=== PATIENT | female | born 1940 | race Caucasian/White ===

== ENCOUNTER 2019-03-04 15:03 | Emergency (ER) | payer MEDICARE, OTHER ==
[~2019-03-04] VITALS: Ht 167.6 cm; Wt 81.6 kg
--- OUTSIDE RECORDS SUMMARY | 2019-03-04 15:09 | XMS REPORT | Continuity of Care Document ---
Author Organization Unknown Address Unknown Allergies Active Description Code Type Severity Reaction Onset Reported/Identified Relationship to Patient Clinical Status Yes CIPROFLOXACIN 89025 DRUG INGREDI Low Rash 08/21/2018 Medications There is no data. Problems Date Dx Coded Attending Type Code Diagnosis Diagnosed By 09/02/2018 HAMILTON, JACKY I48.91 Unspecified atrial fibrillation 09/02/2018 HAMILTON, JACKY I48.91 Unspecified atrial fibrillation 09/02/2018 KORESUSANIJ, JACKY I48.91 Unspecified atrial fibrillation 09/02/2018 KORESUSANIJ, JACKY I48.91 Unspecified atrial fibrillation 09/02/2018 KORESUSANIJ, JACKY I48.91 Unspecified atrial fibrillation 09/02/2018 KARY FORTE I48.91 Unspecified atrial fibrillation 09/03/2018 KORESUSANIJ, JACKY I48.91 Unspecified atrial fibrillation 09/03/2018 KORESUSANIJ, JACKY I48.91 Unspecified atrial fibrillation 09/03/2018 KORECKIJ, JACKY I48.91 Unspecified atrial fibrillation 09/03/2018 KORECKIJ, JACKY I48.91 Unspecified atrial fibrillation 09/03/2018 KORECKIJ, JACKY I48.91 Unspecified atrial fibrillation 09/03/2018 KORECKIJ, JACKY I48.91 Unspecified atrial fibrillation 09/03/2018 KORECKIJ, JACKY I48.91 Unspecified atrial fibrillation 09/03/2018 KORECKIJ, JACKY I48.91 Unspecified atrial fibrillation 09/03/2018 KORECKIJ, JACKY I48.91 Unspecified atrial fibrillation 09/03/2018 KORECKIJ, JACKY I48.91 Unspecified atrial fibrillation 09/03/2018 KORECKIJ, JACKY I48.91 Unspecified atrial fibrillation 09/03/2018 KORECKIJ, JACKY I48.91 Unspecified atrial fibrillation 09/04/2018 KORECKIJ, JACKY I48.91 Unspecified atrial fibrillation 09/04/2018 HAMILTON, JACKY I48.91 Unspecified atrial fibrillation 09/04/2018 HAMILTON, JACKY I48.91 Unspecified atrial fibrillation 09/04/2018 HAMILTON, JACKY I48.91 Unspecified atrial fibrillation 09/04/2018 I10 Essential (primary) hypertension 09/04/2018 KARY FORTE I10 Essential (primary) hypertension 09/04/2018 HAMILTON JACKY M48.062 Spinal stenosis, lumbar region with neurogenic claudication 09/04/2018 HAMILTON, JACKY M48.062 Spinal stenosis, lumbar region with neurogenic claudication 09/04/2018 HAMILTON, JACKY M48.062 Spinal stenosis, lumbar region with neurogenic claudication 09/11/2018 Z79.01 intermediate (current) use of anticoagulants 09/11/2018 KARY FORTE Z79.01 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 crystal cutter (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) use of anticoagulants 09/11/2018 E03.9 Hypothyroidism, unspecified 09/15/2018 78 Atrial fibrillation 09/15/2018 I48.0 Paroxysmal atrial fibrillation 09/15/2018 I48.0 Paroxysmal atrial fibrillation 09/15/2018 I07.1 Rheumatic tricuspid insufficiency 09/15/2018 KARY FORTE I07.1 Rheumatic tricuspid insufficiency 10/27/2018 KARY FORTE E78.5 Hyperlipidemia, unspecified 10/27/2018 KARY FORTE E78.5 Hyperlipidemia, unspecified 10/27/2018 KARY FORTE E78.5 Hyperlipidemia, unspecified 10/27/2018 KARY FORTE I48.91 Unspecified atrial fibrillation 10/27/2018 KARY FORTE E78.5 Hyperlipidemia, unspecified 10/27/2018 KARY FORTE I48.91 Unspecified atrial fibrillation Procedures Code Description Performed By Performed On IVT3 INSERT PERIPHERAL IV 09/02/2018 [id number] HEMOGLOBIN 09/02/2018 GOY9058 TYPE AND SCREEN 09/02/2018 RVD319 NOTIFY PHYSICIAN 09/02/2018 RFY396 HEIGHT AND WEIGHT 09/02/2018 OFI665 VITAL SIGNS 09/02/[address] SEQUENTIAL COMPRESSION DEVICE 09/02/2018 MWQ421 MAINTAIN SEQUENTIAL COMPRESSION DEVICE 09/02/2018 ZMF292 APPLY WARMING BLANKET 09/02/2018 TRR877 GLUCOSE POC 09/02/2018 TYZ0630 ABORH TYPE 09/02/2018 LGN3341 ANTIBODY SCREEN 09/02/2018 LVN6776 HEMOGLOBIN 09/02/2018 PWP7368 ABORH TYPE 09/02/2018 UFQ7889 ANTIBODY SCREEN 09/02/2018 ECG1 ECG 09/02/2018 ECG1 ECG 09/02/[address] PATIENT IN OBSERVATION 09/02/2018 DZB2476 RETYPE PATIENT ABORH 09/02/2018 COD2 FULL CODE 09/02/2018 KLP021 IP CONSULT TO HOSPITALIST 09/02/2018 MIR708 TELEMETRY MONITORING - CLASS I 09/02/2018 ATK511 IP CONSULT TO CARDIOLOGY 09/02/2018 [id number] BASIC METABOLIC PANEL 09/02/2018 BCI3665 CBC AND DIFF (MANUAL DIFF IF NECESSARY) 09/02/2018 KQX6230 HEMOGLOBIN A1C 09/02/2018 XAA7121 THYROID STIMULATING HORMONE 09/02/2018 ALF7761 RETYPE PATIENT ABORH 09/02/2018 JNF8168 NURSING COMMUNICATION 09/02/2018 ECH25 ECHO COMPLETE WITH DOPPLER AND COLOR FLOW 09/02/2018 DIET24 DIET 09/02/2018 RLO8192 NURSING COMMUNICATION 09/02/2018 VUH0389 NURSING COMMUNICATION 09/02/2018 CQA4723 POTASSIUM 09/03/2018 VHZ4785 POTASSIUM 09/03/2018 SUR1 CASE REQUEST OPERATING ROOM 09/03/2018 DIET41 DIET NPO 09/03/2018 IJR295 INCENTIVE SPIROMETRY NURSING 09/03/2018 VFD3142 XR LUMBAR SPINE 2 OR 3 VIEWS 09/03/2018 NAP4037 XR SPINE SINGLE VIEW 09/03/2018 HGU980 CONSULT TO CARE PROGRESSION 09/03/2018 PCN810 REASON FOR NO VTE PROPHYLAXIS - PHARMACOLOGICAL 09/03/2018 IVT11 SALINE LOCK IV 09/03/2018 SQA067 UP WITH ASSISTANCE 09/03/2018 HUA699 WEIGHT BEARING STATUS 09/03/2018 QBC008 NOTIFY PHYSICIAN 09/03/2018 TIV198 NURSING COMMUNICATION 09/03/2018 OZT537 INCENTIVE SPIROMETRY NURSING 09/03/2018 OYQ121 INTAKE AND OUTPUT 09/03/2018 ZUO165 VITAL SIGNS 09/03/2018 WVE766 FREQUENT ASSESSMENT 09/03/2018 NYA047 POST-OP ILEUS PREVENTION 09/03/2018 PRE5 FALL PRECAUTIONS 09/03/2018 PT4 PT EVAL AND TREAT 09/03/2018 LJZ341 REASON FOR NO VTE PROPHYLAXIS - PHARMACOLOGICAL 09/03/2018 EVQ672 WEIGHT BEARING STATUS 09/03/2018 QNK320 STRAIGHT CATH 09/03/2018 LPV248 INTAKE AND OUTPUT 09/03/[address] SEQUENTIAL COMPRESSION DEVICE 09/03/2018 GKR125 MAINTAIN SEQUENTIAL COMPRESSION DEVICE 09/03/2018 OT1 OT EVAL AND TREAT 09/03/2018 DIET24 DIET 09/03/2018 YRG3995 BASIC METABOLIC PANEL 09/04/2018 FYW1857 CBC AND DIFF (MANUAL DIFF IF NECESSARY) 09/04/2018 FHC3055 MAGNESIUM 09/04/2018 JHW4937 BASIC METABOLIC PANEL 09/04/2018 PLY1913 CBC AND DIFF (MANUAL DIFF IF NECESSARY) 09/04/2018 LRZ8466 MAGNESIUM 09/04/2018 DIET24 DIET 09/04/2018 SNT940 WEIGHT BEARING STATUS 09/04/2018 CVH285 FOLLOW UP PRIMARY PHYSICIAN 09/04/2018 QPX117 CHANGE DRESSING 09/04/2018 ALQ127 DISCHARGE INSTRUCTIONS 09/04/2018 TPK908 PATIENT MAY SHOWER 09/04/2018 NUR6 ACTIVITY ORDER 09/04/2018 ADT8 DISCHARGE PATIENT 09/04/2018 IVT10 DISCONTINUE IV 09/04/2018 ADT8 DISCHARGE PATIENT 09/04/2018 POC44 POCT LIPID PANEL 10/27/2018 POC44 POCT LIPID PANEL 10/27/2018 CAR54 ECG 10/27/2018 Results Test Result Range HEMOGLOBIN - 09/02/18 10:35 Hemoglobin 13.1 12.0-15.0 ABORH TYPE - 09/02/18 10:35 ABORH Type A Positive NRG ANTIBODY SCREEN - 09/02/18 10:35 Antibody Screen Negative Negative CBC AND DIFF (MANUAL DIFF IF NECESSARY) - 09/02/18 15:42 WBC 4.41 4.00-11.00 Hematocrit 34 36-45 Hemoglobin 11.9 12.0-15.0 MCH 32 27-34 MCHC 35 32-36 MCV 90 80-99 MPV 8.7 9.4-12.3 Platelet Count 245 140-400 RBC 3.74 4.00-5.00 RDW 12.3 9.0-14.5 NUCLEATED RBCS 0 0-0 % NEUTROPHILS 44 45-78 %LYMPHOCYTES 42 15-47 %MONOCYTES 10 0-12 %EOSINOPHILS 2 0-7 %BASOPHILS 1 0-2 % IMM GRANS 1 0-1 # GRANULOCYTES 1.97 1.70-6.80 # LYMPHOCYTES 1.85 1.00-3.30 # MONOCYTES 0.46 0.20-0.90 # EOSINOPHILS 0.10 0.00-0.40 # BASOPHILS 0.03 0.00-0.10 BASIC METABOLIC PANEL - 09/02/18 15:42 Blood Urea Nitrogen 13 7-26 Chloride 96 96-112 Carbon Dioxide 26 20-32 Creatinine 0.6 0.4-1.1 Glucose 106 70-100 Potassium 3.6 3.5-5.3 Sodium 130 133-147 Calcium 9.9 8.4-10.5 Anion Gap 8 TX 5-17 GFR FEMALE AA 116 TX 60-200 GFR FEMALE NON-AA 96 TX 60-200 HEMOGLOBIN A1C - 09/02/18 15:42 Hemoglobin A1C 6.1 4.0-5.6 THYROID STIMULATING HORMONE - 09/02/18 15:42 Thyroid Stimulating Hormone 0.49 0.47-4.68 RETYPE PATIENT ABORH - 09/02/18 15:42 ABORH Type A Positive NRG Confirm Blood Type Yes NRG POTASSIUM - 09/03/18 07:19 Potassium 4.1 3.5-5.3 CBC AND DIFF (MANUAL DIFF IF NECESSARY) - 09/04/18 09:13 WBC 9.74 4.00-11.00 Hematocrit 35 36-45 Hemoglobin 12.3 12.0-15.0 MCH 32 27-34 MCHC 35 32-36 MCV 90 80-99 MPV 9.1 9.4-12.3 Platelet Count 258 140-400 RBC 3.90 4.00-5.00 RDW 12.4 9.0-14.5 NUCLEATED RBCS 0 0-0 % NEUTROPHILS 84 45-78 %LYMPHOCYTES 10 15-47 %MONOCYTES 5 0-12 %EOSINOPHILS 0 0-7 %BASOPHILS 0 0-2 % IMM GRANS 1 0-1 # GRANULOCYTES 8.25 1.70-6.80 # LYMPHOCYTES 0.96 1.00-3.30 # MONOCYTES 0.52 0.20-0.90 # EOSINOPHILS 0.00 0.00-0.40 # BASOPHILS 0.01 0.00-0.10 BASIC METABOLIC PANEL - 09/04/18 09:13 Blood Urea Nitrogen 18 7-26 Chloride 93 96-112 Carbon Dioxide 29 20-32 Creatinine 0.8 0.4-1.1 Glucose 113 70-100 Potassium 3.5 3.5-5.3 Sodium 134 133-147 Calcium 9.7 8.4-10.5 Anion Gap 12 TX 5-17 GFR FEMALE AA 83 TX 60-200 GFR FEMALE NON-AA 69 TX 60-200 MAGNESIUM - 09/04/18 09:13 Magnesium 1.1 1.4-2.7 BASIC METABOLIC PANEL - 09/15/18 14:31 Blood Urea Nitrogen 14 7-26 Chloride 91 96-112 Carbon Dioxide 29 20-32 Creatinine 0.6 0.4-1.1 Glucose 113 70-100 Potassium 3.7 3.5-5.3 Sodium 131 133-147 Calcium 9.4 8.4-10.5 Anion Gap 11 TX 5-17 GFR FEMALE AA 116 TX 60-200 GFR FEMALE NON-AA 96 TX 60-200 MAGNESIUM - 09/15/18 14:31 Magnesium 1.2 1.4-2.7 Encounters ACCT No. Visit Date/Time Discharge Status Pt. Type Provider Facility Loc./Unit Complaint [id number] 10/27/2018 15:13:14 10/27/2018 23:59:59 CLS Outpatient KARY FORTE [facility] Paroxysmal Atrial Fibrillation [id number] 09/15/2018 14:25:38 09/15/2018 23:59:59 CLS Outpatient [facility] Paroxysmal atrial fibrillation [id number] 09/15/2018 13:00:36 09/15/2018 23:59:59 CLS Outpatient [facility] Atrial fibrillation [id number] 09/02/2018 09:26:00 09/04/2018 15:58:00 DIS Outpatient JACKY VILLASENOR [facility] Unspecified atrial fibrillation [id number] 09/03/2018 12:00:35 Document Registration
--- NOTE | 2019-03-04 16:03 | ED Integumentary General ---
General Chief Complaint: Skin/Wound Problems Stated Complaint: LT HEEL PAIN Nursing Triage Note: PATIENT C/O BLISTER ON THE INSIDE OF HER LEFT FOOT/HEEL AREA. STATES THAT IT BEGAN A SMALL BLISTER AND HAS GOTTEN LARGER SINCE THIS MORNING. SHE REPORTS THAT SHE HAD THIS SAME PROBLEM BACK IN JUNE OF 2018 AND THE VP PUBLIC RELATIONS LANCED THE BLISTER AND IT BLED A LOT. SHE CAME TO THE ER BECAUSE THE BLISTER MAKES IT PAINFUL TO WALK AND SHE IS AFRAID THAT SHE WON'T BE ABLE TO CONTROL THE BLEEDING IF IT BREAKS AT HOME ESPECIALLY SINCE SHE HAD TO BEGIN TAKING A BLOOD THINNER BACK IN SEPTEMBER. Source: patient, family Exam Limitations: no limitations History of Present Illness Date Seen by Provider: Mar 04, 2019 Time Seen by Provider: 15:58 Initial Comments This 78-year-old female presents with a recurrent blister the medial aspect of her left ankle. She had an initial blister in June which ultimately spontaneously resolved the etiology of which was never clear. Patient has had a recurrent blister to the same area. It has progressed she believes because of having them placed on AHLQUIST for atrial fibrillation in September. Patient has had multiple orthopedic Procedures. 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 She has been compliant on her AHLQUIST. She has no other evidence of bleeding or bruising. Allergies and Home Medications Patient Home Medication List Home Medication List Reviewed: Yes Review of Systems Review of Systems Constitutional: no symptoms reported EENTM: no symptoms reported Respiratory: no symptoms reported Cardiovascular: other Gastrointestinal: No abdominal pain Genitourinary: no symptoms reported Musculoskeletal: no symptoms reported Skin: see HPI, other Psychiatric/Neurological: No Symptoms Reported (blister medial left ankle) Endocrine: No Symptoms Reported Past Cmhaeqn-Xdqgep-Hqvnhs Hx Past Med/Social Hx: Reviewed Nursing Past Med/Soc Hx Patient Social History Alcohol Use: Denies Use Recreational Drug Use: No Smoking Status: Never a Smoker 2nd Hand Smoke Exposure: No Recent Foreign Travel: No Contact w/Someone Who Travel: No Recent Infectious Disease Expo: No Recent Hopitalizations: No Physical Abuse: No Sexual Abuse: No Mistreated: No Fear: No Immunizations Up To Date Tetanus Booster (TDap): Less than 5yrs Seasonal Allergies Seasonal Allergies: No Past Medical History Surgeries: Yes (BILATERAL KNEE, MULTIPLE BACK SURGERIES, ) Orthopedic Respiratory: Yes COPD Cardiac: Yes Atrial Fibrillation, Hypertension Neurological: No Genitourinary: No Gastrointestinal: Yes Gastroesophageal Reflux Musculoskeletal: Yes Chronic Back Pain Endocrine: No HEENT: No Cancer: No Psychosocial: No Integumentary: No Blood Disorders: No Physical Exam Vital Signs Vital Signs - First Documented 03/04/19 15:08 Temp 97.8 Pulse 107 Resp 18 B/P (MAP) 152/75 (100) Pulse Ox 95 O2 Delivery Room Air Capillary Refill : Less Than 3 Seconds General Appearance: WD/WN, no apparent distress HEENT: normal ENT inspection Neck: normal inspection Cardiovascular: irregularly irregular Respiratory: lungs clear Gastrointestinal: non tender, soft Back: normal inspection Extremities: normal range of motion, non-tender, normal inspection Neurologic/Psychiatric: no motor/sensory deficits, alert, normal mood/affect Skin: normal color, warm/dry, other (blister medial aspect left ankle) Skin Problem Character: bullous Progress/Results/Core Measures Results/Orders Vital Signs/I&O 03/04/19 15:08 Temp 97.8 Pulse 107 Resp 18 B/P (MAP) 152/75 (100) Pulse Ox 95 O2 Delivery Room Air Blood Pressure Mean: 100 Progress Progress Note : Time: 16:02 Progress Note After a discussion with the patient and her daughter concerning treatment options I aspirated the blister with an 18-gauge needle and sent the fluid which was serosanguineous for culture and sensitivity. I applied pressure dressing and applying gauze and Coban and. Patient tolerated the procedure well. I recommended the patient elevate the left foot above the level of the heart and leave the pressure dressing in place for at least 36 hours. I asked that she follow-up with her primary care physician and her historical site guide on Friday. I invited her return to the emergency department should any further problems or questions. Departure Impression Primary Impression: Blister Disposition: HOME, SELF-CARE Condition: Improved Departure-Patient Inst. Decision time for Depature: 16:03 Referrals: AVNI MONTOYA MD (PCP/Family) Primary Care Physician Patient Instructions: Blisters Add. Discharge Instructions: Karina a pressure dressing in place until Friday. Follow-up with your doctor in your historical site guide on Friday. Return if any problems or questions. Elevate the left foot as much as possible. All discharge instructions reviewed with patient and/or family. Voiced understanding. DINORAH HERNANDEZ MD Mar 04, 2019 16:03
[2019-03-04 16:10] VITALS: BP 146/77
== END 2019-03-04 16:09 | disposition home or self-care (01) ==
LOC: EDUNIT# 15:03 → ER FS 15:05
DX: S90.522A Blister (nonthermal), left ankle, initial encounter (principal); I48.91 Unspecified atrial fibrillation; J44.9 Chronic obstructive pulmonary disease, unspecified; I10 Essential (primary) hypertension; K21.9 Gastro-esophageal reflux disease without esophagitis; X58.XXXA Exposure to other specified factors, initial encounter
CPT/HCPCS: 10060; 87070; 87205

== ENCOUNTER 2019-09-15 07:32 | Emergency (ER) | payer MEDICARE, OTHER ==
[~2019-09-15] VITALS: Ht 167.7 cm; Wt 84.1 kg
--- NOTE | 2019-09-15 08:37 | ED EENT ---
History of Present Illness General Chief Complaint: Nasal Problems Stated Complaint: EPISTAXIS Nursing Triage Note: Patient reports she has had an intermittent nosebleed since early yesterday morning, states it has not resolved with holding pressure since starting again this morning. Source: patient, family Exam Limitations: no limitations History of Present Illness Date Seen by Provider: Sep 15, 2019 Time Seen by Provider: 08:31 Initial Comments This 78-year-old white female presents with a left-sided epistaxis of 24 hours duration. The patient is on Ellick was for A. fib. The patient has had no other site of bleeding or bruising. The patient has had a number of large clots that have passed down her throat. Next The patient has had no associated upper respiratory symptoms, fever, chills, headache photophobia or stiff neck. She is under the care of [facility] cardiology. She has seen Dr. Cox in the past. Allergies and Home Medications Allergies Coded Allergies: ciprofloxacin (Verified Allergy, Unknown, 09/15/19) Patient Home Medication List Home Medication List Reviewed: Yes Review of Systems Review of Systems Constitutional: No chills, No fever Eyes: No Symptoms Reported Ears: No Symptoms Reported Nose: see HPI, clots, epistaxis (left sided); denies purulent discharge Mouth: other (clots down the back of the throat from the epistaxis.) Throat: other (clots down the back of the throat from the left-sided epistaxis.) Respiratory: no symptoms reported Cardiovascular: no symptoms reported Gastrointestinal: no symptoms reported : No Musculoskeletal: no symptoms reported Skin: no symptoms reported, change in hair/nails Hematologic/Lymphatic: No Symptoms Reported Immunological/Allergic: no symptoms reported Past Zfzyybc-Fsgjvc-Rigpaa Hx Past Med/Social Hx: Reviewed Nursing Past Med/Soc Hx Patient Social History Alcohol Use: Denies Use Recreational Drug Use: No Smoking Status: Never a Smoker 2nd Hand Smoke Exposure: No Recent Foreign Travel: No Contact w/Someone Who Travel: No Recent Infectious Disease Expo: No Recent Hopitalizations: No Physical Abuse: No Sexual Abuse: No Mistreated: No Fear: No Immunizations Up To Date Tetanus Booster (TDap): Less than 5yrs Seasonal Allergies Seasonal Allergies: No Past Medical History Surgeries: Yes (BILATERAL KNEE, MULTIPLE BACK SURGERIES, ) Orthopedic Respiratory: Yes COPD Cardiac: Yes Atrial Fibrillation, Hypertension Neurological: No Genitourinary: No Gastrointestinal: Yes Gastroesophageal Reflux Musculoskeletal: Yes Chronic Back Pain Endocrine: No HEENT: No Cancer: No Psychosocial: No Integumentary: No Blood Disorders: No Physical Exam Vital Signs Vital Signs - First Documented 09/15/19 07:39 Temp 36.9 Pulse 102 Resp 18 B/P (MAP) 161/82 (108) Pulse Ox 98 O2 Delivery Room Air Height, Weight, BMI Height: 5'6.00" Weight: 180lbs. oz. 81.983498rq; 29.00 BMI Method:Stated General Appearance: WD/WN, mild distress Eyes: bilateral eye normal inspection Ears: bilateral ear auricle normal Nose: active bleeding Mouth/Throat: normal mouth inspection Neck: non-tender, supple Cardiovascular: irregularly irregular Respiratory: lungs clear, normal breath sounds, no respiratory distress Gastrointestinal: normal bowel sounds, non tender, soft Neurologic/Psychiatric: no motor/sensory deficits, alert, normal mood/affect, oriented x 3 Skin: normal color, warm/dry Progress/Results/Core Measures Results/Orders Vital Signs/I&O 09/15/19 07:39 Temp 36.9 Pulse 102 Resp 18 B/P (MAP) 161/82 (108) Pulse Ox 98 O2 Delivery Room Air Blood Pressure Mean: 108 Progress Progress Note : Time: 08:37 Progress Note I placed a posterior Merocel pack in the left nostril without difficulty. The patient had no further bleeding during her observation period in the emergency department. The oral pharynx demonstrated no evidence of further bleeding. Consultation with Dr. Cox's office was undertaken. They requested that we initiate Keflex 500 mg 3 times a day for the next 5 days. They will see the patient in 4 days on Friday. They also recommended Afrin spray to the Merisel packing twice a day to help prevent further bleeding. I discussed this with the patient and family and asked that they return if they had any further episodes of epistaxis. Departure Impression Primary Impression: Epistaxis Additional Impression: Atrial fibrillation Qualified Codes: I48.11 - Longstanding persistent atrial fibrillation Disposition: 01 HOME, SELF-CARE Condition: Improved Departure-Patient Inst. Decision time for Depature: 08:39 Referrals: AVNI MONTOYA MD (PCP/Family) Primary Care Physician Patient Instructions: Nosebleeds (DC) Add. Discharge Instructions: Apply Afrin spray to your nasal packing twice daily. Keflex 500 mg 3 times a day for the next 5 days. Follow-up with Dr. Cox on Friday at 8 a.m. Come back if you have any further problems or questions. All discharge instructions reviewed with patient and/or family. Voiced understanding. Scripts Oxymetazoline HCl (Afrin) 15 Ml Mist 15 ML NS BID PRN for 7 Days, EA Prov: DINORAH HERNANDEZ MD 09/15/19 Cephalexin (Keflex) 500 Mg Capsule 500 MG PO TID, #14 CAP Prov: DINORAH HERNANDEZ MD 09/15/19 DINORAH HERNANDEZ MD Sep 15, 2019 08:37
[2019-09-15] MEDS ORDERED: OXYM15MI4 NS (08:44)
[2019-09-15] MEDS ORDERED: CEPH-507 PO (08:44)
[2019-09-15 08:58] VITALS: BP 158/79
== END 2019-09-15 08:58 | disposition home or self-care (01) ==
LOC: EDUNIT# 07:32 → ER FS 07:33
DX: R04.0 Epistaxis (principal); I48.91 Unspecified atrial fibrillation; J44.9 Chronic obstructive pulmonary disease, unspecified; I10 Essential (primary) hypertension; K21.9 Gastro-esophageal reflux disease without esophagitis; Z88.1 Allergy status to other antibiotic agents
CPT/HCPCS: 30901

== ENCOUNTER → 2020-04-18 | Outpatient (CLI) | payer MEDICARE, OTHER ==
[~2020-04-18] MED LIST: CEPH-507 PO; OXYM15MI4 NS
== END ==
LOC: WOUNDCARE 13:04
PROVIDERS: ATTEND Surgery
DX: S91.302A Unspecified open wound, left foot, initial encounter (principal); D21.22 Benign neoplasm of connective and other soft tissue of left lower limb, including hip; L97.422 Non-pressure chronic ulcer of left heel and midfoot with fat layer exposed
CPT/HCPCS: 11042; A6196; G0463

== ENCOUNTER → 2020-04-25 | Outpatient (CLI) | payer MEDICARE, OTHER | LOC: WOUNDCARE 14:49 | PROVIDERS: ATTEND Surgery | DX: I96 Gangrene, not elsewhere classified (principal); S91.302A Unspecified open wound, left foot, initial encounter; D21.22 Benign neoplasm of connective and other soft tissue of left lower limb, including hip; L97.422 Non-pressure chronic ulcer of left heel and midfoot with fat layer exposed | CPT/HCPCS: 99212 ==

== ENCOUNTER → 2020-05-02 | Outpatient (CLI) | payer MEDICARE, OTHER | LOC: WOUNDCARE 15:02 | PROVIDERS: ATTEND Surgery | DX: S91.302A Unspecified open wound, left foot, initial encounter (principal); D21.22 Benign neoplasm of connective and other soft tissue of left lower limb, including hip; L97.422 Non-pressure chronic ulcer of left heel and midfoot with fat layer exposed | CPT/HCPCS: 99212 ==

== ENCOUNTER → 2020-05-16 | Outpatient (CLI) | payer MEDICARE, OTHER | LOC: WOUNDCARE 14:56 | PROVIDERS: ATTEND Surgery | DX: S91.302A Unspecified open wound, left foot, initial encounter (principal); D21.22 Benign neoplasm of connective and other soft tissue of left lower limb, including hip; L97.422 Non-pressure chronic ulcer of left heel and midfoot with fat layer exposed; I96 Gangrene, not elsewhere classified | CPT/HCPCS: 99212 ==

== ENCOUNTER → 2020-08-30 | Outpatient (CLI) | payer MEDICARE, OTHER | LOC: CARD 12:00 | PROVIDERS: ATTEND Family Medicine | DX: I08.3 Combined rheumatic disorders of mitral, aortic and tricuspid valves (principal) | CPT/HCPCS: 93306 ==

== ENCOUNTER 2022-05-28 12:09 | Emergency (ER) | payer MEDICARE, OTHER ==
--- NOTE | 2022-05-28 12:35 | ED General ---
General Chief Complaint: Abdominal/GI Problems Stated Complaint: VOMITING; GEN WEAKNESS Source of Information: Patient Exam Limitations: No Limitations History of Present Illness Date Seen by Provider: May 28, 2022 Time Seen by Provider: 12:23 Initial Comments 81-year-old female presents to the emergency department today for generalized weakness and nausea, vomiting. Symptoms present for about 3 weeks, maybe a little bit more. She states her specialist in [place] thought this may be related to some acid reflux, especially the nausea and vomiting type symptoms. They are in the process of setting up an upper endoscopy but this is yet to be scheduled. She denies any fevers chills cough chest pain abdominal pain, changes in bowel or bladder habits. She has nausea with nonbloody nonbilious emesis. The vomiting has gotten worse in the last week to week and a half. She does have history of atrial fibrillation, taking Eliquis Allergies and Home Medications Allergies Coded Allergies: ciprofloxacin (Verified Allergy, Unknown, 09/15/19) Patient Home Medication List Home Medication List Reviewed: Yes Cephalexin (Keflex) 500 Mg Capsule, 500 MG PO TID Prescribed by: DINORAH HERNANDEZ MD on 09/15/19 0844 Oxymetazoline HCl (Afrin) 15 Ml Mist, 15 ML NS BID PRN Prescribed by: DINORAH HERNANDEZ MD on 09/15/19 0844 Review of Systems Review of Systems Constitutional: malaise, weakness EENTM: no symptoms reported Respiratory: no symptoms reported Cardiovascular: no symptoms reported Gastrointestinal: nausea, vomiting Genitourinary: no symptoms reported Musculoskeletal: no symptoms reported Skin: no symptoms reported Psychiatric/Neurological: No Symptoms Reported Hematologic/Lymphatic: No Symptoms Reported Past Ubzxrwi-Fkqohm-Qycpol Hx Patient Social History Tobacco Use?: No Use of E-Cig and/or Vaping dev: No Substance use?: No Alcohol Use?: No Pt feels they are or have been: No Immunizations Up To Date Tetanus Booster (TDap): Less than 5yrs First/Initial COVID19 Vaccinat: Yes Second COVID19 Vaccination Raymond: Yes Seasonal Allergies Seasonal Allergies: No Past Medical History Surgery/Hospitalization HX: CHF; A-fib; Back surgery x4; L knee replacement; Carpal tunnel release; Tubal ligation; Cholecysectomy; GERD Surgeries: Yes (BILATERAL KNEE, MULTIPLE BACK SURGERIES, ) Orthopedic Respiratory: Yes COPD Cardiac: Yes Atrial Fibrillation, Hypertension Neurological: No Genitourinary: No Gastrointestinal: Yes Gastroesophageal Reflux Musculoskeletal: Yes Chronic Back Pain Endocrine: No HEENT: No Cancer: No Psychosocial: No Integumentary: No Blood Disorders: No Family Medical History Reviewed Nursing Family Hx No Pertinent Family Hx Physical Exam Vital Signs Vital Signs - First Documented 05/28/22 12:10 Temp 36.4 Pulse 96 Resp 19 B/P (MAP) 141/82 (101) Pulse Ox 95 O2 Delivery Room Air Capillary Refill : Height, Weight, BMI Height: 5'6.00" Weight: 180lbs. oz. [id number]; 29.00 BMI Method:Stated General Appearance: No Apparent Distress, WD/WN HEENT: PERRL/EOMI, TMs Normal, Normal ENT Inspection, Pharynx Normal Neck: Full Range of Motion, Normal Inspection, Non Tender, Supple Respiratory: Chest Non Tender, Lungs Clear, Normal Breath Sounds, No Accessory Muscle Use, No Respiratory Distress Cardiovascular: Regular Rate, Rhythm, No Edema, No Gallop, No JVD, No Murmur, Normal Peripheral Pulses Gastrointestinal: Normal Bowel Sounds, No Organomegaly, No Pulsatile Mass, Non Tender, Soft Extremity: Normal Capillary Refill, Normal Inspection, Normal Range of Motion, Non Tender, No Calf Tenderness Neurologic/Psychiatric: Alert, Oriented x3, No Motor/Sensory Deficits, Normal Mood/Affect, plant 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 II-XII Norm as Tested Skin: Normal Color, Warm/Dry Lymphatic: No Adenopathy Progress/Results/Core Measures Suspected Sepsis SIRS Temperature: Pulse: Respiratory Rate: Laboratory Tests 05/28/22 12:30: White Blood Count 8.1 Blood Pressure / Mean: Laboratory Tests 05/28/22 12:30: Creatinine 0.98, Platelet Count 334, Total Bilirubin 1.0 Results/Orders Lab Results Laboratory Tests Test 05/28/22 12:14 05/28/22 12:30 Range/Units Urine Color YELLOW Urine Clarity TURBID Urine pH 6.0 5-9 Urine Specific [place] 1.010 L 1.016-1.022 Urine Protein NEGATIVE NEGATIVE Urine Glucose (UA) NEGATIVE NEGATIVE Urine Ketones TRACE H NEGATIVE Urine Nitrite NEGATIVE NEGATIVE Urine Bilirubin 2+ H NEGATIVE Urine Urobilinogen 0.2 < = 1.0 MG/DL Urine Leukocyte Esterase 1+ H NEGATIVE Urine RBC (Auto) 1+ H NEGATIVE Urine RBC 0-2 /HPF Urine WBC 25-50 H /HPF Urine Squamous Epithelial Cells 2-5 /HPF Urine Crystals NONE /LPF Urine Bacteria LARGE H /HPF Urine Casts PRESENT /LPF Urine Hyaline Casts >50 H /LPF Urine Mucus MODERATE H /LPF Urine Culture Indicated YES White Blood Count 8.1 4.3-11.0 10^3/uL Red Blood Count 3.73 L 3.80-5.11 10^6/uL Hemoglobin 11.4 L 11.5-16.0 g/dL Hematocrit 34 L 35-52 % Mean Corpuscular Volume 92 80-99 fL Mean Corpuscular Hemoglobin 31 25-34 pg Mean Corpuscular Hemoglobin Concent 33 32-36 g/dL Red Cell Distribution Width 14.7 H 10.0-14.5 % Platelet Count 334 130-400 10^3/uL Mean Platelet Volume 10.1 9.0-12.2 fL Immature Granulocyte % (Auto) 1 % Neutrophils (%) (Auto) 68 42-75 % Lymphocytes (%) (Auto) 19 12-44 % Monocytes (%) (Auto) 11 0-12 % Eosinophils (%) (Auto) 2 0-10 % Basophils (%) (Auto) 1 0-10 % Neutrophils # (Auto) 5.5 1.8-7.8 10^3/uL Lymphocytes # (Auto) 1.5 1.0-4.0 10^3/uL Monocytes # (Auto) 0.9 0.0-1.0 10^3/uL Eosinophils # (Auto) 0.1 0.0-0.3 10^3/uL Basophils # (Auto) 0.1 0.0-0.1 10^3/uL Immature Granulocyte # (Auto) 0.1 0.0-0.1 10^3/uL Sodium Level 136 135-145 MMOL/L Potassium Level 3.1 L 3.6-5.0 MMOL/L Chloride Level 87 L 98-107 MMOL/L Carbon Dioxide Level 30 21-32 MMOL/L Anion Gap 19 H 5-14 MMOL/L Blood Urea Nitrogen 24 H 7-18 MG/DL Creatinine 0.98 0.60-1.30 MG/DL Estimat Glomerular Filtration Rate 57 BUN/Creatinine Ratio 24 Glucose Level 112 H 70-105 MG/DL Calcium Level 9.5 8.5-10.1 MG/DL Corrected Calcium 9.3 8.5-10.1 MG/DL Total Bilirubin 1.0 0.1-1.0 MG/DL Aspartate Amino Transf (AST/SGOT) 19 5-34 U/L Alanine Aminotransferase (ALT/SGPT) 6 0-55 U/L Alkaline Phosphatase 76 40-136 U/L Troponin I < 0.30 <0.30 NG/ML Total Protein 7.1 6.4-8.2 GM/DL Albumin 4.3 3.2-4.5 GM/DL Lipase 29 8-78 U/L My Orders Orders - GREGORYJUANITO DO Cbc With Automated Diff (05/28/22 12:31) Comprehensive Metabolic Panel (05/28/22 12:31) Lipase (05/28/22 12:31) Urinalysis (05/28/22 12:31) Ekg Tracing (05/28/22 12:31) Troponin I Fs (05/28/22 12:31) Ns Iv 500 Ml (Sodium Chloride 0.9%) (05/28/22 12:45) Ondansetron Injection (Zofran Injectio (05/28/22 12:45) Urine Culture (05/28/22 12:14) Ceftriaxone 1 Gm Pre-Mix (Rocephin 1 Gm (05/28/22 13:15) Medications Given in ED Current Medications Medications Dose Ordered Sig/Vinnie Route Start Time Stop Time Status Last Admin Dose Admin Ondansetron HCl 8 mg ONCE ONCE IVP 05/28/22 12:45 05/28/22 12:46 DC 05/28/22 12:42 8 MG Vital Signs/I&O 05/28/22 12:10 Temp 36.4 Pulse 96 Resp 19 B/P (MAP) 141/82 (101) Pulse Ox 95 O2 Delivery Room Air Capillary Refill : Departure Communication (Admissions) Patient is hemodynamically stable with a reassuring exam. Initially A. fib with rate around 115. Once resting in the bed her overall rate is between 80 and 90. She is normotensive. She does have a significant urinary tract infection. She does tell a concerning story for weight loss over the last 3 years that has been unintentional. She states is due to being unable to eat eat anything due to decreased appetite and nausea. She tells me that this year she is lost about 50 pounds, going from 185-135. This is currently being evaluated and she is in the process of scheduling an upper and lower endoscopy for what sounds like a malignancy rule out. She has no current abdominal pain. For now we will go ahead and treat her UTI as this is likely the cause of her overall weakness for the last few weeks. She will continue to pursue upper and lower endoscopy on an outpatient basis. I advised her to follow-up with her primary care physician for further evaluation of her weight loss. Impression Primary Impression: Urinary tract infection Qualified Codes: N30.00 - Acute cystitis without hematuria Additional Impressions: Generalized weakness Weight loss Disposition: HOME, SELF-CARE Condition: Stable Departure-Patient Inst. Referrals: AVNI MONTOYA MD (PCP) Primary Care Physician Patient Instructions: Urinary Tract Infections in Adults, Fatigue ED Add. Discharge Instructions: Take the antibiotics as prescribed until they are gone. Increase your fluids at home. Eat as you are able. I do recommend you scheduling upper and lower endoscopy as soon as you can. I recommend you follow-up with your primary doctor for further discussion of the weight loss use the nausea medicine as prescribed as needed. Return to the emergency department for any severe concerns. All discharge instructions reviewed with patient and/or family. Voiced underst anding. Scripts Ondansetron (Ondansetron Odt) 8 Mg Tab.rapdis 8 MG PO Q6H for Nausea for 7 Days, #28 TAB Prov: JUANITO JENKINS DO 05/28/22 Cephalexin (Cephalexin) 500 Mg Tablet 500 MG PO TID for 7 Days, #21 TAB Prov: JUANITO JENKINS DO 05/28/22 JUANITO JENKINS DO May 28, 2022 12:35
[2022-05-28 12:37] LABS: BASOPHILS # (AUTO) 0.1 10^3/uL (0.0-0.1); BASOPHILS % (AUTO) 1 % (0-10); EOSINOPHILS # (AUTO) 0.1 10^3/uL (0.0-0.3); EOSINOPHILS % (AUTO) 2 % (0-10); HEMATOCRIT 34 % (35-52); HEMOGLOBIN 11.4 g/dL (11.5-16.0); LYMPHOCYTES # (AUTO) 1.5 10^3/uL (1.0-4.0); LYMPHOCYTES % (AUTO) 19 % (12-44); MEAN CORPUSCULAR HEMOGLOBIN 31 pg (25-34); MEAN CORPUSCULAR HGB CONC 33 g/dL (32-36); MEAN CORPUSCULAR VOLUME 92 fL (80-99); MEAN PLATELET VOLUME 10.1 fL (9.0-12.2); MONOCYTES # (AUTO) 0.9 10^3/uL (0.0-1.0); MONOCYTES % (AUTO) 11 % (0-12); NEUTROPHILS # (AUTO) 5.5 10^3/uL (1.8-7.8); NEUTROPHILS % (AUTO) 68 % (42-75); PLATELET COUNT 334 10^3/uL (130-400); WHITE BLOOD COUNT 8.1 10^3/uL (4.3-11.0)
[2022-05-28 12:38] LABS: CLARITY,URINE TURBID; COLOR,URINE YELLOW; GLUCOSE, URINE (UA) NEGATIVE (NEGATIVE); KETONES,URINE TRACE (NEGATIVE); LEUKOCYTE ESTERASE ,URINE 1+ (NEGATIVE); NITRITE,URINE NEGATIVE (NEGATIVE); PROTEIN,URINE NEGATIVE (NEGATIVE)
[2022-05-28] MEDS ORDERED: ONDANSETRON 4 MG/2 ML (SDV) Z0FRAN IVP ONE (12:45)
[2022-05-28] MEDS ORDERED: NS IV 500 ML 500 ML IV SCH (12:45)
[2022-05-28 12:56] LABS: BACTERIA,URINE LARGE /HPF; BILIRUBIN,URINE 2+ (NEGATIVE); RBC,URINE 0-2 /HPF; WBC,URINE 25-50 /HPF
[2022-05-28 12:57] LABS: HYALINE CASTS, URINE >50 /LPF
[2022-05-28 12:59] LABS: BUN/CREATININE RATIO 24; CALCIUM 9.5 MG/DL (8.5-10.1); CARBON DIOXIDE 30 MMOL/L (21-32); CHLORIDE 87 MMOL/L (98-107); CREATININE SERUM 0.98 MG/DL (0.60-1.30); GFR ESTIMATED 57; GLUCOSE 112 MG/DL (70-105); POTASSIUM 3.1 MMOL/L (3.6-5.0); SODIUM 136 MMOL/L (135-145)
[2022-05-28 13:00] LABS: ALANINE AMINOTRANSFERASE 6 U/L (0-55); ALBUMIN 4.3 GM/DL (3.2-4.5); ALKALINE PHOSPHATASE 76 U/L (40-136); LIPASE 29 U/L (8-78); TOTAL PROTEIN 7.1 GM/DL (6.4-8.2)
[2022-05-28] MEDS ORDERED: ONDA8TAB13 PO (13:09)
[2022-05-28] MEDS ORDERED: CEPH500T PO (13:09)
[2022-05-28] MEDS ORDERED: cefTRIAXone 1 GM PRE-MIX 50 ML IV ONE (13:15)
[2022-05-28 13:35] VITALS: BP 100/55
== END 2022-05-28 13:37 | disposition home or self-care (01) ==
LOC: EDUNIT# 12:09 → ER FS 12:11
DX: N39.0 Urinary tract infection, site not specified (principal); R53.1 Weakness; R63.4 Abnormal weight loss; I48.91 Unspecified atrial fibrillation; Z79.01 Long term (current) use of anticoagulants
CPT/HCPCS: 36415; 80053; 81000; 83690; 84484; 85025; 87077; 87088; 87186; 93005; 93041

== ENCOUNTER 2022-05-31 12:29 | Inpatient (IN) | payer MEDICARE, OTHER ==
[~2022-05-31] VITALS: Ht 160 cm; Wt 80.2 kg
[~2022-05-31 12:29] MED LIST changes: +CEPH500T PO; +ONDA8TAB13 PO
--- NOTE | 2022-05-31 12:56 | ED General ---
General Chief Complaint: General Problems/Pain Stated Complaint: VOMITING/NOT EATING Nursing Triage Note: PT TO ROOM BY WHEELCHAIR WITH PT SON. PT STATES SHE HAS HAD WORSENING WEAKNESS, N/V FOR TWO WEEKS. STATES SHE WAS SEEN IN [facility] ER ON FRIDAY AND STARTED ON ABX FOR UTI. PT STATES SHE IS STILL TAKING ABX AND IS "JUST FEELING WORSE." PT ALSO REPORTS HAVING AN APPT SOON WITH DR RIBERA TO PERFORM A SCOPE. PT STATES HE BOWEL MOVEMENTS HAVE BEEN NORMAL FOR HER. PT IS A&OX4, SPEECH NORMAL ON ARRIVAL Source of Information: Patient, Family Exam Limitations: No Limitations History of Present Illness Date Seen by Provider: May 31, 2022 Time Seen by Provider: 12:40 Initial Comments Patient is an 81-year-old female who presents to the emergency department with worsening generalized weakness. She was in the emergency department at [facility] a couple of days ago with nausea vomiting and weakness. She was diagnosed with a urinary tract infection. She was prescribed some Keflex. She states she has been taking this medication but she has continued to feel worse. She does endorse a moderate amount of abdominal discomfort. She states every time she eats she vomits. She had told the provider on 28 May that she had had an approximate 50 pound weight loss over the last year, unintentionally. She has talked to her primary care provider about this and is scheduled to see Dr. Ribera for EGD. The patient states that she is so weak now that she has trouble navigating the 4 or 5 steps into her kitchen at home. She was driving very well up until about 2 weeks ago. She denies black or bloody stools. She denies blood in her emesis. No fevers or chills. No shortness of breath or cough. She is normally seen at [facility] in [place] for her atrial fibrillation and anticoagulation management. She has had many back surgeries, x3. She does have what sounds like a spine stimulator. She has had previous thoracentesis for fluid accumulating in the right lung. She states this was evaluated for cancer and was negative. She believes this was maybe a year ago. Son is present at the bedside for additional history. She has a daughter who is out of state currently and will be home on Friday. All other review of systems reviewed and negative except as stated. Timing/Duration: Other (weeks) Severity: Severe Associated Systoms: Loss of Appetite, Malaise, Nausea/Vomiting, Weakness Allergies and Home Medications Allergies Coded Allergies: ciprofloxacin (Verified Allergy, Unknown, 09/15/19) Patient Home Medication List Home Medication List Reviewed: Yes Apixaban (Eliquis) 5 Mg Tablet, 5 MG PO BID, (Reported) Entered as Reported by: MANUEL MCKEON on 05/31/221649 Last Action: Held Carvedilol (Carvedilol) 6.25 Mg Tablet, 6.25 MG PO BID, (Reported) Entered as Reported by: MANUEL MCKEON on 05/31/221649 Last Action: Held Cephalexin (Keflex) 500 Mg Capsule, 500 MG PO TID Prescribed by: DINORAH HERNANDEZ MD on 09/15/19 0844 Cephalexin (Cephalexin) 500 Mg Tablet, 500 MG PO TID Prescribed by: JUANITO JENKINS MD on 05/28/22 1309 Furosemide (Furosemide) 40 Mg Tablet, 40 MG PO DAILY, (Reported) Entered as Reported by: MANUEL MCKEON on 05/31/221649 Last Action: Held Levothyroxine Sodium (Levothyroxine Sodium) 112 Mcg Tablet, 112 MCG PO DAILY, (Reported) Entered as Reported by: MANUEL MCKEON on 05/31/221649 Last Action: Continued Lisinopril (Lisinopril) 20 Mg Tablet, 20 MG PO DAILY, (Reported) Entered as Reported by: MANUEL MCKEON on 05/31/221649 Last Action: Held Ondansetron (Ondansetron Odt) 8 Mg Tab.rapdis, 8 MG PO Q6H Prescribed by: JUANITO JENKINS MD on 05/28/22 1309 Oxymetazoline HCl (Afrin) 15 Ml Mist, 15 ML NS BID PRN Prescribed by: DINORAH HERNANDEZ MD on 09/15/19 0844 Spironolactone (Spironolactone) 25 Mg Tablet, 12.5 MG PO DAILY, (Reported) Entered as Reported by: MANUEL MCKEON on 05/31/221649 Last Action: Held Review of Systems Review of Systems Constitutional: see HPI EENTM: no symptoms reported Respiratory: no symptoms reported Cardiovascular: no symptoms reported Gastrointestinal: loss of appetite, nausea, vomiting Genitourinary: no symptoms reported Musculoskeletal: no symptoms reported Skin: no symptoms reported All Other Systems Reviewed Negative Unless Noted: Yes Past Baginlp-Lspujc-Ljjkmx Hx Patient Social History Tobacco Use?: No Smoking Status: Former Smoker Use of E-Cig and/or Vaping dev: No Substance use?: No Alcohol Use?: No Immunizations Up To Date Tetanus Booster (TDap): Less than 5yrs Influenza Vaccine Up-to-Date: No; Not Current First/Initial COVID19 Vaccinat: Yes Second COVID19 Vaccination Raymond: Yes Seasonal Allergies Seasonal Allergies: No Past Medical History Surgery/Hospitalization HX: CHF; A-fib; Back surgery x4; L knee replacement; Carpal tunnel release; Tubal ligation; Cholecysectomy; GERD Surgeries: Yes (BILATERAL KNEE, MULTIPLE BACK SURGERIES, ) Orthopedic Respiratory: Yes COPD Cardiac: Yes Atrial Fibrillation, Hypertension Neurological: No Genitourinary: No Gastrointestinal: Yes Gastroesophageal Reflux Musculoskeletal: Yes Chronic Back Pain Endocrine: No HEENT: No Cancer: No Psychosocial: No Integumentary: No Blood Disorders: No Family Medical History No Pertinent Family Hx Physical Exam Vital Signs Vital Signs - First Documented 05/31/22 05/31/22 12:35 13:30 Temp 36.4 Pulse 117 Resp 20 B/P (MAP) 91/75 (80) Pulse Ox 94 O2 Delivery Nasal Cannula O2 Flow Rate 2.00 Capillary Refill : Height, Weight, BMI Height: 5'6.00" Weight: 180lbs. oz. 81.697380lx; 23.00 BMI Method:Stated General Appearance: No Apparent Distress, Chronically ill, Thin Eyes: Bilateral Eye Normal Inspection, Bilateral Eye PERRL, Bilateral Eye EOMI, Bilateral Eye Scleral Icterus (mild) HEENT: PERRL/EOMI Neck: Normal Inspection Respiratory: Lungs Clear, Normal Breath Sounds, No Accessory Muscle Use, No Respiratory Distress Cardiovascular: Irregularly Irregular, Tachycardia Gastrointestinal: Soft, Abnormal Bowel Sounds (Hypoactive), Mass (Right mid abdomen; slightly tender to palpation; hypoactive bowel sounds), Tenderness (Mid abdomen) Extremity: Normal Capillary Refill, Normal Inspection, Normal Range of Motion, Non Tender, No Calf Tenderness, No Pedal Edema Neurologic/Psychiatric: Alert, Oriented x3, No Motor/Sensory Deficits, Depressed Affect Skin: Warm/Dry, Pallor Focused Exam Lactate Level 05/31/22 12:42: Lactic Acid Level 2.48*H Lactic Acid Level Laboratory Tests Test 05/31/22 12:42 Lactic Acid Level 2.48 MMOL/L (0.50-2.00) *H Progress/Results/Core Measures Suspected Sepsis SIRS Temperature: Pulse: 117 Respiratory Rate: 20 Laboratory Tests 05/31/22 12:42: White Blood Count 8.6 Blood Pressure 91 /75 Mean: 80 05/31/22 12:42: Lactic Acid Level 2.48*H Laboratory Tests 05/31/22 12:42: Creatinine 1.26, INR Comment 1.3, Platelet Count 292, Total Bilirubin 1.1H Results/Orders Lab Results Laboratory Tests Test 05/31/22 12:42 05/31/22 14:37 Range/Units White Blood Count 8.6 4.3-11.0 10^3/uL Red Blood Count 3.69 L 3.80-5.11 10^6/uL Hemoglobin 11.4 L 11.5-16.0 g/dL Hematocrit 36 35-52 % Mean Corpuscular Volume 97 80-99 fL Mean Corpuscular Hemoglobin 31 25-34 pg Mean Corpuscular Hemoglobin Concent 32 32-36 g/dL Red Cell Distribution Width 14.7 H 10.0-14.5 % Platelet Count 292 130-400 10^3/uL Mean Platelet Volume 10.1 9.0-12.2 fL Immature Granulocyte % (Auto) 1 % Neutrophils (%) (Auto) 71 42-75 % Lymphocytes (%) (Auto) 13 12-44 % Monocytes (%) (Auto) 12 0-12 % Eosinophils (%) (Auto) 2 0-10 % Basophils (%) (Auto) 1 0-10 % Neutrophils # (Auto) 6.2 1.8-7.8 10^3/uL Lymphocytes # (Auto) 1.2 1.0-4.0 10^3/uL Monocytes # (Auto) 1.1 H 0.0-1.0 10^3/uL Eosinophils # (Auto) 0.1 0.0-0.3 10^3/uL Basophils # (Auto) 0.1 0.0-0.1 10^3/uL Immature Granulocyte # (Auto) 0.1 0.0-0.1 10^3/uL Prothrombin Time 16.7 H 12.2-14.7 SEC INR Comment 1.3 0.8-1.4 Activated Partial Thromboplast Time 36 H 24-35 SEC Sodium Level 136 135-145 MMOL/L Potassium Level 3.1 L 3.6-5.0 MMOL/L Chloride Level 88 L 98-107 MMOL/L Carbon Dioxide Level 32 21-32 MMOL/L Anion Gap 16 H 5-14 MMOL/L Blood Urea Nitrogen 22 H 7-18 MG/DL Creatinine 1.26 0.60-1.30 MG/DL Estimat Glomerular Filtration Rate 42 BUN/Creatinine Ratio 17 Glucose Level 108 H 70-105 MG/DL Lactic Acid Level 2.48 *H 0.50-2.00 MMOL/L Calcium Level 8.9 8.5-10.1 MG/DL Corrected Calcium 9.0 8.5-10.1 MG/DL Magnesium Level 1.2 L 1.6-2.4 MG/DL Total Bilirubin 1.1 H 0.1-1.0 MG/DL Aspartate Amino Transf (AST/SGOT) 19 5-34 U/L Alanine Aminotransferase (ALT/SGPT) 8 0-55 U/L Alkaline Phosphatase 61 40-136 U/L Total Protein 6.6 6.4-8.2 GM/DL Albumin 3.9 3.2-4.5 GM/DL Urine Color YELLOW Urine Clarity CLOUDY Urine pH 6.0 5-9 Urine Specific [place] 1.020 1.016-1.022 Urine Protein 1+ H NEGATIVE Urine Glucose (UA) NEGATIVE NEGATIVE Urine Ketones TRACE H NEGATIVE Urine Nitrite NEGATIVE NEGATIVE Urine Bilirubin NEGATIVE NEGATIVE Urine Urobilinogen 0.2 < = 1.0 MG/DL Urine Leukocyte Esterase TRACE H NEGATIVE Urine RBC (Auto) NEGATIVE NEGATIVE Urine RBC RARE /HPF Urine WBC 5-10 H /HPF Urine Squamous Epithelial Cells 2-5 /HPF Urine Crystals NONE /LPF Urine Bacteria FEW H /HPF Urine Casts NONE /LPF Urine Mucus NEGATIVE /LPF Urine Culture Indicated CULTURE PENDING My Orders Orders - TAY AMBROCIO MD Cbc With Automated Diff (05/31/22 12:57) Comprehensive Metabolic Panel (05/31/22 12:57) Blood Culture (05/31/22 12:57) Sputum Culture (05/31/22 12:57) Urinalysis (05/31/22 12:57) Urine Culture (05/31/22 12:57) Protime With Inr (05/31/22 12:57) Partial Thromboplastin Time (05/31/22 12:57) Chest 1 View, Ap/Pa Only (05/31/22 12:57) Ed Iv/Invasive Line Start (05/31/22 12:57) Ed Iv/Invasive Line Start (05/31/22 12:57) Vital Signs Adult Sepsis Patie Q15M (05/31/22 12:57) O2 (05/31/22 12:57) Remove Rings In Anticipation O (05/31/22 12:57) Lactic Acid Analyzer (05/31/22 12:57) Ct Abdomen/Pelvis Wo (05/31/22 12:57) Ns Iv 1000 Ml (Sodium Chloride 0.9%) (05/31/22 13:00) Ondansetron Injection (Zofran Injectio (05/31/22 13:00) Pantoprazole Injection (Protonix Injecti (05/31/22 13:00) Ns Iv 1000 Ml (Sodium Chloride 0.9%) (05/31/22 13:30) Ed Admission (Communication) (05/31/22 14:36) Ceftriaxone 1 Gm Pre-Mix (Rocephin 1 Gm (05/31/22 14:45) Ns Iv 1000 Ml (Sodium Chloride 0.9%) (05/31/22 14:45) Catheter(Urinary) Insert & Ass 03,15 (05/31/22 14:36) Lidocaine 2% (Urojet) (Xylocaine Urojet) (05/31/22 14:45) Medications Given in ED Vital Signs/I&O 05/31/22 05/31/22 12:35 13:30 Temp 36.4 Pulse 117 Resp 20 B/P (MAP) 91/75 (80) Pulse Ox 94 96 O2 Delivery Nasal Cannula O2 Flow Rate 2.00 06/01/22 00:00 Intake Total 1000 ml Balance 1000 ml Capillary Refill : Blood Pressure Mean: 80 Progress Note : Time: 15:31 Progress Note Patient reassessed and provided results of all of her labs and imaging today. I communicated to her that there was some thickening in the stomach lining possibly indicating a cancer/malignancy. I informed her about suspicious lymph nodes in her abdomen as well. Her son was present at the bedside for this discussion. She is requesting some additional nausea medication. Her heart rate is down in the 80s, remains in an A. fib rhythm. Blood pressure is 90 systolic, she seems to be somewhat fluid responsive, 750 mL normal saline bolus infusing. She will be then started on a gram of Rocephin as well as normal saline at [address] Manning requested Baca catheter placement. She will go to the intensive care unit with consults to Dr. Ribera who states he will do EGD on Friday. He request Eliquis to be held. I also discussed the case with Dr. Parks who will also consult. Diagnostic Imaging Diagonstic Imaging: Xray Plain Films/CT/US/NM/MRI: [facility] [place] [place] NAME: SHANNON PANTOJA Marleny MED REC#: [id number] PT STATUS: REG ER : 1940 PHYSICIAN: TAY AMBROCIO MD ADMIT DATE: 05/31/22/ER Signed Date of Exam:05/31/22 CHEST 1 VIEW, AP/PA ONLY INDICATION: Weakness and tachycardia and hypotension. Frontal chest obtained at 01:31 p.m. There is no previous study for comparison. FINDINGS: Heart is borderline enlarged. There is mild bibasilar atelectasis. There is no pneumothorax or pleural fluid. There is some pleural fluid in the right costophrenic angle. IMPRESSION: Cardiomegaly. There is right basilar atelectasis with some pleural fluid in the right costophrenic angle. There is no pneumothorax. Dictated by: Dictated on workstation # [id number] Dict: 05/31/22 1331 Trans: 05/31/22 1349 [id number] Interpreted by: AMEENA YU MD Electronically signed by: AMEENA YU MD 05/31/22 1349 Diagonstic Imaging: CT [facility] [place] NAME: SCARLETTSHANNON Farmer MED REC#: [id number] PT STATUS: REG ER : 1940 PHYSICIAN: TAY AMBROCIO MD ADMIT DATE: 05/31/22/ER Draft Date of Exam:05/31/22 CT ABDOMEN/PELVIS WO PROCEDURE: CT abdomen and pelvis without contrast. TECHNIQUE: Multiple contiguous axial images were obtained through the abdomen and pelvis without the use of intravenous contrast. Auto Exposure Controls were utilized during the CT exam to meet ALARA standards for radiation dose reduction. INDICATION: Vomiting. Weakness. Nausea. COMPARISON: None FINDINGS: Included portions of the lung bases show large likely loculated subpulmonic pleural effusion in the right base. There is associated partial consolidation of the right lower lobe. Note is also made of mild cardiomegaly. Prominent pericardial lymph node is identified and measures 1 cm in diameter. There is also moderate calcified coronary atherosclerosis. CT ABDOMEN: Small amount of abdominopelvic ascites is present. There is no loculated fluid collection or free air. Small bowel loops are nondistended. There is scattered colonic diverticulosis, but no CT evidence of acute diverticulitis. Normal appendix cannot be adequately identified, but there is no pericecal inflammation. There is moderate distention of the stomach. There is abnormal thickened appearance to the antrum and distal body of the stomach. This does result in moderate narrowing of the lumen of the stomach in this area. This is suspicious for gastric malignancy. Several mildly prominent perigastric lymph nodes are also present. The kidneys, adrenal glands, spleen, pancreas, and liver have an unremarkable noncontrast CT appearance. There is moderate diffuse calcified aortic and arterial atherosclerosis. Osseous structures show no acute abnormalities. CT PELVIS: Small amount of free fluid is also present within the pelvis. There is no loculated fluid collection or free air. Urinary bladder is unopacified. No calculi are seen within the urinary bladder. No abnormal lymph nodes are seen. Osseous structures show no acute abnormalities. IMPRESSION: 1. Findings suspicious for malignant thickening of the distal body and antrum of the stomach. This may result in at least partial gastric outlet obstruction. Correlation with upper endoscopy is advised. 2. Moderate-sized likely loculated subpulmonic effusion in the right base. 3. Multiple mildly prominent perigastric and pericardial lymph nodes suspicious for metastatic disease. Correlation with CT PET is advised. 4. Mild abdominal pelvic ascites. 5. Colonic diverticulosis, but no CT evidence of acute diverticulitis. Dictated on workstation # [id number] Dict: 05/31/22 1355 Trans: 05/31/22 1408 [facility] [id number] Interpreted by: NITO QUIROGA MD Electronically signed by: Critical Care Note Critical Care Start Time: 12:40 Stop Time: 14:30 Total Time (minutes) 45min critical care time in the eval and management of this patient with Hypotension, vomiting, weight loss. Time includes initial eval, IV placement x2 with Fluid resuscitation; review of med record; review and interpretation of labs and imaging studies; discussion with gen surgery, separating machine operator; cardiology and family Departure Communication (Admissions) Time/Spoke to Admitting Phy: 14:[address] Manning - ruben Parks consult; siena; ICU admit Time/Spoke to Consulting Phy: 14:[address] Ribera; dannielle KHAN Friday Impression Primary Impression: Hypotension Qualified Codes: I95.9 - Hypotension, unspecified Additional Impressions: Gastric outlet obstruction Hypovolemic shock Atrial fibrillation with rapid ventricular response Disposition: ADMITTED INPATIENT Condition: Critical Admissions Decision to Admit Reason: Admit from ER (General) Decision to Admit/Date: May 31, 2022 Time/Decision to Admit Time: 14:30 Departure-Patient Inst. Referrals: AVNI MONTOYA MD (PCP/Family) Primary Care Physician Copy Copies To 1: AVNI MONTOYA MD, KATHRYN M MD May 31, 2022 12:56
[2022-05-31] MEDS ORDERED: NS IV 1000 ML 1,000 ML IV SCH ×2 (13:00→13:30)
[2022-05-31] MEDS ORDERED: PANTOPRAZOLE 40 MG (PROTONIX) VIAL IV ONE (13:00)
[2022-05-31] MEDS ORDERED: ONDANSETRON 4 MG/2 ML (SDV) Z0FRAN IVP ONE ×2 (13:00→15:00)
[2022-05-31 13:10] LABS: BASOPHILS # (AUTO) 0.1 10^3/uL (0.0-0.1); BASOPHILS % (AUTO) 1 % (0-10); EOSINOPHILS # (AUTO) 0.1 10^3/uL (0.0-0.3); EOSINOPHILS % (AUTO) 2 % (0-10); HEMATOCRIT 36 % (35-52); HEMOGLOBIN 11.4 g/dL (11.5-16.0); LYMPHOCYTES # (AUTO) 1.2 10^3/uL (1.0-4.0); LYMPHOCYTES % (AUTO) 13 % (12-44); MEAN CORPUSCULAR HEMOGLOBIN 31 pg (25-34); MEAN CORPUSCULAR HGB CONC 32 g/dL (32-36); MEAN CORPUSCULAR VOLUME 97 fL (80-99); MEAN PLATELET VOLUME 10.1 fL (9.0-12.2); MONOCYTES # (AUTO) 1.1 10^3/uL (0.0-1.0); MONOCYTES % (AUTO) 12 % (0-12); NEUTROPHILS # (AUTO) 6.2 10^3/uL (1.8-7.8); NEUTROPHILS % (AUTO) 71 % (42-75); PLATELET COUNT 292 10^3/uL (130-400); WHITE BLOOD COUNT 8.6 10^3/uL (4.3-11.0)
[2022-05-31 13:14] LABS: ALBUMIN 3.9 GM/DL (3.2-4.5); POTASSIUM 3.1 MMOL/L (3.6-5.0)
[2022-05-31 13:15] LABS: CALCIUM 8.9 MG/DL (8.5-10.1)
[2022-05-31 13:16] LABS: TOTAL PROTEIN 6.6 GM/DL (6.4-8.2)
[2022-05-31 13:17] LABS: INR 1.3 (0.8-1.4); PROTHROMBIN TIME PATIENT 16.7 SEC (12.2-14.7)
[2022-05-31 13:18] LABS: BILIRUBIN,TOTAL 1.1 MG/DL (0.1-1.0)
[2022-05-31 13:20] LABS: CREATININE SERUM 1.26 MG/DL (0.60-1.30)
--- NOTE | 2022-05-31 13:34 | Diagnostic Imaging Report ---
INDICATION: Weakness and tachycardia and hypotension. Frontal chest obtained at 01:31 p.m. There is no previous study for comparison. FINDINGS: Heart is borderline enlarged. There is mild bibasilar atelectasis. There is no pneumothorax or pleural fluid. There is some pleural fluid in the right costophrenic angle. IMPRESSION: Cardiomegaly. There is right basilar atelectasis with some pleural fluid in the right costophrenic angle. There is no pneumothorax. Dictated by: Dictated on workstation # [id number]
--- NOTE | 2022-05-31 14:08 | Diagnostic Imaging Report ---
PROCEDURE: CT abdomen and pelvis without contrast. TECHNIQUE: Multiple contiguous axial images were obtained through the abdomen and pelvis without the use of intravenous contrast. Auto Exposure Controls were utilized during the CT exam to meet ALARA standards for radiation dose reduction. INDICATION: Vomiting. Weakness. Nausea. COMPARISON: None FINDINGS: Included portions of the lung bases show large likely loculated subpulmonic pleural effusion in the right base. There is associated partial consolidation of the right lower lobe. Note is also made of mild cardiomegaly. Prominent pericardial lymph node is identified and measures 1 cm in diameter. There is also moderate calcified coronary atherosclerosis. CT ABDOMEN: Small amount of abdominopelvic ascites is present. There is no loculated fluid collection or free air. Small bowel loops are nondistended. There is scattered colonic diverticulosis, but no CT evidence of acute diverticulitis. Normal appendix cannot be adequately identified, but there is no pericecal inflammation. There is moderate distention of the stomach. There is abnormal thickened appearance to the antrum and distal body of the stomach. This does result in moderate narrowing of the lumen of the stomach in this area. This is suspicious for gastric malignancy. Several mildly prominent perigastric lymph nodes are also present. The kidneys, adrenal glands, spleen, pancreas, and liver have an unremarkable noncontrast CT appearance. There is moderate diffuse calcified aortic and arterial atherosclerosis. Osseous structures show no acute abnormalities. CT PELVIS: Small amount of free fluid is also present within the pelvis. There is no loculated fluid collection or free air. Urinary bladder is unopacified. No calculi are seen within the urinary bladder. No abnormal lymph nodes are seen. Osseous structures show no acute abnormalities. IMPRESSION: 1. Findings suspicious for malignant thickening of the distal body and antrum of the stomach. This may result in at least partial gastric outlet obstruction. Correlation with upper endoscopy is advised. 2. Moderate-sized likely loculated subpulmonic effusion in the right base. 3. Multiple mildly prominent perigastric and pericardial lymph nodes suspicious for metastatic disease. Correlation with CT PET is advised. 4. Mild abdominal pelvic ascites. 5. Colonic diverticulosis, but no CT evidence of acute diverticulitis. Dictated by: Dictated on workstation # [id number]
[2022-05-31] MEDS ORDERED: cefTRIAXone 1 GM PRE-MIX 50 ML IV ONE (14:45)
[2022-05-31] MEDS ORDERED: LIDOCAINE UROJET 2% GEL 10 ML PKG TOP ONE ×2 (14:45→16:00)
[2022-05-31 14:49] LABS: CLARITY,URINE CLOUDY; COLOR,URINE YELLOW; GLUCOSE, URINE (UA) NEGATIVE (NEGATIVE); KETONES,URINE TRACE (NEGATIVE); LEUKOCYTE ESTERASE ,URINE TRACE (NEGATIVE); NITRITE,URINE NEGATIVE (NEGATIVE); PROTEIN,URINE 1+ (NEGATIVE)
[2022-05-31 15:03] LABS: BACTERIA,URINE FEW /HPF; BILIRUBIN,URINE NEGATIVE (NEGATIVE); RBC,URINE RARE /HPF
[2022-05-31] MEDS: NS IV 1000 ML 1,000 ML IV SCH ×3 (15:13→23:25)
[2022-05-31] MEDS ORDERED: ACETAMINOPHEN 325 MG TABLET PO PRN (16:00)
[2022-05-31] MEDS ORDERED: diphenhydrAMINE 50 MG/ML INJ (BENADRYL) IVP PRN (16:00)
[2022-05-31] MEDS ORDERED: diphenhydrAMINE 25 MG TAB (BENADRYL) PO PRN (16:00)
[2022-05-31] MEDS ORDERED: morphine INJ 4 MG/ML 1 ML (VIAL/SYRINGE) IV PRN (16:00)
[2022-05-31] MEDS ORDERED: MILK OF MAGNESIA 400 MG/5 ML 30 ML UDC PO PRN (16:00)
[2022-05-31] MEDS ORDERED: CALCIUM CARBONATE 500 MG (TUMS) TAB.CHEW PO PRN (16:00)
[2022-05-31] MEDS ORDERED: ANTACID SUSP 30 ML UDC (MYLANTA) PO PRN (16:00)
[2022-05-31] MEDS ORDERED: ONDANSETRON 4 MG (ZOFRAN) ORAL DISSOLVE TAB PO PRN (16:00)
[2022-05-31] MEDS ORDERED: MELATONIN 3 MG TABLET PO PRN (16:00)
[2022-05-31] MEDS ORDERED: NS IV 500 ML 500 ML IV PRN (16:00)
[2022-05-31] MEDS ORDERED: BISACODYL 10 MG SUPP (DULCOLAX) PR PRN (16:00)
[2022-05-31] MEDS ORDERED: polyethylene glycoL POWDER 17 GM (MIRALAX) PACK PO PRN (16:00)
[2022-05-31] MEDS ORDERED: LACTULOSE SYRUP 10GM/15ML (ENULOSE) 30ML UDC PO PRN (16:00)
--- NOTE | 2022-05-31 16:12 | Consultation - Surgery ---
MUNIRA CULLEN 05/31/22 1612: History of Present Illness History of Present Illness Patient Consulted On(teresa/time) 05/31/22 16:02 Date Seen by Provider: May 31, 2022 Time Seen by Provider: 15:45 History of Present Illness 81yo female presented to the [facility] ED with CC of not eating very much and worsening N/V. She said she started eating less "several months" ago and her son was present bedside and he thought it had been over a year since she was unable to eat. Since October patient claims she has had a 35lb weight loss. She said one year ago she weighed 200lbs, and she now weighs 130lbs. She said she just does not have an appetite and she feels very weak, the weakness has been getting worse as she has eaten less. Additionally she has been endorsing worsening N/V over the past two weeks. Whenever she eats or drinks anything after "a couple hours" she starts to feel nausea and will sometimes have emesis. She describes it as dark green and maybe black. Prior to the past two weeks she would sometimes have emesis after eating but it has been getting worse. She denies epigastric and retrosternal chest pain unless it is right after she has vomited. Allergies and Home Medications Allergies Coded Allergies: ciprofloxacin (Verified Allergy, Unknown, 09/15/19) Patient Home Medication List Apixaban (Eliquis) 5 Mg Tablet, 5 MG PO BID, (Reported) Entered as Reported by: MANUEL MCKEON on 05/31/221649 Last Action: Held Carvedilol (Carvedilol) 6.25 Mg Tablet, 6.25 MG PO BID, (Reported) Entered as Reported by: MANUEL MCKEON on 05/31/221649 Last Action: Held Cephalexin (Keflex) 500 Mg Capsule, 500 MG PO TID Prescribed by: DINORAH HERNANDEZ MD on 09/15/19 0844 Cephalexin (Cephalexin) 500 Mg Tablet, 500 MG PO TID Prescribed by: JUANITO JENKINS MD on 05/28/22 1309 Furosemide (Furosemide) 40 Mg Tablet, 40 MG PO DAILY, (Reported) Entered as Reported by: MANUEL MCKEON on 05/31/221649 Last Action: Held Levothyroxine Sodium (Levothyroxine Sodium) 112 Mcg Tablet, 112 MCG PO DAILY, (Reported) Entered as Reported by: MANUEL MCKEON on 05/31/221649 Last Action: Continued Lisinopril (Lisinopril) 20 Mg Tablet, 20 MG PO DAILY, (Reported) Entered as Reported by: MANUEL MCKEON on 05/31/221649 Last Action: Held Ondansetron (Ondansetron Odt) 8 Mg Tab.rapdis, 8 MG PO Q6H Prescribed by: JUANITO JENKINS MD on 05/28/22 1309 Oxymetazoline HCl (Afrin) 15 Ml Mist, 15 ML NS BID PRN Prescribed by: DINORAH HERNANDEZ MD on 09/15/19 0844 Spironolactone (Spironolactone) 25 Mg Tablet, 12.5 MG PO DAILY, (Reported) Entered as Reported by: MANUEL MCKEON on 05/31/221649 Last Action: Held Past Tnpcejq-Teofuz-Kbyahx Hx Patient Social History Smoking Status: Former Smoker 2nd Hand Smoke Exposure: No Recent Hopitalizations: No Alcohol Use?: No Immunizations Up To Date Tetanus Booster (TDap): Less than 5yrs Seasonal Allergies Seasonal Allergies: No Surgeries History of Surgeries: Yes (carpal tunnel, removal of non-cancerous mass off left foot, multiple back) Surgeries: Eye Surgery (cataracts b/l), Gallbladder, Orthopedic Respiratory History of Respiratory Disorde: Yes Respiratory Disorders: COPD Cardiovascular History of Cardiac Disorders: Yes Cardiac Disorders: Atrial Fibrillation, Hypertension, Valvular Heart Disease Neurological History of Neurological Disord: No Genitourinary History of Genitourinary Disor: No (said she has had a couple UTI in her life, never passes a kidney stone) Gastrointestinal History of Gastrointestinal Di: Yes Gastrointestinal Disorders: Gastroesophageal Reflux, Diverticulosis Musculoskeletal History of Musculoskeletal Dis: Yes Musculoskeletal Disorders: Degenerate Disk Disease, Arthritis, Chronic Back Pain Endocrine History of Endocrine Disorders: No Endocrine Disorders: Hypothyroidsim HEENT History of HEENT Disorders: No HEENT Disorders: Cataract Cancer History of Cancer: No Psychosocial History of Psychiatric Problem: No Integumentary History of Skin or Integumenta: Yes (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) Blood Transfusions History of Blood Disorders: No Family Medical History Significant Family History: Heart Disease (mom and dad, unsure of specific ron gnosis), Hypertension (mom), Lung Disease (dad had emphysema), Other Conditions/Hx (denied FH of diabetes and cancer) Review of Systems-General Constitutional: No chills, No fever; weakness, weight loss (35lb weight loss since october, unintentional) EENTM: other (said her right ear was ringing very badly in the ER when she felt lightheaded); No blurred vision, No double vision, No throat pain Respiratory: No cough, No short of breath; wheezing Cardiovascular: No chest pain, No palpitations; vascular heart diseas Gastrointestinal: No abdominal pain, No constipation, No diarrhea, No dysphagia, No hematemesis; heartburn, loss of appetite (said she is hungry now but has had loss of appetite over past months); No melena; nausea (not currently but was given medication for it in ER), vomiting (last occurred this morning after eating breakfast) Genitourinary: No dysuria, No frequency, No hematuria; other (wren in place) Musculoskeletal: back pain (chronic), joint pain (knees b/l-chronic) Skin: No dryness, No hx of skin cancer, No rash; other (bruises easily) Psychiatric/Neurological: Denies Anxiety, Denies Depressed; Weakness Physical Exam-General Problems Physical Exam Vital Signs Vital Signs - First Documented 05/31/22 05/31/22 12:35 13:30 Temp 36.4 Pulse 117 Resp 20 B/P (MAP) 91/75 (80) Pulse Ox 94 O2 Delivery Nasal Cannula O2 Flow Rate 2.00 Capillary Refill : General Appearance: no apparent distress, other (appears very weak and tired) HEENT: PERRL/EOMI, other (left eye nystagmus) Neck: non-tender, supple Respiratory: no respiratory distress, decreased breath sounds (right lung at base), wheezing (expiration and inspiration) Cardiovascular: no murmur, irregularly irregular Peripheral Pulses: 2+ Dorsalis Pedis (R), 2+ Left Dors-Pedis (L), 2+ Radial Pulses (R), 2+ Radial Pulses (L) Gastrointestinal: normal bowel sounds, soft, tenderness (epigastric) Back: no CVA tenderness, no vertebral tenderness Extremities: non-tender, no pedal edema, no calf tenderness Neurologic/Psychiatric: alert, oriented x 3 Skin: cool, other (several bruises on arms, patient on blood thinner) Lymphatic: no adenopathy (cervical) Data Review Labs Laboratory Tests 05/31/22 12:42: White Blood Count 8.6, Red Blood Count 3.69L, Hemoglobin 11.4L, Hematocrit 36, Mean Corpuscular Volume 97, Mean Corpuscular Hemoglobin 31, Mean Corpuscular Hemoglobin Concent 32, Red Cell Distribution Width 14.7H, Platelet Count 292, Mean Platelet Volume 10.1, Immature Granulocyte % (Auto) 1, Neutrophils (%) (Auto) 71, Lymphocytes (%) (Auto) 13, Monocytes (%) (Auto) 12, Eosinophils (%) (Auto) 2, Basophils (%) (Auto) 1, Neutrophils # (Auto) 6.2, Lymphocytes # (Auto) 1.2, Monocytes # (Auto) 1.1H, Eosinophils # (Auto) 0.1, Basophils # (Auto) 0.1, Immature Granulocyte # (Auto) 0.1, Prothrombin Time 16.7H, INR Comment 1.3, Activated Partial Thromboplast Time 36H, Sodium Level 136, Potassium Level 3.1L, Chloride Level 88L, Carbon Dioxide Level 32, Anion Gap 16H, Blood Urea Nitrogen 22H, Creatinine 1.26, Estimat Glomerular Filtration Rate 42, BUN/Creatinine Ratio 17, Glucose Level 108H, Lactic Acid Level 2.48*H, Calcium Level 8.9, Corrected Calcium 9.0, Total Bilirubin 1.1H, Aspartate Amino Transf (AST/SGOT) 19, Alanine Aminotransferase (ALT/SGPT) 8, Alkaline Phosphatase 61, Total Protein 6.6, Albumin 3.9 05/31/22 14:37: Urine Color YELLOW, Urine Clarity CLOUDY, Urine pH 6.0, Urine Specific [place] 1.020, Urine Protein 1+H, Urine Glucose (UA) NEGATIVE, Urine Ketones TRACEH, Urine Nitrite NEGATIVE, Urine Bilirubin NEGATIVE, Urine Urobilinogen 0.2, Urine Leukocyte Esterase TRACEH, Urine RBC (Auto) NEGATIVE, Urine RBC RARE, Urine WBC 5-10H, Urine Squamous Epithelial Cells 2-5, Urine Crystals NONE, Urine Bacteria FEWH, Urine Casts NONE, Urine Mucus NEGATIVE, Urine Culture Indicated CULTURE PENDING 05/31/22 15:16: Lactic Acid Level 1.52 Assessment/Plan Assessment/Plan Assessment/Plan Possible gastric cancer Weight loss N/V Anemia Hypokalemia UTI Plan to offer patient to do an EGD. Would wait until Friday, last took eliquis yesterday. She claimed she has not experienced nausea since being given zofran in ED, will continue zofran PRN. Monitor hgb with AM labs. Urine culture ordered. Contine on oral KCl for potassium replacement. Clinical Quality Measures DVT/VTE Risk/Contraindication: Contraindications-Pharm: Other *list below* Other: gastric cancer needs EGD JESICA RIBERA DO 05/31/22 1751: History of Present Illness History of Present Illness Time Seen by Provider: 17:37 History of Present Illness Surgery asked to consult regarding weight loss, anemia, gastric/antral thickening. HPI per ED: Patient is an 81-year-old female who presents to the emergency department with worsening generalized weakness. She was in the emergency department at [facility] a couple of days ago with nausea vomiting and weakness. She was diagnosed with a urinary tract infection. She was prescribed some Kef caroline. She states she has been taking this medication but she has continued to feel worse. She does endorse a moderate amount of abdominal discomfort. She states every time she eats she vomits. She had told the provider on 28 May that she had had an approximate 50 pound weight loss over the last year, unintentionally. She has talked to her primary care provider about this and is scheduled to see Dr. Ribera for EGD. The patient states that she is so weak now that she has trouble navigating the 4 or 5 steps into her kitchen at home. She was driving very well up until about 2 weeks ago. She denies black or bloody stools. She denies blood in her emesis. No fevers or chills. No shortness of breath or cough. She is normally seen at [facility] in [place] for her atrial fibrillation and anticoagulation management. She has had previous thoracentesis for fluid accumulating in the right lung. She states this was evaluated for cancer and was negative. She believes this was maybe a year ago. When I spoke to pt she stated that she has not been able to eat as much as normal and "it's getting less and less". She also reports losing at least 70 pounds. She knows about her pleural effusion, first started when Covid started; was drained once, "no cancer". She states her Thoracic surgeon released her and told her it's not getting worse and she is too old for surgery. Allergies and Home Medications Allergies Coded Allergies: ciprofloxacin (Verified Allergy, Unknown, 09/15/19) Patient Home Medication List Home Medication List Reviewed: Yes Apixaban (Eliquis) 5 Mg Tablet, 5 MG PO BID, (Reported) Entered as Reported by: MANUEL MCKEON on 05/31/221649 Last Action: Held Carvedilol (Carvedilol) 6.25 Mg Tablet, 6.25 MG PO BID, (Reported) Entered as Reported by: MANUEL MCKEON on 05/31/221649 Last Action: Held Cephalexin (Keflex) 500 Mg Capsule, 500 MG PO TID Prescribed by: DINORAH HERNANDEZ MD on 09/15/19 0844 Cephalexin (Cephalexin) 500 Mg Tablet, 500 MG PO TID Prescribed by: JUANITO JENKINS MD on 05/28/22 1309 Furosemide (Furosemide) 40 Mg Tablet, 40 MG PO DAILY, (Reported) Entered as Reported by: MANUEL MCKEON on 05/31/221649 Last Action: Held Levothyroxine Sodium (Levothyroxine Sodium) 112 Mcg Tablet, 112 MCG PO DAILY, (Reported) Entered as Reported by: MANUEL MCKEON on 05/31/221649 Last Action: Continued Lisinopril (Lisinopril) 20 Mg Tablet, 20 MG PO DAILY, (Reported) Entered as Reported by: MANUEL MCKEON on 05/31/221649 Last Action: Held Ondansetron (Ondansetron Odt) 8 Mg Tab.rapdis, 8 MG PO Q6H Prescribed by: JUANITO JENKINS MD on 05/28/22 1309 Oxymetazoline HCl (Afrin) 15 Ml Mist, 15 ML NS BID PRN Prescribed by: DINORAH HERNANDEZ MD on 09/15/19 0844 Spironolactone (Spironolactone) 25 Mg Tablet, 12.5 MG PO DAILY, (Reported) Entered as Reported by: MANUEL MCKEON on 05/31/221649 Last Action: Held Past Rsleqyb-Eulklv-Ijdrrk Hx Patient Social History Smoking Status: Former Smoker (smoked a few cigarettes when she was younger) Alcohol Use?: No Surgeries History of Surgeries: Yes (carpal tunnel, removal of non-cancerous mass off left foot, multiple back) Surgeries: Eye Surgery (cataracts b/l), Gallbladder, Orthopedic Respiratory History of Respiratory Disorde: Yes (pleural effusion) Respiratory Disorders: COPD Cardiovascular History of Cardiac Disorders: Yes Cardiac Disorders: Atrial Fibrillation, Hypertension, Valvular Heart Disease Neurological History of Neurological Disord: No (but has spinal cord stimulator) Genitourinary History of Genitourinary Disor: No (said she has had a couple UTI in her life, never passes a kidney stone) Gastrointestinal History of Gastrointestinal Di: Yes Gastrointestinal Disorders: Gastroesophageal Reflux, Diverticulosis, Gall Bladder Disease Musculoskeletal History of Musculoskeletal Dis: Yes Musculoskeletal Disorders: Degenerate Disk Disease, Arthritis, Chronic Back Pain Endocrine History of Endocrine Disorders: Yes Endocrine Disorders: Hypothyroidsim HEENT History of HEENT Disorders: Yes HEENT Disorders: Cataract Hearing Impairment: Denies Cancer History of Cancer: No Psychosocial History of Psychiatric Problem: No Integumentary History of Skin or Integumenta: Yes (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) Family Medical History Significant Family History: Heart Disease (mom and dad, unsure of specific diagnosis), Hypertension (mom), Lung Disease (dad had emphysema), Other Conditions/Hx (denied FH of diabetes and cancer) Review of Systems-General Constitutional: No chills, No fever; weakness, weight loss (35lb weight loss since october, unintentional) EENTM: other (said her right ear was ringing very badly in the ER when she felt lightheaded); No blurred vision, No double vision, No throat pain Respiratory: No cough, No short of breath; wheezing Cardiovascular: No chest pain; palpitations (pt has afib, doesn't really feel it), vascular heart diseas Gastrointestinal: No abdominal pain, No constipation, No diarrhea, No dysphagia, No hematemesis; heartburn, loss of appetite (said she is hungry now but has had loss of appetite over past months); No melena; nausea (not currently but was given medication for it in ER), vomiting (last occurred this morning after eating breakfast) Genitourinary: No dysuria, No frequency, No hematuria; other (wren in place) Musculoskeletal: back pain (chronic), joint pain (knees b/l-chronic) Skin: No dryness, No hx of skin cancer, No rash; other (bruises easily) Psychiatric/Neurological: Denies Anxiety, Denies Depressed; Weakness Physical Exam-General Problems Physical Exam General Appearance: no apparent distress, other (appears very weak and tired) Eyes: Bilateral Eye PERRL, Bilateral Eye EOMI HEENT: pharynx normal; No scleral icterus (R), No scleral icterus (L); other (left eye nystagmus) Neck: non-tender, supple Respiratory: no respiratory distress, no accessory muscle use, decreased breath sounds (right lung at base), wheezing (expiration and inspiration), other (dullness to percussion right lung) Cardiovascular: no murmur, irregularly irregular Gastrointestinal: soft, tenderness (epigastric); No hernia Back: no CVA tenderness, no vertebral tenderness Extremities: non-tender, no pedal edema, no calf tenderness Neurologic/Psychiatric: alert, oriented x 3 Skin: cool, other (several bruises on arms, patient on blood thinner) Lymphatic: no adenopathy (neck, axillary or groin) Data Review Radiology Date of Exam:05/31/22 CT ABDOMEN/PELVIS WO PROCEDURE: CT abdomen and pelvis without contrast. TECHNIQUE: Multiple contiguous axial images were obtained through the abdomen and pelvis without the use of intravenous contrast. Auto Exposure Controls were utilized during the CT exam to meet ALARA standards for radiation dose reduction. INDICATION: Vomiting. Weakness. Nausea. COMPARISON: None FINDINGS: Included portions of the lung bases show large likely loculated subpulmonic pleural effusion in the right base. There is associated partial consolidation of the right lower lobe. Note is also made of mild cardiomegaly. Prominent pericardial lymph node is identified and measures 1 cm in diameter. There is also moderate calcified coronary atherosclerosis. CT ABDOMEN: Small amount of abdominopelvic ascites is present. There is no loculated fluid collection or free air. Small bowel loops are nondistended. There is scattered colonic diverticulosis, but no CT evidence of acute diverticulitis. Normal appendix cannot be adequately identified, but there is no pericecal inflammation. There is moderate distention of the stomach. There is abnormal thickened appearance to the antrum and distal body of the stomach. This does result in moderate narrowing of the lumen of the stomach in this area. This is suspicious for gastric malignancy. Several mildly prominent perigastric lymph nodes are also present. The kidneys, adrenal glands, spleen, pancreas, and liver have an unremarkable noncontrast CT appearance. There is moderate diffuse calcified aortic and arterial atherosclerosis. Osseous structures show no acute abnormalities. CT PELVIS: Small amount of free fluid is also present within the pelvis. There is no loculated fluid collection or free air. Urinary bladder is unopacified. No calculi are seen within the urinary bladder. No abnormal lymph nodes are seen. Osseous structures show no acute abnormalities. IMPRESSION: 1. Findings suspicious for malignant thickening of the distal body and antrum of the stomach. This may result in at least partial gastric outlet obstruction. Correlation with upper endoscopy is advised. 2. Moderate-sized likely loculated subpulmonic effusion in the right base. 3. Multiple mildly prominent perigastric and pericardial lymph nodes suspicious for metastatic disease. Correlation with CT PET is advised. 4. Mild abdominal pelvic ascites. 5. Colonic diverticulosis, but no CT evidence of acute diverticulitis. Dictated by: Dictated on workstation # [id number] Dict: 05/31/22 1355 Trans: 05/31/22 1650 [facility] [id number] Interpreted by: NITO QUIROGA MD Electronically signed by: NITO QUIROGA MD 05/31/22 6263 Assessment/Plan Assessment/Plan Assessment/Plan Gastric/Antral thickening Pleural Effusion Ascites Weight loss, N/V, Anemia Hypokalemia UTI Afib, HTN Plan to offer patient to do an EGD; will wait until Friday to try and let eliquis dissipate. She claimed she has not experienced nausea since being given zofran in ED, will continue zofran PRN. Monitor hgb with AM labs. Urine culture ordered. Contine on oral KCl for potassium replacement. Nothing to do for pleural effusion and not sure significance of ascites. Pt is getting K+ supplementation and ABX for UTI. HTN will be started on IV meds. Will order CEA, [id number] and AFP Supervisory-Addendum Brief Verification & Attestation Participated in pt care: history, MDM, physical Personally performed: exam, history, MDM, supervision of care Care discussed with: Medical Student Procedures: n/a Verification and Attestation of Medical Student E/M Service A medical student performed and documented this service. I then reviewed and verified all information documented by the medical student and made modifications to such information, when appropriate. I personally performed a physical exam, medical decision making and then discussed any differences be tween the notes and made revisions as necessary to create one note. Jesica Ribera , 05/31/22 , 18:01 MUNIRA CULLEN May 31, 2022 16:12 JESICA RIBERA DO May 31, 2022 17:51
[2022-05-31 16:18] VITALS: BP 91/74
[2022-05-31] MEDS ORDERED: RT-ALBUTEROL SULF 2.5 MG/3 ML PRE-MIX VIAL INH PRN (16:30)
[2022-05-31] MEDS: dilTIAZem DRIP PRE-MIX 125 ML IV SCH (16:42)
[2022-05-31] MEDS: NOREPINEPHRINE 8 MG/250 ML 250 ML IV SCH (16:43)
[2022-05-31] MEDS ORDERED: LISI20TA26 PO (16:50)
[2022-05-31] MEDS ORDERED: SPIR25TA5 PO (16:50)
[2022-05-31] MEDS ORDERED: CARV6.252 PO (16:50)
[2022-05-31] MEDS ORDERED: LEVO112T55 PO (16:50)
[2022-05-31] MEDS ORDERED: APIX5TAB PO (16:50)
[2022-05-31] MEDS ORDERED: FURO40TA4 PO (16:50)
[2022-05-31] MEDS ORDERED: cefTRIAXone 1 GM PRE-MIX 50 ML IV SCH (17:00)
--- NOTE | 2022-05-31 17:07 | Tele-ICU Consult ---
History of Present Illness History of Present Illness Date Seen by Provider: May 31, 2022 Time Seen by Provider: 17:06 Date of Admission (Tele-ICU Physician , consultation) Available chart/ vitals / labs / Images reviewed H&P is from ER notes Patient's information available about PMH, Shx, Fhx allergy reviewed inEMR. ROS as per chart and RN report Now in ICU, hemodynamically stable Video assessment done using teleICU camera, rest of exam as per RN Discussed with RN. Consultants: Hospital course: A/P Hypotension -most likely volume depletion , no evidence of GIB , possivle additional sepsis component - volume resuscitation - received 1800, cont volume IVF , lactate normalised , HR and BP WNL A fib RVR in ER - rate control now ( metoptolol SEAM HAMMERER - on AC with eliquis SEAM HAMMERER - cards consulted N/V , weight loss - CT with thickening of the distal body and antrum of the stomach with suspected least partial gastric outlet obstruction and enlarged LNs - Sx consulted for scope - suspected CA UTI , + Citrobacter on 05/23 - cont ABX - stated on rocephin - sensitive - will cont RIGHT loculated subpulmonic effusion - consider thora for Dx purpose 9 no path report on [employer] - as per note - [patient had thora on Right in past ) Lines : , (Central Line Necessity Reviewed) Baca: OG: Nutrition: Analgesia: Anxiety/ delirium VTE Prophylaxis: scd , resume full AC if no bleed - when OK with SX planning Stress Ulcer Prophylaxis: PPi Glycemic Control: Plans in collaboration with bedside consultants and IM MDs. Discussed with RN to reach out if any questions or concerns A total of31 minutes of critical care time was devoted to this patient today, required to treat and/or prevent further deterioration of critical care condition ( as above ) . Allergies and Home Medications Allergies Coded Allergies: ciprofloxacin (Verified Allergy, Unknown, 09/15/19) Home Medications Apixaban 5 Mg Tablet, 5 MG PO BID, (Reported) Carvedilol 6.25 Mg Tablet, 6.25 MG PO BID, (Reported) Cephalexin 500 Mg Capsule, 500 MG PO TID Prescribed by: DINORAH HERNANDEZ MD on 09/15/19 0844 Cephalexin 500 Mg Tablet, 500 MG PO TID Prescribed by: JUANITO JENKINS MD on 05/28/22 1309 Furosemide 40 Mg Tablet, 40 MG PO DAILY, (Reported) Levothyroxine Sodium 112 Mcg Tablet, 112 MCG PO DAILY, (Reported) Lisinopril 20 Mg Tablet, 20 MG PO DAILY, (Reported) Ondansetron 8 Mg Tab.rapdis, 8 MG PO Q6H Prescribed by: JUANITO JENKINS MD on 05/28/22 1309 Oxymetazoline HCl 15 Ml Mist, 15 ML NS BID PRN Prescribed by: DINORAH HERNANDEZ MD on 09/15/19 0844 Spironolactone 25 Mg Tablet, 12.5 MG PO DAILY, (Reported) Past Medical/Social/Family Hx Patient Social History Tobacco Use?: No Tobacco type used: Cigarettes Smoking Status: Former Smoker Use of E-Cig and/or Vaping dev: No Substance use?: No Alcohol Use?: No Pt stated abuse/neglect: No Immunizations Up To Date Influenza Vaccine Up-to-Date: No; Not Current First/Initial COVID19 Vaccinat: Yes Second COVID19 Vaccination Raymond: Yes Current Status status: No Advance Directives: Yes Advance Directive Location: Family to bring in copy Communicates: Verbally Primary Language: Jamaican Preferred Spoken Language: Jamaican Is interpretation needed?: No Sensory deficits: Vision impairment Implanted or Applied Medical D: None Review of Systems Constitutional: see HPI Focused Exam Sepsis Stage: Sepsis Lactate Level 05/31/22 12:42: Lactic Acid Level 2.48*H 05/31/22 15:16: Lactic Acid Level 1.52 Height, Weight, BMI Height: 5'6.00" Weight: 180lbs. oz. 81.683007nz; 25.39 BMI Method:Stated Lactic Acid Level Laboratory Tests Test 05/31/22 15:16 Lactic Acid Level 1.52 MMOL/L (0.50-2.00) Exam Exam Patient acknowledged, consented, and participated in this virtual visit which was conducted using real time audio/video Vital Signs Date Time Temp Pulse Resp B/P (MAP) Pulse Ox O2 Delivery O2 Flow Rate FiO2 05/31/22 17:00 79 13 95/61 (72) 99 Nasal Cannula 2.00 05/31/22 16:43 78 109/65 05/31/22 16:42 78 109/65 05/31/22 16:19 78 14 109/65 (80) 98 Nasal Cannula 2.00 05/31/22 16:18 36.4 117 94 28 05/31/22 15:37 82 16 80/45 94 Nasal Cannula 2.00 05/31/22 13:30 96 Nasal Cannula 2.00 05/31/22 12:35 36.4 117 20 91/75 (80) 94 Height & Weight Height: 5'6.00" Weight: 180lbs. oz. 81.822572pw; 25.39 BMI Method:Stated General Appearance: No Apparent Distress, Chronically ill, Thin HEENT: PERRL/EOMI Neck: Normal Inspection Respiratory: Lungs Clear, Normal Breath Sounds, No Accessory Muscle Use, No Respiratory Distress Cardiovascular: Irregularly Irregular, Tachycardia Extremity: Normal Capillary Refill, Normal Inspection, Normal Range of Motion, Non Tender, No Calf Tenderness, No Pedal Edema Neurologic/Psychiatric: Alert, Oriented x3, No Motor/Sensory Deficits, Depressed Affect Skin: Warm/Dry, Pallor Results Lab Laboratory Tests 05/31/22 12:42 Assessment/Plan Assessment/Plan 1 ORALIA SHIRLEY MD May 31, 2022 17:07
[2022-05-31] MEDS: ONDANSETRON 4 MG/2 ML (SDV) Z0FRAN IV PRN (17:36)
--- NOTE | 2022-05-31 17:39 | History & Physical-Hospitalist ---
History of Present Illness HPI/Chief Complaint CC: Hypotension from hypovolemic shock HPI: This is an 81yoWF who presented to the ER with weakness and found to have h ypotension from dehydration. She recently was placed on abx for UTI but she had no signs of sepsis. Abdominal pain prompted CT scan in ER and was found to have findings consistent with gastric outlet mass with mets so Dr Mitchell will have OAC held and perform scope with biopsies to confirm suspicion of cancer. Source: patient, RN/MD Exam Limitations: clinical condition Date Seen 05/31/22 Time Seen by a Provider: 18:15 Attending Physician Mykel Brasher MD PCP Admitting Physician: Stella Manning DO Attending Physician: Stella Manning DO Referring Physician Date of Admission May 31, 2022 at 14:37 Home Medications & Allergies Home Medications Reviewed patient Home Medication Reconciliation performed by pharmacy medication reconciliations marine electronics technician and/or nursing. Patients Allergies have been reviewed. Allergies Allergies Coded Allergies ciprofloxacin (Verified Allergy, Unknown, 09/15/19) Past Yrfmoam-Uorigb-Tbtbnn Hx Patient Social History Marrital Status: single Employed/Student: retired Tobacco Use?: No Tobacco type used: Cigarettes Smoking Status: Former Smoker Use of E-Cig and/or Vaping dev: No Substance use?: No Alcohol Use?: No Pt feels they are or have been: No Immunizations Up To Date First/Initial COVID19 Vaccinat: Yes Second COVID19 Vaccination Raymond: Yes Seasonal Allergies Seasonal Allergies: No Current Status status: No Advance Directives: Yes Advance Directive Location: Family to bring in copy Communicates: Verbally Primary Language: Luxembourgish Preferred Spoken Language: Luxembourgish Is interpretation needed?: No Sensory deficits: Vision impairment Implanted or Applied Medical D: None Past Medical History Surgeries: Eye Surgery (cataracts b/l), Gallbladder, Orthopedic COPD Atrial Fibrillation, Hypertension, Valvular Heart Disease Gastroesophageal Reflux, Diverticulosis Degenerate Disk Disease, Arthritis, Chronic Back Pain Hypothyroidsim Cataract Blood Disorders: No Family Medical History Heart Disease (mom and dad, unsure of specific diagnosis), Hypertension (mom), Lung Disease (dad had emphysema), Other Conditions/Hx (denied FH of diabetes and cancer) Review of Systems Constitutional: see HPI, dizziness, weakness EENTM: no symptoms reported Respiratory: dyspnea on exertion Cardiovascular: no symptoms reported Gastrointestinal: abdominal pain, loss of appetite, nausea Genitourinary: no symptoms reported Musculoskeletal: no symptoms reported Skin: no symptoms reported Psychiatric/Neurological: No Symptoms Reported All Other Systems Reviewed Negative Unless Noted: Yes Physical Exam Physical Exam Vital Signs Vital Signs - First Documented 05/31/22 05/31/22 05/31/22 12:35 13:30 16:18 Temp 36.4 Pulse 117 Resp 20 B/P (MAP) 91/75 (80) Pulse Ox 94 O2 Delivery Nasal Cannula O2 Flow Rate 2.00 FiO2 28 Capillary Refill : Height, Weight, BMI Height: 5'6.00" Weight: 180lbs. oz. 81.670267vw; 25.39 BMI Method:Stated General Appearance: No Apparent Distress, Chronically ill, Thin Eyes: Right Eye Normal Inspection, Right Eye PERRL HEENT: PERRL/EOMI, Normal ENT Inspection, Pharynx Normal, Moist Mucous Membranes Neck: Full Range of Motion, Normal Inspection, Non Tender Respiratory: Chest Non Tender, Lungs Clear, Normal Breath Sounds, No Accessory Muscle Use, No Respiratory Distress Cardiovascular: Regular Rate, Rhythm, No Edema, No Gallop, No JVD, No Murmur, Normal Peripheral Pulses Gastrointestinal: Normal Bowel Sounds, No Organomegaly, No Pulsatile Mass, Non Tender, Soft Back: Normal Inspection, No CVA Tenderness, No Vertebral Tenderness Extremity: Normal Capillary Refill, Normal Inspection, Normal Range of Motion, Non Tender, No Calf Tenderness, No Pedal Edema Neurologic/Psychiatric: Alert, Oriented x3, No Motor/Sensory Deficits, Normal Mood/Affect Skin: Normal Color, Warm/Dry Lymphatic: No Adenopathy Results Results/Procedures Labs Laboratory Tests 05/31/22 12:42 06/01/22 03:42 Patient resulted labs reviewed. Assessment/Plan Admission Diagnosis Assessment: Shock Hypotension without evidence of sepsis Dehydration Gastric outlet mass with mets 100# weight loss in past 6 months Anemia AF OAC HLP UTI Plan: ICU IVF Cardiology Dr Mitchell Admission Status: Inpatient Order (span 2 midnights) Reason for Inpatient Admission: shock Clinical Quality Measures DVT/VTE Risk/Contraindication: Contraindications-Pharm: Other *list below* Other: gastric cancer needs EGD STELLA MANNING DO May 31, 2022 17:39
[2022-05-31] MEDS: RT-ALBUTEROL SULF 2.5 MG/3 ML PRE-MIX VIAL INH SCH ×2 (18:54→22:49)
[2022-05-31] MEDS ORDERED: MAGNESIUM 1 GM/100 ML IVPB 400 ML IV ONE (21:23)
[2022-05-31] MEDS ORDERED: POTASSIUM CL 10MEQ/50ML IVPB 200 ML IV ONE (21:23)
[2022-05-31] MEDS: DOCUSATE SODIUM 100 MG (COLACE) CAP PO SCH (21:37)
[2022-05-31] MEDS: SENNOSIDES 8.6 MG (SENOKOT) TAB PO SCH (21:37)
[2022-05-31] MEDS: MAGNESIUM 1 GM/100 ML IVPB 100 ML IV SCH ×4 (21:37→23:27)
[2022-05-31] MEDS: POTASSIUM CL 10MEQ/50ML IVPB 50 ML IV SCH ×2 (21:38→23:10)
[2022-06-01] MEDS: NS IV 1000 ML 1,000 ML IV SCH ×4 (01:09→17:17)
[2022-06-01] MEDS ORDERED: NS IV 500 ML 500 ML IV ONE (01:15)
[2022-06-01] MEDS: ONDANSETRON 4 MG/2 ML (SDV) Z0FRAN IV PRN ×2 (02:12→14:33)
[2022-06-01] MEDS: RT-ALBUTEROL SULF 2.5 MG/3 ML PRE-MIX VIAL INH SCH ×6 (02:40→22:58)
[2022-06-01 04:12] LABS: BASOPHILS % (AUTO) 1 % (0-10); EOSINOPHILS # (AUTO) 0.2 10^3/uL (0.0-0.3); EOSINOPHILS % (AUTO) 3 % (0-10); HEMATOCRIT 32 % (35-52); HEMOGLOBIN 9.9 g/dL (11.5-16.0); LYMPHOCYTES # (AUTO) 0.7 10^3/uL (1.0-4.0); LYMPHOCYTES % (AUTO) 12 % (12-44); MEAN CORPUSCULAR HEMOGLOBIN 31 pg (25-34); MEAN CORPUSCULAR HGB CONC 31 g/dL (32-36); MEAN CORPUSCULAR VOLUME 99 fL (80-99); MONOCYTES # (AUTO) 0.7 10^3/uL (0.0-1.0); MONOCYTES % (AUTO) 12 % (0-12); NEUTROPHILS # (AUTO) 4.1 10^3/uL (1.8-7.8); NEUTROPHILS % (AUTO) 71 % (42-75); PLATELET COUNT 195 10^3/uL (130-400); WHITE BLOOD COUNT 5.8 10^3/uL (4.3-11.0)
[2022-06-01 04:36] LABS: ALBUMIN 3.1 GM/DL (3.2-4.5); BILIRUBIN,TOTAL 0.6 MG/DL (0.1-1.0); CALCIUM 7.7 MG/DL (8.5-10.1); CREATININE SERUM 0.91 MG/DL (0.60-1.30); MAGNESIUM 2.3 MG/DL (1.6-2.4); PHOSPHORUS 2.2 MG/DL (2.3-4.7); POTASSIUM 3.1 MMOL/L (3.6-5.0); TOTAL PROTEIN 5.3 GM/DL (6.4-8.2)
[2022-06-01] MEDS: MAGNESIUM 1 GM/100 ML IVPB 100 ML IV SCH (05:20)
[2022-06-01] MEDS: KCL 20 MEQ TAB (K-DUR) PO SCH (05:20)
[2022-06-01] MEDS: POTASSIUM CL 10MEQ/50ML IVPB 50 ML IV SCH ×4 (05:29→07:44)
[2022-06-01] MEDS: LEVOTHYROXINE 112 MCG (LEVOTHROID) TAB PO SCH (05:35)
--- NOTE | 2022-06-01 06:27 | Progress Note - Hospitalist ---
Subjective HPI/CC On Admission Date Seen by Provider: Jun 01, 2022 Time Seen by Provider: 10:00 CC: Hypotension from hypovolemic shock HPI: This is an 81yoWF who presented to the ER with weakness and found to have hypotension from dehydration. She recently was placed on abx for UTI but she had no signs of sepsis. Abdominal pain prompted CT scan in ER and was found to have findings consistent with gastric outlet mass with mets so Dr Mitchell will have OAC held and perform scope with biopsies to confirm suspicion of cancer. Subjective/Events-last exam No major events BP still low Dr Mitchell will perform EGD tomorrow Presumed cancer per CT scan Son at bedside Review of Systems General: Fatigue, Malaise Focused Exam Lactate Level 05/31/22 12:42: Lactic Acid Level 2.48*H 05/31/22 15:16: Lactic Acid Level 1.52 Objective Exam Vital Signs Vital Signs Date Time Temp Pulse Resp B/P (MAP) Pulse Ox O2 Delivery O2 Flow Rate FiO2 06/01/22 14:00 91 21 108/57 (74) 95 Nasal Cannula 1.00 06/01/22 04:04 36.8 05/31/22 16:18 28 Capillary Refill : Less Than 3 Seconds General Appearance: No Apparent Distress, WD/WN, Chronically ill, Thin Respiratory: Lungs Clear, Normal Breath Sounds, Decreased Breath Sounds Cardiovascular: Regular Rate, Rhythm Neurologic/Psychiatric: Alert, Oriented x3, Depressed Affect Results/Procedures Lab Laboratory Tests 06/01/22 03:42 Patient resulted labs reviewed. Assessment/Plan Assessment and Plan Assess & Plan/Chief Complaint Assessment: Shock Hypotension without evidence of sepsis Dehydration Gastric outlet mass with mets 100# weight loss in past 6 months Anemia AF OAC HLP UTI Plan: ICU IVF Cardiology Dr Mitchell Clinical Quality Measures DVT/VTE Risk/Contraindication: Contraindications-Pharm: Other *list below* Other: gastric cancer needs EGD CASANDRA GUNN DO Jun 01, 2022 06:27
[2022-06-01] MEDS: PANTOPRAZOLE 40 MG (PROTONIX) VIAL IV SCH (07:45)
--- NOTE | 2022-06-01 07:56 | Diagnostic Imaging Report ---
Hypovolemic shock EXAMINATION: Chest 06/01/2022 COMPARISON: 05/31/2022. FINDINGS: There is mild cardiomegaly with pulmonary vascular congestion. There is a moderate right pleural effusion similar to previous imaging. There is likely underlying atelectasis or infiltrate. There are findings of mild edema throughout both lungs. No pneumothorax. There is a nodular density in the left upper lung. Follow-up recommended. IMPRESSION: 1. Fairly stable appearance of the chest with a density in the left upper lung noted. Follow-up recommended. Dictated by: Dictated on workstation # [id number]
[2022-06-01] MEDS: DOCUSATE SODIUM 100 MG (COLACE) CAP PO SCH ×2 (08:10→20:40)
[2022-06-01] MEDS: SENNOSIDES 8.6 MG (SENOKOT) TAB PO SCH ×2 (08:11→20:40)
[2022-06-01] MEDS ORDERED: NS IV 1000 ML 1,000 ML IV SCH (09:00)
--- NOTE | 2022-06-01 09:14 | Tele-ICU Progress Note ---
Subjective Date Seen by a Provider: Jun 01, 2022 Time Seen by a Provider: 09:09 Subjective/Events-last exam (Tele-ICU Physician , consultation) Available chart/ vitals / labs / Images reviewed H&P is from ER notes Patient's information available about PMH, allergy reviewed in EMR. ROS as per chart and RN report Video assessment done using teleICU camera, rest of exam as per RN Discussed with RN. Patient today has a moderate emesis since last night about 300 cc. Denies any abdominal pain. No fever present. She is admitted with generalized weakness, loss of weight. CT of the abdomen done showed possible gastric tumor with a gastric outlet obstruction. She was on oral anticoagulant therapy which is on hold and EGD is tentatively planned Blood pressure is on low side. Review of Systems ROS PER RN Sepsis Event Evaluation Height, Weight, BMI Height: 5'6.00" Weight: 180lbs. oz. 81.564386vd; 27.42 BMI Method:Stated Focused Exam Lactate Level 05/31/22 12:42: Lactic Acid Level 2.48*H 05/31/22 15:16: Lactic Acid Level 1.52 Exam Exam Patient acknowledged, consented, and participated in this virtual visit which was conducted using real time audio/video Vital Signs Date Time Temp Pulse Resp B/P (MAP) Pulse Ox O2 Delivery O2 Flow Rate FiO2 06/01/22 08:00 99 Nasal Cannula 1.00 06/01/22 08:00 98 12 91/56 (68) 100 Nasal Cannula 1.00 06/01/22 07:00 71 18 95/47 (63) 100 Nasal Cannula 1.00 06/01/22 07:00 86 06/01/22 06:59 100 Nasal Cannula 2.00 06/01/22 05:00 69 18 86/49 (61) 100 Nasal Cannula 2.00 06/01/22 04:20 99 Nasal Cannula 2.00 06/01/22 04:04 36.8 Nasal Cannula 2.00 06/01/22 04:00 82 16 94/61 (72) 100 Nasal Cannula 2.00 06/01/22 03:00 75 18 92/53 (66) 100 Nasal Cannula 2.00 06/01/22 02:00 79 17 101/65 (77) 100 Nasal Cannula 2.00 06/01/22 01:00 80 06/01/22 01:00 70 17 89/49 (62) 100 Nasal Cannula 2.00 06/01/22 00:33 97 Nasal Cannula 2.00 06/01/22 00:00 81 14 79/53 (62) 92 Nasal Cannula 2.00 05/31/22 23:00 36.6 Nasal Cannula 2.00 05/31/22 23:00 76 18 80/46 (57) 100 Nasal Cannula 2.00 05/31/22 22:50 96 Nasal Cannula 2.00 05/31/22 22:00 81 9 93/40 (57) 100 Nasal Cannula 2.00 05/31/22 21:06 79 18 99/54 (69) 100 Nasal Cannula 2.00 05/31/22 20:00 97 Nasal Cannula 2.00 05/31/22 20:00 82 16 112/57 (75) 100 Nasal Cannula 2.00 05/31/22 20:00 36.4 Nasal Cannula 2.00 05/31/22 19:00 79 9 91/60 (70) 100 Nasal Cannula 2.00 05/31/22 19:00 80 05/31/22 18:57 99 Nasal Cannula 2.00 05/31/22 18:00 80 13 105/74 (84) 100 Nasal Cannula 2.00 05/31/22 17:00 79 13 95/61 (72) 99 Nasal Cannula 2.00 05/31/22 16:43 78 109/65 05/31/22 16:42 78 109/65 05/31/22 16:20 99 Nasal Cannula 2.00 05/31/22 16:19 78 14 109/65 (80) 98 Nasal Cannula 2.00 05/31/22 16:18 36.4 117 94 28 05/31/22 16:10 88 05/31/22 15:37 82 16 80/45 94 Nasal Cannula 2.00 05/31/22 13:30 96 Nasal Cannula 2.00 05/31/22 12:35 36.4 117 20 91/75 (80) 94 I & O 06/01/22 07:00 Intake Total 4960 ml Output Total 925 ml Balance 4035 ml Height & Weight Height: 5'6.00" Weight: 180lbs. oz. 81.502396od; 27.42 BMI Method:Stated General Appearance: No Apparent Distress, Chronically ill, Thin HEENT: PERRL/EOMI, Normal ENT Inspection, Pharynx Normal, Moist Mucous Membranes Neck: Full Range of Motion, Normal Inspection, Non Tender Respiratory: Chest Non Tender, Lungs Clear, Normal Breath Sounds, No Accessory Muscle Use, No Respiratory Distress Cardiovascular: Regular Rate, Rhythm, No Edema, No Gallop, No JVD, No Murmur, Normal Peripheral Pulses Capillary Refill: Less Than 3 Seconds Peripheral Pulses: 2+ Dorsalis Pedis (R), 2+ Left Dors-Pedis (L), 2+ Radial Pulses (R), 2+ Radial Pulses (L) Gastrointestinal: soft, tenderness (epigastric); No hernia Extremity: Normal Capillary Refill, Normal Inspection, Normal Range of Motion, Non Tender, No Calf Tenderness, No Pedal Edema Neurologic/Psychiatric: Alert, Oriented x3, No Motor/Sensory Deficits, Normal Mood/Affect Skin: Normal Color, Warm/Dry Lymphatic: No Adenopathy Other comments PE PER RN Results Lab Laboratory Tests 05/31/22 12:42 06/01/22 03:42 Assessment/Plan Assessment/Plan 1. Moderate hypotension due to dehydration 2. Gastric outlet obstruction with gastric mass suspicious highly of malignancy and also metastasis. 3. History of weight loss probably due to underlying malignancy 4. COPD clinically stable 5. Atrial fibrillation on oral anticoagulant therapy 6. History of hypertension currently blood pressure is on the low side. 7. Chronic back pain due to degenerative disc disease. Recommendations 1. Will give another liter of normal saline bolus and continue IV fluid at 125 cc now. 2. We will give IV Zofran for nausea and vomiting 3. Keep n.p.o. 4. General surgical consultation obtained and are tentatively scheduled for EGD on 06/02/2022. 5. Further treatment plan per gastric biopsy results. Critical Care: Critically Ill Patient Time spent with patient (mins): 25 MALICK BAJWA MD Jun 01, 2022 09:14
--- NOTE | 2022-06-01 09:42 | Progress Note - Surgery ---
MUNIRA CULLEN 06/01/22 0942: Subjective Date Seen by a Provider: Jun 01, 2022 Time Seen by a Provider: 08:35 Subjective/Events-last exam Patient says she feels better today and not as weak as yesterday. She did have 2-3 episodes of emesis last night that she described as dark green. She had bro th for dinner last night, early this AM she woke up and had to vomit. She has not been ambulating, wren still in place. She denies any pain. Does endorse having heartburn, but claimed this is nothing new. She also said her shortness of breath has improved with O2. Review of Systems HEENT: No Dysphasia; Other (heartburn) Pulmonary: No Dyspnea, No Cough Cardiovascular: No: Chest Pain, Lt Headedness Gastrointestinal: Nausea (not currently, early this AM when she vomited), Vomiting; No: Abdominal Pain Focused Exam Lactate Level 05/31/22 12:42: Lactic Acid Level 2.48*H 05/31/22 15:16: Lactic Acid Level 1.52 Objective Exam Vital Signs Date Time Temp Pulse Resp B/P (MAP) Pulse Ox O2 Delivery O2 Flow Rate FiO2 06/01/22 09:00 96 16 88/44 (59) 100 Nasal Cannula 1.00 06/01/22 08:00 99 Nasal Cannula 1.00 06/01/22 08:00 98 12 91/56 (68) 100 Nasal Cannula 1.00 06/01/22 07:00 71 18 95/47 (63) 100 Nasal Cannula 1.00 06/01/22 07:00 86 06/01/22 06:59 100 Nasal Cannula 2.00 06/01/22 05:00 69 18 86/49 (61) 100 Nasal Cannula 2.00 06/01/22 04:20 99 Nasal Cannula 2.00 06/01/22 04:04 36.8 Nasal Cannula 2.00 06/01/22 04:00 82 16 94/61 (72) 100 Nasal Cannula 2.00 06/01/22 03:00 75 18 92/53 (66) 100 Nasal Cannula 2.00 06/01/22 02:00 79 17 101/65 (77) 100 Nasal Cannula 2.00 06/01/22 01:00 80 06/01/22 01:00 70 17 89/49 (62) 100 Nasal Cannula 2.00 06/01/22 00:33 97 Nasal Cannula 2.00 06/01/22 00:00 81 14 79/53 (62) 92 Nasal Cannula 2.00 05/31/22 23:00 36.6 Nasal Cannula 2.00 05/31/22 23:00 76 18 80/46 (57) 100 Nasal Cannula 2.00 05/31/22 22:50 96 Nasal Cannula 2.00 05/31/22 22:00 81 9 93/40 (57) 100 Nasal Cannula 2.00 05/31/22 21:06 79 18 99/54 (69) 100 Nasal Cannula 2.00 05/31/22 20:00 97 Nasal Cannula 2.00 05/31/22 20:00 82 16 112/57 (75) 100 Nasal Cannula 2.00 05/31/22 20:00 36.4 Nasal Cannula 2.00 05/31/22 19:00 79 9 91/60 (70) 100 Nasal Cannula 2.00 05/31/22 19:00 80 05/31/22 18:57 99 Nasal Cannula 2.00 05/31/22 18:00 80 13 105/74 (84) 100 Nasal Cannula 2.00 05/31/22 17:00 79 13 95/61 (72) 99 Nasal Cannula 2.00 05/31/22 16:43 78 109/65 05/31/22 16:42 78 109/65 05/31/22 16:20 99 Nasal Cannula 2.00 05/31/22 16:19 78 14 109/65 (80) 98 Nasal Cannula 2.00 05/31/22 16:18 36.4 117 94 28 05/31/22 16:10 88 05/31/22 15:37 82 16 80/45 94 Nasal Cannula 2.00 05/31/22 13:30 96 Nasal Cannula 2.00 05/31/22 12:35 36.4 117 20 91/75 (80) 94 I & O 06/01/22 07:00 Intake Total 4960 ml Output Total 925 ml Balance 4035 ml Capillary Refill : Less Than 3 Seconds General Appearance: No Apparent Distress, Chronically ill HEENT: PERRL/EOMI, Moist Mucous Membranes Neck: Non Tender, Supple Respiratory: No Accessory Muscle Use, No Respiratory Distress, Decreased Breath Sounds (right lung at the base), Wheezing (right side on expiration) Cardiovascular: Irregularly Irregular, Tachycardia Peripheral Pulses: 2+ Dorsalis Pedis (R), 2+ Left Dors-Pedis (L), 2+ Radial Pulses (R), 2+ Radial Pulses (L) Gastrointestinal: non tender, soft; No hernia Extremity: Non Tender, No Calf Tenderness, No Pedal Edema Neurologic/Psychiatric: Alert, Oriented x3 Skin: Cool, Other (multiple bruises on upper extremity) Lymphatic: No Adenopathy (cervical, axillary) Results Lab Laboratory Tests 05/31/22 12:42: White Blood Count 8.6, Red Blood Count 3.69L, Hemoglobin 11.4L, Hematocrit 36, Mean Corpuscular Volume 97, Mean Corpuscular Hemoglobin 31, Mean Corpuscular Hemoglobin Concent 32, Red Cell Distribution Width 14.7H, Platelet Count 292, Mean Platelet Volume 10.1, Immature Granulocyte % (Auto) 1, Neutrophils (%) (Auto) 71, Lymphocytes (%) (Auto) 13, Monocytes (%) (Auto) 12, Eosinophils (%) (Auto) 2, Basophils (%) (Auto) 1, Neutrophils # (Auto) 6.2, Lymphocytes # (Auto) 1.2, Monocytes # (Auto) 1.1H, Eosinophils # (Auto) 0.1, Basophils # (Auto) 0.1, Immature Granulocyte # (Auto) 0.1, Prothrombin Time 16.7H, INR Comment 1.3, Activated Partial Thromboplast Time 36H, Sodium Level 136, Potassium Level 3.1L, Chloride Level 88L, Carbon Dioxide Level 32, Anion Gap 16H, Blood Urea Nitrogen 22H, Creatinine 1.26, Estimat Glomerular Filtration Rate 42, BUN/Creatinine Ratio 17, Glucose Level 108H, Lactic Acid Level 2.48*H, Calcium Level 8.9, Corrected Calcium 9.0, Magnesium Level 1.2L, Total Bilirubin 1.1H, Aspartate Amino Transf (AST/SGOT) 19, Alanine Aminotransferase (ALT/SGPT) 8, Alkaline Phosphatase 61, Total Protein 6.6, Albumin 3.9 05/31/22 14:37: Urine Color YELLOW, Urine Clarity CLOUDY, Urine pH 6.0, Urine Specific [place] 1.020, Urine Protein 1+H, Urine Glucose (UA) NEGATIVE, Urine Ketones TRACEH, Urine Nitrite NEGATIVE, Urine Bilirubin NEGATIVE, Urine Urobilinogen 0.2, Urine Leukocyte Esterase TRACEH, Urine RBC (Auto) NEGATIVE, Urine RBC RARE, Urine WBC 5-10H, Urine Squamous Epithelial Cells 2-5, Urine Crystals NONE, Urine Bacteria FEWH, Urine Casts NONE, Urine Mucus NEGATIVE, Urine Culture Indicated CULTURE PENDING 05/31/22 15:16: Lactic Acid Level 1.52 05/31/22 20:04: Glucometer 73 06/01/22 03:42: White Blood Count 5.8, Red Blood Count 3.20L, Hemoglobin 9.9L, Hematocrit 32L, Mean Corpuscular Volume 99, Mean Corpuscular Hemoglobin 31, Mean Corpuscular Hemoglobin Concent 31L, Red Cell Distribution Width 14.8H, Platelet Count 195, Mean Platelet Volume 10.0, Immature Granulocyte % (Auto) 1, Neutrophils (%) (Auto) 71, Lymphocytes (%) (Auto) 12, Monocytes (%) (Auto) 12, Eosinophils (%) (Auto) 3, Basophils (%) (Auto) 1, Neutrophils # (Auto) 4.1, Lymphocytes # (Auto) 0.7L, Monocytes # (Auto) 0.7, Eosinophils # (Auto) 0.2, Basophils # (Auto) 0.0, Immature Granulocyte # (Auto) 0.0, Sodium Level 137, Potassium Level 3.1L, Chloride Level 98, Carbon Dioxide Level 27, Anion Gap 12, Blood Urea Nitrogen 17, Creatinine 0.91, Estimat Glomerular Filtration Rate 63, BUN/Creatinine Ratio 19, Glucose Level 91, Calcium Level 7.7L, Corrected Calcium 8.4L, Phosphorus Level 2.2L, Magnesium Level 2.3, Total Bilirubin 0.6, Aspartate Amino Transf (AST/SGOT) 17, Alanine Aminotransferase (ALT/SGPT) 9, Alkaline Phosphatase 58, Total Protein 5.3L, Albumin 3.1L Assessment/Plan Assessment/Plan Assessment/Plan Gastric/Antral thickening Pleural Effusion Ascites Weight loss, N/V, Anemia Hypokalemia UTI Afib, HTN Plan to offer patient to do an EGD; will wait until Friday to try and let eliquis dissipate. She claimed she is not currently nauseas, but did wake up early in AM with nausea and vomited, will continue zofran PRN. Monitor hgb with AM labs. Urine culture ordered. Contine on oral KCl for potassium replacement. Nothing to do for pleural effusion and not sure significance of ascites. Pt is getting K+ supplementation and ABX for UTI. HTN will be started on IV meds. Will order CEA, CA19-9 and AFP Clinical Quality Measures DVT/VTE Risk/Contraindication: Contraindications-Pharm: Other *list below* Other: gastric cancer needs EGD DERRICKJUANCHO ROBERTO DO 06/01/22 1400: Subjective Time Seen by a Provider: 09:35 Subjective/Events-last exam PT seen and examined, no changes today. Did have more vomiting, no real abdominal pain. Review of Systems HEENT: No Dysphasia; Other (heartburn) Pulmonary: No Dyspnea, No Cough Cardiovascular: No: Chest Pain Gastrointestinal: Nausea (not currently, early this AM when she vomited), Vomiting; No: Abdominal Pain Objective Exam General Appearance: No Apparent Distress, Chronically ill HEENT: PERRL/EOMI, Moist Mucous Membranes Respiratory: No Accessory Muscle Use, No Respiratory Distress, Decreased Breath Sounds (right lung at the base), Wheezing (right side on expiration) Cardiovascular: Irregularly Irregular, Tachycardia Gastrointestinal: non tender, soft; No hernia Extremity: No Calf Tenderness, No Pedal Edema Neurologic/Psychiatric: Alert, Oriented x3 Skin: Other (multiple bruises on upper extremity) Assessment/Plan Assessment/Plan Assessment/Plan Gastric/Antral thickening Pleural Effusion Ascites Weight loss, N/V, Anemia Hypokalemia UTI Afib, HTN Plan to offer patient to do an EGD; will wait until Friday to try and let eliquis dissipate. She claimed she is not currently nauseas, but did wake up early in AM with nausea and vomited, will continue zofran PRN. Monitor hgb with AM labs. Urine culture ordered. Contine on oral KCl for potassium replacement. Nothing to do for pleural effusion and not sure significance of ascites. Pt is getting K+ supplementation and ABX for UTI. HTN will be started on IV meds. Awaiting results of CEA, CA19-9 and AFP Supervisory-Addendum Brief Verification & Attestation Participated in pt care: history, MDM, physical Personally performed: exam, history, MDM, supervision of care Care discussed with: Medical Student Procedures: n/a Verification and Attestation of Medical Student E/M Service A medical student performed and documented this service. I then reviewed and verified all information documented by the medical student and made modifications to such information, when appropriate. I personally performed a physical exam, medical decision making and then discussed any differences between the notes and made revisions as necessary to create one note. Juancho Ribera , 06/01/22 , 14:00 MUNIRA CULLEN Jun 01, 2022 09:42 JUANCHO RIBERA DO Jun 01, 2022 14:00
--- NOTE | 2022-06-01 10:06 | Consultation-Cardiology ---
HPI-Cardiology Cardiology Consultation Date of Consultation 06/01/22 Date of Admission Time Seen by Provider: 10:01 Indication: Atrial fibrillation HPI 81-year-old lady with history of atrial fibrillation, followed at [facility] Presented to the hospital with loss of appetite, generalized fatigue. She was recently placed on antibiotics for UTI. She had a CT scan of the abdomen which showed finding consistent with gastric outlet mass with mets. No previous history of malignancy. She has a strong family history of cardiovascular disease. She denied any chest pain, no syncope. She had some chills and felt cold but no fever. Has been coughing up phlegm. Patient was noted to be hypotensive in the hospital. Has been receiving IV fluid. Home Medications & Allergies Allergies: Coded Allergies: ciprofloxacin (Verified Allergy, Unknown, 09/15/19) Home Medication List Reviewed: Yes KHT-Dpuvku-Bzzsky Hx Patient Social History Marital Status: Employed/Student: retired Smoking Status: Former Smoker (smoked a few cigarettes when she was younger) 2nd Hand Smoke Exposure: No Recent Hopitalizations: No Have you traveled recently?: No Alcohol Use?: No Immunizations Up To Date Tetanus Booster (TDap): Less than 5yrs Past Medical History Discussed below Family Medical History Significant Family History: Heart Disease (mom and dad, unsure of specific diagnosis), Hypertension (mom), Lung Disease (dad had emphysema), Other Conditions/Hx (denied FH of diabetes and cancer) Family Medical Hx Strong family history of cardiovascular disease with multiple family members with atrial fibrillation, coronary artery disease and stroke Review of Systems-General Review of Systems Constitutional: see HPI, dizziness, malaise, weakness EENTM: see HPI, no symptoms reported Respiratory: see HPI; No cough; dyspnea on exertion; No hemoptysis, No orthop kylah, No phlegm, No short of breath, No stridor, No wheezing, No other Cardiovascular: see HPI; No chest pain, No edema, No Hx of Intervention, No palpitations, No syncope, No vascular heart diseas, No other Gastrointestinal: see HPI, abdominal pain, loss of appetite, nausea Genitourinary: no symptoms reported, see HPI Musculoskeletal: see HPI, joint pain, muscle weakness Skin: no symptoms reported Psychiatric/Neurological: No Symptoms Reported, See HPI All Other Systems Reviewed Negative Unless Noted: Yes Reviewed Test Results Reviewed Test Results Lab Laboratory Tests Test 05/31/22 12:42 05/31/22 14:37 05/31/22 15:16 05/31/22 20:04 Range/Units White Blood Count 8.6 4.3-11.0 10^3/uL Red Blood Count 3.69 L 3.80-5.11 10^6/uL Hemoglobin 11.4 L 11.5-16.0 g/dL Hematocrit 36 35-52 % Mean Corpuscular Volume 97 80-99 fL Mean Corpuscular Hemoglobin 31 25-34 pg Mean Corpuscular Hemoglobin Concent 32 32-36 g/dL Red Cell Distribution Width 14.7 H 10.0-14.5 % Platelet Count 292 130-400 10^3/uL Mean Platelet Volume 10.1 9.0-12.2 fL Immature Granulocyte % (Auto) 1 % Neutrophils (%) (Auto) 71 42-75 % Lymphocytes (%) (Auto) 13 12-44 % Monocytes (%) (Auto) 12 0-12 % Eosinophils (%) (Auto) 2 0-10 % Basophils (%) (Auto) 1 0-10 % Neutrophils # (Auto) 6.2 1.8-7.8 10^3/uL Lymphocytes # (Auto) 1.2 1.0-4.0 10^3/uL Monocytes # (Auto) 1.1 H 0.0-1.0 10^3/uL Eosinophils # (Auto) 0.1 0.0-0.3 10^3/uL Basophils # (Auto) 0.1 0.0-0.1 10^3/uL Immature Granulocyte # (Auto) 0.1 0.0-0.1 10^3/uL Prothrombin Time 16.7 H 12.2-14.7 SEC INR Comment 1.3 0.8-1.4 Activated Partial Thromboplast Time 36 H 24-35 SEC Sodium Level 136 135-145 MMOL/L Potassium Level 3.1 L 3.6-5.0 MMOL/L Chloride Level 88 L 98-107 MMOL/L Carbon Dioxide Level 32 21-32 MMOL/L Anion Gap 16 H 5-14 MMOL/L Blood Urea Nitrogen 22 H 7-18 MG/DL Creatinine 1.26 0.60-1.30 MG/DL Estimat Glomerular Filtration Rate 42 BUN/Creatinine Ratio 17 Glucose Level 108 H 70-105 MG/DL Lactic Acid Level 2.48 *H 1.52 0.50-2.00 MMOL/L Calcium Level 8.9 8.5-10.1 MG/DL Corrected Calcium 9.0 8.5-10.1 MG/DL Magnesium Level 1.2 L 1.6-2.4 MG/DL Total Bilirubin 1.1 H 0.1-1.0 MG/DL Aspartate Amino Transf (AST/SGOT) 19 5-34 U/L Alanine Aminotransferase (ALT/SGPT) 8 0-55 U/L Alkaline Phosphatase 61 40-136 U/L Total Protein 6.6 6.4-8.2 GM/DL Albumin 3.9 3.2-4.5 GM/DL Urine Color YELLOW Urine Clarity CLOUDY Urine pH 6.0 5-9 Urine Specific [place] 1.020 1.016-1.022 Urine Protein 1+ H NEGATIVE Urine Glucose (UA) NEGATIVE NEGATIVE Urine Ketones TRACE H NEGATIVE Urine Nitrite NEGATIVE NEGATIVE Urine Bilirubin NEGATIVE NEGATIVE Urine Urobilinogen 0.2 < = 1.0 MG/DL Urine Leukocyte Esterase TRACE H NEGATIVE Urine RBC (Auto) NEGATIVE NEGATIVE Urine RBC RARE /HPF Urine WBC 5-10 H /HPF Urine Squamous Epithelial Cells 2-5 /HPF Urine Crystals NONE /LPF Urine Bacteria FEW H /HPF Urine Casts NONE /LPF Urine Mucus NEGATIVE /LPF Urine Culture Indicated CULTURE PENDING Glucometer 73 70-110 MG/DL Test 06/01/22 03:42 Range/Units White Blood Count 5.8 4.3-11.0 10^3/uL Red Blood Count 3.20 L 3.80-5.11 10^6/uL Hemoglobin 9.9 L 11.5-16.0 g/dL Hematocrit 32 L 35-52 % Mean Corpuscular Volume 99 80-99 fL Mean Corpuscular Hemoglobin 31 25-34 pg Mean Corpuscular Hemoglobin Concent 31 L 32-36 g/dL Red Cell Distribution Width 14.8 H 10.0-14.5 % Platelet Count 195 130-400 10^3/uL Mean Platelet Volume 10.0 9.0-12.2 fL Immature Granulocyte % (Auto) 1 % Neutrophils (%) (Auto) 71 42-75 % Lymphocytes (%) (Auto) 12 12-44 % Monocytes (%) (Auto) 12 0-12 % Eosinophils (%) (Auto) 3 0-10 % Basophils (%) (Auto) 1 0-10 % Neutrophils # (Auto) 4.1 1.8-7.8 10^3/uL Lymphocytes # (Auto) 0.7 L 1.0-4.0 10^3/uL Monocytes # (Auto) 0.7 0.0-1.0 10^3/uL Eosinophils # (Auto) 0.2 0.0-0.3 10^3/uL Basophils # (Auto) 0.0 0.0-0.1 10^3/uL Immature Granulocyte # (Auto) 0.0 0.0-0.1 10^3/uL Sodium Level 137 135-145 MMOL/L Potassium Level 3.1 L 3.6-5.0 MMOL/L Chloride Level 98 98-107 MMOL/L Carbon Dioxide Level 27 21-32 MMOL/L Anion Gap 12 5-14 MMOL/L Blood Urea Nitrogen 17 7-18 MG/DL Creatinine 0.91 0.60-1.30 MG/DL Estimat Glomerular Filtration Rate 63 BUN/Creatinine Ratio 19 Glucose Level 91 70-105 MG/DL Calcium Level 7.7 L 8.5-10.1 MG/DL Corrected Calcium 8.4 L 8.5-10.1 MG/DL Phosphorus Level 2.2 L 2.3-4.7 MG/DL Magnesium Level 2.3 1.6-2.4 MG/DL Total Bilirubin 0.6 0.1-1.0 MG/DL Aspartate Amino Transf (AST/SGOT) 17 5-34 U/L Alanine Aminotransferase (ALT/SGPT) 9 0-55 U/L Alkaline Phosphatase 58 40-136 U/L Total Protein 5.3 L 6.4-8.2 GM/DL Albumin 3.1 L 3.2-4.5 GM/DL Radiology Date of Exam:05/31/22 CT ABDOMEN/PELVIS WO PROCEDURE: CT abdomen and pelvis without contrast. TECHNIQUE: Multiple contiguous axial images were obtained through the abdomen and pelvis without the use of intravenous contrast. Auto Exposure Controls were utilized during the CT exam to meet ALARA standards for radiation dose reduction. INDICATION: Vomiting. Weakness. Nausea. COMPARISON: None FINDINGS: Included portions of the lung bases show large likely loculated subpulmonic pleural effusion in the right base. There is associated partial consolidation of the right lower lobe. Note is also made of mild cardiomegaly. Prominent pericardial lymph node is identified and measures 1 cm in diameter. There is also moderate calcified coronary atherosclerosis. CT ABDOMEN: Small amount of abdominopelvic ascites is present. There is no loculated fluid collection or free air. Small bowel loops are nondistended. There is scattered colonic diverticulosis, but no CT evidence of acute diverticulitis. Normal appendix cannot be adequately identified, but there is no pericecal inflammation. There is moderate distention of the stomach. There is abnormal thickened appearance to the antrum and distal body of the stomach. This does result in moderate narrowing of the lumen of the stomach in this area. This is suspicious for gastric malignancy. Several mildly prominent perigastric lymph nodes are also present. The kidneys, adrenal glands, spleen, pancreas, and liver have an unremarkable noncontrast CT appearance. There is moderate diffuse calcified aortic and arterial atherosclerosis. Osseous structures show no acute abnormalities. CT PELVIS: Small amount of free fluid is also present within the pelvis. There is no loculated fluid collection or free air. Urinary bladder is unopacified. No calculi are seen within the urinary bladder. No abnormal lymph nodes are seen. Osseous structures show no acute abnormalities. IMPRESSION: 1. Findings suspicious for malignant thickening of the distal body and antrum of the stomach. This may result in at least partial gastric outlet obstruction. Correlation with upper endoscopy is advised. 2. Moderate-sized likely loculated subpulmonic effusion in the right base. 3. Multiple mildly prominent perigastric and pericardial lymph nodes suspicious for metastatic disease. Correlation with CT PET is advised. 4. Mild abdominal pelvic ascites. 5. Colonic diverticulosis, but no CT evidence of acute diverticulitis. Dictated by: Dictated on workstation # [id number] Dict: 05/31/22 1355 Trans: 05/31/22 1650 [facility] [id number] Interpreted by: NITO QUIROGA MD Electronically signed by: NITO QUIROGA MD 05/31/22 2075 Physical Exam Physical Exam Vital Signs Vital Signs - First Documented 05/31/22 05/31/22 05/31/22 12:35 13:30 16:18 Temp 36.4 Pulse 117 Resp 20 B/P (MAP) 91/75 (80) Pulse Ox 94 O2 Delivery Nasal Cannula O2 Flow Rate 2.00 FiO2 28 Capillary Refill : Less Than 3 Seconds Height, Weight, BMI Height: 5'6.00" Weight: 180lbs. oz. 81.848956qg; 27.42 BMI Method:Stated General Appearance: No Apparent Distress, Chronically ill Eyes: Right Eye Normal Inspection, Right Eye PERRL; Bilateral Eye EOMI, Bilateral Eye Scleral Icterus (mild) HEENT: PERRL/EOMI, Moist Mucous Membranes Neck: Non Tender, Supple Respiratory: No Accessory Muscle Use, No Respiratory Distress, Decreased Breath Sounds (right lung at the base), Wheezing (right side on expiration) Cardiovascular: Systolic Murmur, Irregularly Irregular Gastrointestinal: Normal Bowel Sounds, No Organomegaly, No Pulsatile Mass, Non Tender, Soft Back: Normal Inspection, No CVA Tenderness, No Vertebral Tenderness Extremity: Non Tender, No Calf Tenderness, No Pedal Edema Neurologic/Psychiatric: Alert, Oriented x3 Skin: Cool, Other (multiple bruises on upper extremity) Lymphatic: No Adenopathy (cervical, axillary) A/P-Cardiology Admission Diagnosis Hypotensive shock Atrial fibrillation Gastric tumor UTI Assessment/Plan Hypotensive shock, most probably hypovolemic shock due to poor oral intake. Starting on IV fluid and continue to monitor closely Atrial fibrillation, borderline tachycardia History of chronic atrial fibrillation followed by a spinner open end at [facility]. No recent cardiac work-up, I will evaluate 2D echocardiogram and monitor heart rate. No recent cardiac work-up to evaluate for any ischemic heart disease Patient had extensive family history, atrial fibrillation, was scheduled for a stress test on June 06 which was canceled. Currently asymptomatic. Nausea and loss of appetite Gastric/antral thickening with questionable mets. Dr. Mitchell consulted for possible endoscopy. Pleural effusion, ascites, continue with IV fluid for now and monitor. UTI. Received antibiotic Strong family history of heart disease. Preoperative cardiac evaluation, patient is considered at intermediate to high risk for perioperative cardiovascular complications, decision regarding surgery, risk versus benefit is deferred to the surgeon Clinical Quality Measures DVT/VTE Risk/Contraindication: Contraindications-Pharm: Other *list below* Other: gastric cancer needs EGD NARDA GARCIA MD Jun 01, 2022 10:06
--- NOTE | 2022-06-01 13:55 | Diagnostic Imaging Report ---
Indication: Central line placement. Comparison: Earlier same day. Discussion: Single portable upright view of the chest was obtained. There is a new left IJ central venous catheter with tip folded upon itself within the left innominate vein. Cardiomegaly is stable. Elevated right hemidiaphragm and/or large right effusion is stable. Atelectasis within the right lung base is stable. No pneumothorax. No osseous abnormality. Impression: 1. Left IJ central venous catheter tip is folded upon itself within the left innominate vein. Dictated by: Dictated on workstation # [id number]
--- NOTE | 2022-06-01 14:04 | Progress Note-Post Operative ---
Post-Operative Progess Note Surgeon (s)/Brick Baker (s) Surgeon JESICA RIBERA DO Brick Baker: none Pre-Operative Diagnosis Venous insufficiency Post-Operative Diagnosis same Procedure & Operative Findings Date of Procedure 06/01/22 Procedure Performed/Findings The patient was in their bed in the ICU, was prepped and draped in a sterile fashion. A surgical pause was performed. Ultrasound was used to locate the internal jugular vein. Once located anesthetic was infiltrated above it. Using an 18 gauge finder needle and watching with the US; the left internal jugular vein was accessed. Dark nonpulsatile blood was withdrawn. The wire was inserted; did have some trouble getting it to go in. US showed wire in the IJ with proper placement. The needle was removed. A [#11] blade scalpel was used to make a stab incision along the guidewire. Dilator sheath was then advanced over the wire using Seldinger technique and the dilator was removed. The Groshong catheter was inserted over the guide wire using the Seldinger technique. The Groshong wire was removed. The catheter was then accessed in all three ports without difficulty. Good flash of blood was seen and it was then flushed with saline. The catheter was sutured in place with 3-0 silk needle. The area was then washed and dried. Sterile dressing was placed over incision. The patient tolerated the procedure well without complication. Ordered a CXR and unfortunately it appears that the catheter loops back on itself, but it flushes and withdraws. I recommend leaving it in place and using it; no harm from that. Anesthesia Type local lidocaine Estimated Blood Loss Estimated blood loss (mL): scant Specimens/Packing Specimens Removed none JESICA RIBERA DO Jun 01, 2022 14:04
[2022-06-01] MEDS: NOREPINEPHRINE 8 MG/250 ML 250 ML IV SCH (14:16)
[2022-06-01] MEDS: cefTRIAXone 1 GM PRE-MIX 50 ML IV SCH (14:34)
[2022-06-01] MEDS: dilTIAZem DRIP PRE-MIX 125 ML IV SCH (16:58)
[2022-06-01] MEDS ORDERED: METOCLOPRAMIDE INJ 10 MG/2 ML (REGLAN) ONE (17:14)
[2022-06-01] MEDS ORDERED: METOCLOPRAMIDE INJ 10 MG/2 ML (REGLAN) IVP ONE (17:15)
[2022-06-02] MEDS: NS IV 1000 ML 1,000 ML IV SCH ×3 (00:34→15:51)
[2022-06-02] MEDS: RT-ALBUTEROL SULF 2.5 MG/3 ML PRE-MIX VIAL INH SCH ×5 (02:19→19:07)
[2022-06-02 04:15] LABS: BASOPHILS % (AUTO) 1 % (0-10); EOSINOPHILS # (AUTO) 0.2 10^3/uL (0.0-0.3); EOSINOPHILS % (AUTO) 2 % (0-10); HEMATOCRIT 31 % (35-52); HEMOGLOBIN 9.5 g/dL (11.5-16.0); LYMPHOCYTES # (AUTO) 0.8 10^3/uL (1.0-4.0); LYMPHOCYTES % (AUTO) 12 % (12-44); MEAN CORPUSCULAR HEMOGLOBIN 31 pg (25-34); MEAN CORPUSCULAR HGB CONC 31 g/dL (32-36); MEAN CORPUSCULAR VOLUME 99 fL (80-99); MEAN PLATELET VOLUME 9.7 fL (9.0-12.2); MONOCYTES # (AUTO) 0.8 10^3/uL (0.0-1.0); MONOCYTES % (AUTO) 13 % (0-12); NEUTROPHILS # (AUTO) 4.7 10^3/uL (1.8-7.8); NEUTROPHILS % (AUTO) 72 % (42-75); PLATELET COUNT 198 10^3/uL (130-400); WHITE BLOOD COUNT 6.6 10^3/uL (4.3-11.0)
[2022-06-02 04:25] LABS: ALBUMIN 2.7 GM/DL (3.2-4.5); CHLORIDE 107 MMOL/L (98-107); POTASSIUM 3.5 MMOL/L (3.6-5.0); SODIUM 137 MMOL/L (135-145)
[2022-06-02 04:26] LABS: CALCIUM 6.9 MG/DL (8.5-10.1)
[2022-06-02 04:28] LABS: GLUCOSE 88 MG/DL (70-105); TOTAL PROTEIN 4.7 GM/DL (6.4-8.2)
[2022-06-02 04:29] LABS: CARBON DIOXIDE 21 MMOL/L (21-32)
[2022-06-02 04:30] LABS: BILIRUBIN,TOTAL 0.5 MG/DL (0.1-1.0)
[2022-06-02] MEDS: POTASSIUM CL 10MEQ/50ML IVPB 50 ML IV SCH ×3 (04:30→05:54)
[2022-06-02 04:31] LABS: ALKALINE PHOSPHATASE 47 U/L (40-136); GFR ESTIMATED 86; PHOSPHORUS 1.6 MG/DL (2.3-4.7)
[2022-06-02 04:32] LABS: BUN/CREATININE RATIO 16
[2022-06-02 04:34] LABS: ALANINE AMINOTRANSFERASE < 6 U/L (0-55); MAGNESIUM 1.8 MG/DL (1.6-2.4)
[2022-06-02] MEDS: MAGNESIUM 1 GM/100 ML IVPB 100 ML IV SCH (04:35)
[2022-06-02] MEDS: KCL 20 MEQ TAB (K-DUR) PO SCH (04:35)
[2022-06-02] MEDS: ONDANSETRON 4 MG/2 ML (SDV) Z0FRAN IV PRN (04:44)
[2022-06-02] MEDS: LEVOTHYROXINE 112 MCG (LEVOTHROID) TAB PO SCH (06:13)
[2022-06-02] MEDS: SENNOSIDES 8.6 MG (SENOKOT) TAB PO SCH ×2 (07:23→20:02)
[2022-06-02] MEDS: DOCUSATE SODIUM 100 MG (COLACE) CAP PO SCH ×2 (07:23→20:02)
--- NOTE | 2022-06-02 07:46 | Diagnostic Imaging Report ---
Indication: Dyspnea. Comparison: 06/01/2022. Discussion: Single portable upright view of the chest was obtained. Elevated right hemidiaphragm and/or right pleural effusion are stable. Opacities within the right lung base are stable. Mild cardiomegaly is stable. No pneumothorax or osseous abnormality. The left internal jugular catheter with tip in the innominate vein remains folded upon itself. Impression: 1. The left central venous catheter remains folded upon itself within the left innominate vein. Stable chest otherwise. Dictated by: Dictated on workstation # [id number]
--- NOTE | 2022-06-02 07:58 | Progress Note - Hospitalist ---
Subjective HPI/CC On Admission Date Seen by Provider: Jun 02, 2022 Time Seen by Provider: 10:00 CC: Hypotension from hypovolemic shock HPI: This is an 81yoWF who presented to the ER with weakness and found to have hypotension from dehydration. She recently was placed on abx for UTI but she had no signs of sepsis. Abdominal pain prompted CT scan in ER and was found to have findings consistent with gastric outlet mass with mets so Dr Mitchell will have OAC held and perform scope with biopsies to confirm suspicion of cancer. Subjective/Events-last exam Doing well Waiting for EGD Family at bedside Labs stable BP still lower Review of Systems General: Fatigue, Malaise Focused Exam Lactate Level 05/31/22 12:42: Lactic Acid Level 2.48*H 05/31/22 15:16: Lactic Acid Level 1.52 Objective Exam Vital Signs Vital Signs Date Time Temp Pulse Resp B/P (MAP) Pulse Ox O2 Delivery O2 Flow Rate FiO2 06/02/22 18:00 161 131/83 (99) 94 Nasal Cannula 3.00 06/02/22 17:00 26 06/02/22 16:03 36.4 32 Capillary Refill : Less Than 3 Seconds General Appearance: No Apparent Distress, WD/WN, Chronically ill, Thin Respiratory: Lungs Clear, Normal Breath Sounds Cardiovascular: Systolic Murmur, Tachycardia Neurologic/Psychiatric: Alert, Oriented x3, No Motor/Sensory Deficits, Normal Mood/Affect Results/Procedures Lab Laboratory Tests 06/02/22 04:07 Patient resulted labs reviewed. Assessment/Plan Assessment and Plan Assess & Plan/Chief Complaint Assessment: Shock Hypotension without evidence of sepsis Dehydration Gastric outlet mass with mets 100# weight loss in past 6 months Anemia AF OAC HLP UTI Plan: ICU IVF Cardiology Dr Mitchell Critical Care Critically Ill Patient Clinical Quality Measures DVT/VTE Risk/Contraindication: Contraindications-Pharm: Other *list below* Other: gastric cancer needs EGD CASANDRA GUNN DO Jun 02, 2022 07:58
[2022-06-02] MEDS: PANTOPRAZOLE 40 MG (PROTONIX) VIAL IV SCH (08:56)
--- NOTE | 2022-06-02 09:00 | Tele-ICU Progress Note ---
Subjective Date Seen by a Provider: Jun 02, 2022 Subjective/Events-last exam This virtual visit was conducted using real time audio/video. Thank you for asking us to see this patient for respiratory insufficiency due to COPD. Admitted with hypovolemic shock, possible gastric tumor causing outlet obst. PE: Pale VSS. O2 sat 96% on 2 LPM. HEENT: No obvious masses, adenopathy or JVD. Chest: clear to auscultation. CV: Irreg. S1 S2 No murmur or added sounds. Abd: Non-tender. Bowel sounds Y. : Unremarkable. [place]aca Y. POLICY CHANGE CLERK/psychiatric: Grossly intact. No obvious focal findings. Extremities: No edema. Capillary refill < 3 seconds. Skin: unremarkable. Results: Decreased Hb 9.5, K 3.5, Alb 2.7. CXR: Hyperinflated, subpilmonic eff. Available chart/ vitals / labs / images reviewed. Video assessment done using teleICU camera, rest of exam as per RN. A/P: Respiratory insufficiency: Continue present management with O2, PRN Alb. Monitor for increasing oxygenation needs and/or need for intubation. Critical Care: critically ill patient. Cont. PPI, abx, synth. Replace K. EGD today. Discussed with RN Irena. Asked RN to reach out to eICU if any questions or concerns later. Time spent with patient/coordination of care with other health professionals (mins): 20 Sepsis Event Evaluation Height, Weight, BMI Height: 5'6.00" Weight: 180lbs. oz. [id number]; 28.59 BMI Method:Stated Focused Exam Lactate Level 05/31/22 12:42: Lactic Acid Level 2.48*H 05/31/22 15:16: Lactic Acid Level 1.52 Exam Exam Patient acknowledged, consented, and participated in this virtual visit which was conducted using real time audio/video Vital Signs Date Time Temp Pulse Resp B/P (MAP) Pulse Ox O2 Delivery O2 Flow Rate FiO2 06/02/22 08:00 99 Room Air 06/02/22 08:00 92 20 96/57 (70) 100 Room Air 06/02/22 07:51 36.5 06/02/22 07:28 99 Nasal Cannula 2.00 06/02/22 07:00 112 24 120/74 (89) 100 Room Air 06/02/22 07:00 104 10/2/22 06:00 96 22 109/66 (80) 100 Room Air 06/02/22 05:00 105 18 117/75 (89) 98 Room Air 06/02/22 04:00 93 21 110/64 (79) 100 Room Air 06/02/22 04:00 99 Room Air 06/02/22 03:00 92 20 100/61 (74) 100 Room Air 06/02/22 02:00 112 22 91/57 (68) 95 Room Air 06/02/22 01:00 102 06/02/22 01:00 103 21 92/62 (72) 94 Room Air 06/02/22 00:00 99 Room Air 06/02/22 00:00 109 22 99/61 (74) 94 Room Air 06/01/22 23:00 105 20 104/62 (76) 94 Room Air 06/01/22 22:58 95 Room Air 06/01/22 22:00 111 22 94/59 (71) 95 Room Air 06/01/22 21:00 110 21 103/57 (72) 94 Room Air 06/01/22 20:00 105 21 118/68 (85) 95 Room Air 06/01/22 20:00 99 Room Air 06/01/22 20:00 36.5 06/01/22 19:00 111 21 114/75 (88) 92 Room Air 06/01/22 19:00 117 06/01/22 18:53 97 Room Air 06/01/22 18:00 115 19 120/85 (97) 95 Room Air 06/01/22 17:00 104 22 111/70 (84) 93 Room Air 06/01/22 16:00 36.6 06/01/22 16:00 99 Nasal Cannula 1.00 06/01/22 16:00 96 20 111/68 (82) 94 Room Air 06/01/22 15:00 100 17 102/69 (80) 96 Room Air 06/01/22 14:00 94 Room Air 06/01/22 14:00 91 21 108/57 (74) 95 Nasal Cannula 1.00 06/01/22 13:00 82 22 99/52 (68) 96 Nasal Cannula 1.00 06/01/22 12:31 100 06/01/22 12:00 90 25 111/73 (86) 100 Nasal Cannula 1.00 06/01/22 12:00 99 Nasal Cannula 1.00 06/01/22 11:00 90 18 91/57 (68) 100 Nasal Cannula 1.00 06/01/22 10:40 98 Nasal Cannula 1.00 06/01/22 10:00 87 18 90/53 (65) 100 Nasal Cannula 1.00 06/01/22 09:00 96 16 88/44 (59) 100 Nasal Cannula 1.00 I & O 06/02/22 07:00 Intake Total 1450 ml Output Total 655 ml Balance 795 ml Height & Weight Height: 5'6.00" Weight: 180lbs. oz. [id number]; 28.59 BMI Method:Stated General Appearance: No Apparent Distress, WD/WN, Chronically ill, Thin HEENT: PERRL/EOMI, Moist Mucous Membranes Neck: Full Range of Motion, Normal Inspection, Non Tender Respiratory: Lungs Clear, Normal Breath Sounds, Decreased Breath Sounds Cardiovascular: Regular Rate, Rhythm Capillary Refill: Less Than 3 Seconds Peripheral Pulses: 2+ Dorsalis Pedis (R), 2+ Left Dors-Pedis (L), 2+ Radial Pulses (R), 2+ Radial Pulses (L) Gastrointestinal: non tender, soft; No hernia Extremity: No Calf Tenderness, No Pedal Edema Neurologic/Psychiatric: Alert, Oriented x3, Depressed Affect Skin: Other (multiple bruises on upper extremity) Lymphatic: No Adenopathy Results Lab Laboratory Tests 05/31/22 12:42 06/01/22 03:42 06/02/22 04:07 Assessment/Plan Assessment/Plan See free text. Critical Care: Critically Ill Patient AVNI LUBIN MD Jun 02, 2022 09:00
--- NOTE | 2022-06-02 09:40 | Cardiology Progress Note ---
Subjective Date Seen by Provider: Jun 02, 2022 Time Seen by Provider: 09:38 Subjective/Events-last exam Patient was seen at bedside, laying down comfortably, feeling better. Review of Systems General: No Chills, No Night Sweats; Fatigue, Malaise; No Appetite, No Other HEENT: No Head Aches, No Visual Changes, No Eye Pain, No Ear Pain, No Dysphasia, No Sinus Congestion, No Post Nasal Drip, No Sore Throat, No Other Pulmonary: No Dyspnea, No Cough, No Pleuritic Chest Pain, No Other Cardiovascular: No: Chest Pain, Palpitations, Orthopnea, Paroxysmal Noc. Dyspnea, Edema, Lt Headedness, Other Gastrointestinal: Nausea, Vomiting Focused Exam Lactate Level 05/31/22 12:42: Lactic Acid Level 2.48*H 05/31/22 15:16: Lactic Acid Level 1.52 Objective-Cardiology Exam Last Set of Vital Signs Vital Signs 05/31/22 06/02/22 06/02/22 06/02/22 16:18 07:28 07:51 08:00 Temp 36.5 Pulse 92 Resp 20 B/P (MAP) 96/57 (70) Pulse Ox 99 O2 Delivery Room Air O2 Flow Rate 2.00 FiO2 28 I&O Intake and Output 06/02/22 00:00 Intake Total 3550 ml Output Total 1125 ml Balance 2425 ml Intake Oral 250 ml IV Total 3300 ml Output Urine Total 825 ml Emesis 300 ml General: Alert, Oriented X3, Cooperative HEENT: Atraumatic, PERRLA Neck: Supple, No JVD, No Thyromegaly Lungs: Clear to Auscultation, Normal Air Movement Heart: Normal S1, Normal S2, No Murmurs, Other (Atrial fibrillation) Abdomen: Normal Bowel Sounds, Soft, No Hepatosplenomegaly, No Masses Extremities: No Clubbing, No Cyanosis, No Edema, Normal Pulses, No Tenderness/Swelling Skin: No Rashes, No Breakdown, No Significant Lesion Neuro: Normal Speech Psych/Mental Status: Mental Status NL, Mood NL Results Lab Laboratory Tests 06/02/22 04:07 A/P-Cardiology Admission Diagnosis Hypotensive shock Atrial fibrillation Gastric tumor UTI Assessment/Plan Hypotensive shock, most probably hypovolemic shock due to poor oral intake. 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 Heart rate is slightly better, continue to monitor and continue with IV fluid 2D echo was done on June 01, 2022 showing normal LV size with a EF 55%, pulmonary hypertension with PA pressure 40 to 45 mmHg, moderate mitral regurgitation, mild aortic valve stenosis No recent cardiac work-up to evaluate for any ischemic heart disease Patient had extensive family history, atrial fibrillation, was scheduled for a stress test on June 06 which was canceled. Currently asymptomatic. Nausea and loss of appetite Gastric/antral thickening with questionable mets. Dr. Mitchell consulted for possible endoscopy. Pleural effusion, ascites, continue with IV fluid for now and monitor. UTI. Received antibiotic Strong family history of heart disease. Preoperative cardiac evaluation, patient is considered at intermediate to high risk for perioperative cardiovascular complications, decision regarding surgery, risk versus benefit is deferred to the surgeon NARDA GARCIA MD Jun 02, 2022 09:40
--- NOTE | 2022-06-02 11:22 | Progress Note - Surgery ---
MUNIRA CULLEN 06/02/22 1122: Subjective Date Seen by a Provider: Jun 02, 2022 Time Seen by a Provider: 10:45 Subjective/Events-last exam Patient says she is feeling better and less weak today. She had one episode of emesis this morning that she described as green. She had not eaten anything isabelle or to this episode of emesis. She has not ambulated since admission. She has less heartburn than yesterday and denies abdominal pain. Review of Systems Pulmonary: No Dyspnea, No Cough Cardiovascular: No: Chest Pain, Lt Headedness Gastrointestinal: Nausea, Vomiting; No: Abdominal Pain Focused Exam Lactate Level 05/31/22 12:42: Lactic Acid Level 2.48*H 05/31/22 15:16: Lactic Acid Level 1.52 Objective Exam Vital Signs Date Time Temp Pulse Resp B/P (MAP) Pulse Ox O2 Delivery O2 Flow Rate FiO2 06/02/22 11:00 105 20 106/60 (75) 95 Room Air 06/02/22 10:00 92 27 98/58 (71) 100 Room Air 06/02/22 09:00 96 21 96/72 (80) 100 Room Air 06/02/22 08:00 99 Room Air 06/02/22 08:00 92 20 96/57 (70) 100 Room Air 06/02/22 07:51 36.5 06/02/22 07:28 99 Nasal Cannula 2.00 06/02/22 07:00 112 24 120/74 (89) 100 Room Air 06/02/22 07:00 104 06/02/22 06:00 96 22 109/66 (80) 100 Room Air 06/02/22 05:00 105 18 117/75 (89) 98 Room Air 06/02/22 04:00 93 21 110/64 (79) 100 Room Air 06/02/22 04:00 99 Room Air 06/02/22 03:00 92 20 100/61 (74) 100 Room Air 06/02/22 02:00 112 22 91/57 (68) 95 Room Air 06/02/22 01:00 102 06/02/22 01:00 103 21 92/62 (72) 94 Room Air 06/02/22 00:00 99 Room Air 06/02/22 00:00 109 22 99/61 (74) 94 Room Air 06/01/22 23:00 105 20 104/62 (76) 94 Room Air 06/01/22 22:58 95 Room Air 06/01/22 22:00 111 22 94/59 (71) 95 Room Air 06/01/22 21:00 110 21 103/57 (72) 94 Room Air 06/01/22 20:00 105 21 118/68 (85) 95 Room Air 06/01/22 20:00 99 Room Air 06/01/22 20:00 36.5 06/01/22 19:00 111 21 114/75 (88) 92 Room Air 06/01/22 19:00 117 06/01/22 18:53 97 Room Air 06/01/22 18:00 115 19 120/85 (97) 95 Room Air 06/01/22 17:00 104 22 111/70 (84) 93 Room Air 06/01/22 16:00 36.6 06/01/22 16:00 99 Nasal Cannula 1.00 06/01/22 16:00 96 20 111/68 (82) 94 Room Air 06/01/22 15:00 100 17 102/69 (80) 96 Room Air 06/01/22 14:00 94 Room Air 06/01/22 14:00 91 21 108/57 (74) 95 Nasal Cannula 1.00 06/01/22 13:00 82 22 99/52 (68) 96 Nasal Cannula 1.00 06/01/22 12:31 100 06/01/22 12:00 90 25 111/73 (86) 100 Nasal Cannula 1.00 06/01/22 12:00 99 Nasal Cannula 1.00 I & O 06/02/22 07:00 Intake Total 1450 ml Output Total 655 ml Balance 795 ml Capillary Refill : Less Than 3 Seconds General Appearance: No Apparent Distress, Chronically ill HEENT: PERRL/EOMI, Moist Mucous Membranes Neck: Non Tender, Supple Respiratory: No Accessory Muscle Use, No Respiratory Distress, Decreased Breath Sounds (right lung base), Wheezing (right side) Cardiovascular: No Murmur, Irregularly Irregular Peripheral Pulses: 2+ Dorsalis Pedis (R), 2+ Left Dors-Pedis (L), 2+ Radial Pulses (R), 2+ Radial Pulses (L) Gastrointestinal: non tender, soft; No hernia Extremity: Non Tender, No Calf Tenderness, No Pedal Edema Neurologic/Psychiatric: Alert, Oriented x3 Skin: Cool, Other (multiple bruises on upper extremity) Lymphatic: No Adenopathy (cervical, axillary) Results Lab Laboratory Tests 06/02/22 04:07: White Blood Count 6.6, Red Blood Count 3.08L, Hemoglobin 9.5L, Hematocrit 31L, Mean Corpuscular Volume 99, Mean Corpuscular Hemoglobin 31, Mean Corpuscular Hemoglobin Concent 31L, Red Cell Distribution Width 15.1H, Platelet Count 198, Mean Platelet Volume 9.7, Immature Granulocyte % (Auto) 1, Neutrophils (%) (Auto) 72, Lymphocytes (%) (Auto) 12, Monocytes (%) (Auto) 13H, Eosinophils (%) (Auto) 2, Basophils (%) (Auto) 1, Neutrophils # (Auto) 4.7, Lymphocytes # (Auto) 0.8L, Monocytes # (Auto) 0.8, Eosinophils # (Auto) 0.2, Basophils # (Auto) 0.0, Immature Granulocyte # (Auto) 0.0, Sodium Level 137, Potassium Level 3.5L, Chloride Level 107, Carbon Dioxide Level 21, Anion Gap 9, Blood Urea Nitrogen 11, Creatinine 0.70, Estimat Glomerular Filtration Rate 86, BUN/Creatinine Ratio 16, Glucose Level 88, Calcium Level 6.9L, Corrected Calcium 7.9L, Phosphorus Level 1.6L, Magnesium Level 1.8, Total Bilirubin 0.5, Aspartate Amino Transf (AST/SGOT) 15, Alanine Aminotransferase (ALT/SGPT) < 6, Alkaline Phosphatase 47, Total Protein 4.7L, Albumin 2.7L Microbiology 05/31/22 MRSA Screen - Final, Complete MRSA not isolated 05/31/22 Urine Culture - Final, Complete NO GROWTH 05/31/22 Blood Culture - Preliminary, Resulted No growth Assessment/Plan Assessment/Plan Assessment/Plan Gastric/Antral thickening Pleural Effusion Ascites Weight loss, N/V, Anemia Hypokalemia UTI- no growth on culture Afib, HTN Plan to do an EGD today. She claimed she is not currently experiencing nausea, but earlier this AM she had nausea and vomited, will continue zofran PRN. Monitor hgb with AM labs. Urine culture completed and showed no growth. Continue KCl for potassium replacement. Nothing to do for pleural effusion and not sure significance of ascites. HTN will be started on IV meds. Awaiting results of CEA, CA19-9 and AFP Clinical Quality Measures DVT/VTE Risk/Contraindication: Contraindications-Pharm: Other *list below* Other: gastric cancer needs EGD JUANCHO MITCHELL DO 06/02/22 1336: Subjective Time Seen by a Provider: 12:11 Subjective/Events-last exam Pt seen and examined, states she is ready for procedure today. No changes from yesterday, did have episode of vomiting. Review of Systems Pulmonary: No Dyspnea, No Cough Cardiovascular: No: Chest Pain Gastrointestinal: Nausea, Vomiting; No: Abdominal Pain Objective Exam General Appearance: No Apparent Distress, Chronically ill HEENT: PERRL/EOMI, Moist Mucous Membranes Respiratory: No Accessory Muscle Use, No Respiratory Distress, Decreased Breath Sounds (right lung base), Wheezing (right side) Cardiovascular: No Murmur, Irregularly Irregular Gastrointestinal: non tender, soft; No hernia Extremity: No Calf Tenderness, No Pedal Edema Neurologic/Psychiatric: Alert, Oriented x3 Skin: Cool, Other (multiple bruises on upper extremity) Assessment/Plan Assessment/Plan Assessment/Plan Gastric/Antral thickening Pleural Effusion Ascites Weight loss, N/V, Anemia Hypokalemia UTI- no growth on culture Afib, HTN Plan to do an EGD today. She claimed she is not currently experiencing nausea, but earlier this AM she had nausea and vomited, will continue zofran PRN. Monitor hgb with AM labs. Urine culture completed and showed no growth. Continue KCl for potassium replacement. Nothing to do for pleural effusion and not sure significance of ascites. HTN will be started on IV meds. Awaiting results of CEA, CA19-9 and AFP Supervisory-Addendum Brief Verification & Attestation Participated in pt care: history, MDM, physical Personally performed: exam, history, MDM, supervision of care Care discussed with: Medical Student Procedures: n/a Verification and Attestation of Medical Student E/M Service A medical student performed and documented this service. I then reviewed and verified all information documented by the medical student and made modifications to such information, when appropriate. I personally performed a physical exam, medical decision making and then discussed any differences between the notes and made revisions as necessary to create one note. Juancho Mitchell , 06/02/22 , 13:36 MUNIRA CULLEN Jun 02, 2022 11:22 JUANCHO MITCHELL DO Jun 02, 2022 13:36
--- NOTE | 2022-06-02 12:01 | Anesthesia-General Post-Op ---
MAC Patient Condition Mental Status/LOC: Same as Preop Cardiovascular: Satisfactory Nausea/Vomiting: Absent Respiratory: Satisfactory Pain: Controlled Complications: Absent Post Op Complications Complications None Follow Up Care/Instructions Patient Instructions None needed. Anesthesiology Discharge Order Discharge Order Patient is doing well, no complaints, stable vital signs, no apparent adverse anesthesia problems. No complications reported per nursing. PAVITHRA BERMEO CRNA Jun 02, 2022 12:01
[2022-06-02] MEDS ORDERED: PROPOFOL INJECTION 50 ML IV ONE (12:04)
[2022-06-02] MEDS: NOREPINEPHRINE 8 MG/250 ML 250 ML IV SCH (12:39)
[2022-06-02 13:25] VITALS: BP 130/70
[2022-06-02 13:30] VITALS: BP 128/68
[2022-06-02 13:35] VITALS: BP 122/86
--- NOTE | 2022-06-02 13:43 | Progress Note-Post Operative ---
Post-Operative Progess Note Surgeon (s)/Trimmer Meat (s) Surgeon JESICA RIBERA DO Trimmer Meat: none Pre-Operative Diagnosis Gastric/Antral and Duodenal thickening, malnourished Post-Operative Diagnosis same plus Moderated Hiatal hernia Esophagtitis Mild aspiration Procedure & Operative Findings Date of Procedure 06/02/22 Procedure Performed/Findings EGD with bx PROCEDURE NOTE: After informed consent was obtained, the patient was brought to the endoscopy suite, placed in bed in left lateral decubitus position. She was administered IV sedation by the CONTAINER WASHER MACHINE who then monitored vitals the entire time, heart rate, blood pressure and pulse ox and the scope was inserted down the mouth through the esophagus into the stomach. On the way down, noted some moderate esophagitis, took a picture, pushed into the stomach and immediately encountered a lot of liquid and retained food in the stomach. Pushed towards the antrum and saw inflamed possible thickened tissue with one area that looked purplish. It did not look like a mass. It was very thickened at the antrum and almost unable to get the scope into the duodenum. Duodenum looked inflamed with questionable mass or just inflamed tissue pushing into duodenal bulb. I could not get past here to look at the rest of the duodenum. Took two biopsies here in the duodenum. Pulled back and did a biopsy of the antrum near pylorus and then another biopsy of the start of this inflamed area (which I called body). Next, retroflexed the scope and saw a moderate sized hiatal hernia. I took a picture of this, then pulled the scope into the GE junction, took another picture of the hiatal hernia and then did a biopsy of the GE junction. Pushed the scope back into the stomach and attempted to suction out all of the fluid; got most of it, but was stopped by large food particles. I suctioned all the air out of the stomach and at this point pulled the scope up the esophagus and into the mouth. I noted some gastric contents in her trachea and pushed the scope into here and tried to suction all of it out; got almost all of it The patient tolerated the procedure, and she recovered in endoscopy suite. Anesthesia Type IV sedation by CONTAINER WASHER MACHINE Estimated Blood Loss Estimated blood loss (mL): scant Specimens/Packing Specimens Removed duodenal bx x 2 antral bx body of stomach bx JESICA RIBERA DO Jun 02, 2022 13:43
[2022-06-02] MEDS ORDERED: LACTATED RINGERS 1,000 ML IV STA (14:29)
[2022-06-02] MEDS ORDERED: HURRICAINE EXT TUBE (BENZOCAINE) XX PRN (14:30)
[2022-06-02] MEDS ORDERED: LACTATED RINGERS 1,000 ML IV ONE (14:36)
[2022-06-02] MEDS: cefTRIAXone 1 GM PRE-MIX 50 ML IV SCH (15:50)
[2022-06-02 16:03] VITALS: BP 108/80
[2022-06-02] MEDS: dilTIAZem DRIP PRE-MIX 125 ML IV SCH (16:50)
[2022-06-03] MEDS: NS IV 1000 ML 1,000 ML IV SCH ×3 (02:00→17:29)
[2022-06-03] MEDS: RT-ALBUTEROL SULF 2.5 MG/3 ML PRE-MIX VIAL INH SCH ×4 (02:27→21:16)
[2022-06-03] MEDS: NOREPINEPHRINE 8 MG/250 ML 250 ML IV SCH (03:15)
[2022-06-03 04:21] LABS: BASOPHILS # (AUTO) 0.1 10^3/uL (0.0-0.1); BASOPHILS % (AUTO) 0 % (0-10); EOSINOPHILS % (AUTO) 0 % (0-10); HEMATOCRIT 32 % (35-52); HEMOGLOBIN 9.9 g/dL (11.5-16.0); LYMPHOCYTES # (AUTO) 1.3 10^3/uL (1.0-4.0); LYMPHOCYTES % (AUTO) 9 % (12-44); MEAN CORPUSCULAR HEMOGLOBIN 31 pg (25-34); MEAN CORPUSCULAR HGB CONC 31 g/dL (32-36); MEAN CORPUSCULAR VOLUME 99 fL (80-99); MEAN PLATELET VOLUME 9.8 fL (9.0-12.2); MONOCYTES # (AUTO) 1.5 10^3/uL (0.0-1.0); MONOCYTES % (AUTO) 10 % (0-12); NEUTROPHILS # (AUTO) 12.4 10^3/uL (1.8-7.8); NEUTROPHILS % (AUTO) 81 % (42-75); PLATELET COUNT 252 10^3/uL (130-400); WHITE BLOOD COUNT 15.4 10^3/uL (4.3-11.0)
[2022-06-03 04:31] LABS: ALBUMIN 2.8 GM/DL (3.2-4.5); POTASSIUM 3.7 MMOL/L (3.6-5.0)
[2022-06-03 04:33] LABS: CALCIUM 7.2 MG/DL (8.5-10.1)
[2022-06-03] MEDS: POTASSIUM CL 10MEQ/50ML IVPB 50 ML IV SCH (04:33)
[2022-06-03] MEDS: KCL 20 MEQ TAB (K-DUR) PO SCH (04:34)
[2022-06-03 04:36] LABS: BILIRUBIN,TOTAL 0.6 MG/DL (0.1-1.0)
[2022-06-03 04:37] LABS: PHOSPHORUS 1.7 MG/DL (2.3-4.7)
[2022-06-03 04:38] LABS: CREATININE SERUM 0.72 MG/DL (0.60-1.30)
[2022-06-03 04:40] LABS: MAGNESIUM 1.6 MG/DL (1.6-2.4)
[2022-06-03 04:41] LABS: NEUTROPHILS % (MANUAL) 86 %
[2022-06-03 04:42] LABS: BURR CELLS SLIGHT; EOSINOPHILS % (MANUAL) 1 %; LYMPHOCYTES % (MANUAL) 6 %; MONOCYTES % (MANUAL) 7 %
[2022-06-03] MEDS: MAGNESIUM 1 GM/100 ML IVPB 100 ML IV SCH (04:45)
[2022-06-03] MEDS: LEVOTHYROXINE 112 MCG (LEVOTHROID) TAB PO SCH (06:46)
[2022-06-03] MEDS ORDERED: MAGNESIUM 2 GM/50 ML IVPB 50 ML IV ONE (07:00)
--- NOTE | 2022-06-03 07:24 | Progress Note - Surgery ---
JOHN HARRIS 06/03/22 0723: Subjective Date Seen by a Provider: Jun 03, 2022 Time Seen by a Provider: 07:19 Subjective/Events-last exam Patient is resting in bed this morning. She reports she has been nauseous and vomited some clear liquid this morning. She states she begins to cough so hard that she has to vomit at times with the sputum that comes up. She has some discomfort in the RUQ which she rates at a 2/10. She does not have any other pain at the moment. She denies fever or chills at this time. She also denies having any bowel movements since admission. Review of Systems Pulmonary: Dyspnea, Cough Cardiovascular: No: Chest Pain, Palpitations Gastrointestinal: Nausea, Vomiting, Abdominal Pain (mild discomfort, over the RUQ) Focused Exam Lactate Level 05/31/22 12:42: Lactic Acid Level 2.48*H 05/31/22 15:16: Lactic Acid Level 1.52 Objective Exam Vital Signs Date Time Temp Pulse Resp B/P (MAP) Pulse Ox O2 Delivery O2 Flow Rate FiO2 06/03/22 06:00 91 22 105/58 (65) 100 Nasal Cannula 3.00 06/03/22 05:00 93 22 104/55 (69) 100 Nasal Cannula 3.00 06/03/22 04:00 109 25 120/61 (82) 99 Nasal Cannula 3.00 06/03/22 04:00 99 Room Air 06/03/22 03:54 36.5 06/03/22 03:30 102 28 116/62 (87) 100 Nasal Cannula 3.00 06/03/22 03:15 98 88/46 06/03/22 02:27 96 Nasal Cannula 3.00 06/03/22 02:00 108 28 103/54 (75) 100 Nasal Cannula 3.00 06/03/22 01:00 98 28 102/48 (71) 99 Nasal Cannula 3.00 06/03/22 01:00 98 06/03/22 00:04 36.9 06/03/22 00:00 96 28 99/50 (68) 100 Nasal Cannula 3.00 06/03/22 00:00 99 Room Air 06/02/22 23:00 92 21 98/71 (81) 99 Nasal Cannula 3.00 06/02/22 22:00 98 26 109/53 (69) 98 Nasal Cannula 3.00 06/02/22 21:00 99 22 102/50 (69) 100 Nasal Cannula 3.00 06/02/22 20:00 36.5 06/02/22 20:00 96 29 109/58 (80) 97 Nasal Cannula 3.00 06/02/22 19:58 99 Room Air 06/02/22 19:08 94 Nasal Cannula 3.00 06/02/22 19:00 131 06/02/22 19:00 131 29 127/95 (107) 94 Nasal Cannula 3.00 06/02/22 18:00 161 131/83 (99) 94 Nasal Cannula 3.00 06/02/22 17:00 120 26 124/70 (88) 97 Nasal Cannula 3.00 06/02/22 16:50 138 06/02/22 16:03 36.4 150 93 32 06/02/22 16:00 99 Room Air 06/02/22 16:00 125 28 106/60 (75) 97 Nasal Cannula 3.00 06/02/22 16:00 35.9 06/02/22 15:00 142 27 106/71 (83) 92 Nasal Cannula 3.00 06/02/22 14:00 130 24 108/80 (89) 97 Room Air 06/02/22 13:35 139 24 100 Room Air 06/02/22 13:30 146 24 100 OxyMask 4.00 06/02/22 13:25 118 24 100 OxyMask 10.00 06/02/22 13:00 94 19 109/59 (76) 100 Room Air 06/02/22 12:39 98 06/02/22 12:36 98 06/02/22 12:00 99 Room Air 06/02/22 12:00 100 18 100/57 (71) 100 Room Air 06/02/22 12:00 36.4 06/02/22 11:00 105 20 106/60 (75) 95 Room Air 06/02/22 10:00 92 27 98/58 (71) 100 Room Air 06/02/22 09:00 96 21 96/72 (80) 100 Room Air 06/02/22 08:00 99 Room Air 06/02/22 08:00 92 20 96/57 (70) 100 Room Air 06/02/22 07:51 36.5 06/02/22 07:28 99 Nasal Cannula 2.00 I & O 06/03/22 07:00 Intake Total 450 ml Output Total 1075 ml Balance -625 ml Capillary Refill : Less Than 3 Seconds General Appearance: No Apparent Distress, WD/WN, Chronically ill, Thin HEENT: PERRL/EOMI, Moist Mucous Membranes Neck: Non Tender, Supple Respiratory: Chest Non Tender, No Accessory Muscle Use, No Respiratory Distress, Crackles (mild) Cardiovascular: Systolic Murmur, Tachycardia Peripheral Pulses: 2+ Dorsalis Pedis (R), 2+ Left Dors-Pedis (L), 2+ Radial Pulses (R), 2+ Radial Pulses (L) Gastrointestinal: non tender, soft; No hernia Extremity: No Calf Tenderness, No Pedal Edema Neurologic/Psychiatric: Alert, Oriented x3, Normal Mood/Affect Skin: Cool, Other (multiple bruises on upper extremity) Lymphatic: No Adenopathy (cervical, axillary) Results Lab Laboratory Tests 06/03/22 04:15: White Blood Count 15.4H, Red Blood Count 3.20L, Hemoglobin 9.9L, Hematocrit 32L, Mean Corpuscular Volume 99, Mean Corpuscular Hemoglobin 31, Mean Corpuscular Hemoglobin Concent 31L, Red Cell Distribution Width 15.1H, Platelet Count 252, Mean Platelet Volume 9.8, Immature Granulocyte % (Auto) 1, Neutrophils (%) (Auto) 81H, Lymphocytes (%) (Auto) 9L, Monocytes (%) (Auto) 10, Eosinophils (%) (Auto) 0, Basophils (%) (Auto) 0, Neutrophils # (Auto) 12.4H, Lymphocytes # (Auto) 1.3, Monocytes # (Auto) 1.5H, Eosinophils # (Auto) 0.0, Basophils # (Auto) 0.1, Immature Granulocyte # (Auto) 0.1, Neutrophils % (Manual) 86, Lymphocytes % (Manual) 6, Monocytes % (Manual) 7, Eosinophils % (Manual) 1, Bertrand Cells SLIGHT, Sodium Level 138, Potassium Level 3.7, Chloride Level 107, Carbon Dioxide Level 16L, Anion Gap 15H, Blood Urea Nitrogen 13, Creatinine 0.72, Estimat Glomerular Filtration Rate 83, BUN/Creatinine Ratio 18, Glucose Level 103, Calcium Level 7.2L, Corrected Calcium 8.2L, Phosphorus Level 1.7L, Magnes ium Level 1.6, Total Bilirubin 0.6, Aspartate Amino Transf (AST/SGOT) 15, Alanine Aminotransferase (ALT/SGPT) 7, Alkaline Phosphatase 58, Total Protein 5.0L, Albumin 2.8L Microbiology 05/31/22 MRSA Screen - Final, Complete MRSA not isolated 05/31/22 Urine Culture - Final, Complete NO GROWTH 05/31/22 Blood Culture - Preliminary, Resulted No growth Assessment/Plan Assessment/Plan Assessment/Plan Gastric/Antral thickening Pleural Effusion Ascites Weight loss, N/V, Anemia UTI- no growth on culture Afib, HTN Earlier this AM she had nausea and vomited, will continue zofran PRN. Monitor hgb with labs. Urine culture completed and showed no growth. Nothing to do for pleural effusion and not sure significance of ascites. HTN will be started on IV meds. Awaiting results of CEA, CA19-9 and AFP. Liquid diet with Ensure for protein. Clinical Quality Measures DVT/VTE Risk/Contraindication: Contraindications-Pharm: Other *list below* Other: gastric cancer needs EGD JUANCHO MITCHELL DO 06/03/22 1241: Subjective Time Seen by a Provider: 11:35 Subjective/Events-last exam Pt seen and examined, states she is still having some vomiting but able to take some liquids. Minimal abdominal pain. Review of Systems Pulmonary: Dyspnea, Cough Cardiovascular: Palpitations; No: Chest Pain Gastrointestinal: Nausea, Vomiting, Abdominal Pain (mild discomfort, over the RUQ) Objective Exam General Appearance: Chronically ill, Thin HEENT: PERRL/EOMI, Moist Mucous Membranes Respiratory: Chest Non Tender, No Accessory Muscle Use, No Respiratory Distress, Crackles (mild), Other (decrease BS right lobe) Cardiovascular: Systolic Murmur, Irregularly Irregular, Tachycardia Gastrointestinal: non tender, soft; No hernia Extremity: No Calf Tenderness, No Pedal Edema Neurologic/Psychiatric: Alert, Oriented x3, Normal Mood/Affect Skin: Cool, Other (multiple bruises on upper extremity) Assessment/Plan Assessment/Plan Assessment/Plan Gastric/Antral thickening Malnutrition - poor PO intake Pleural Effusion Ascites Weight loss, N/V, Anemia UTI- no growth on culture Afib, HTN Earlier this AM she had nausea and vomited, will continue zofran PRN. Monitor hgb with labs. Urine culture completed and showed no growth. Nothing to do for pleural effusion and not sure significance of ascites. HTN will be started on IV meds. Awaiting results of CEA, CA19-9 and AFP. Liquid diet with Ensure for protein. Pt may need Diagnostic laparoscopy with possible J-tube placement for nutrition; however, this is something that will need to be discussed with family and really should wait on pathology and labs. Supervisory-Addendum Brief Verification & Attestation Participated in pt care: history, MDM, physical Personally performed: exam, history, MDM, supervision of care Care discussed with: Medical Student Procedures: n/a Verification and Attestation of Medical Student E/M Service A medical student performed and documented this service. I then reviewed and verified all information documented by the medical student and made modifications to such information, when appropriate. I personally performed a physical exam, medical decision making and then discussed any differences between the notes and made revisions as necessary to create one note. Juancho Mitchell , 06/03/22 , 12:41 JOHN HARRIS Jun 03, 2022 07:23 JUANCHO MITCHELL DO Jun 03, 2022 12:41
[2022-06-03] MEDS: SENNOSIDES 8.6 MG (SENOKOT) TAB PO SCH ×2 (08:00→22:23)
[2022-06-03] MEDS: DOCUSATE SODIUM 100 MG (COLACE) CAP PO SCH ×2 (08:00→22:23)
--- NOTE | 2022-06-03 08:13 | Tele-ICU Progress Note ---
Subjective Date Seen by a Provider: Jun 03, 2022 Time Seen by a Provider: 08:08 Subjective/Events-last exam respiratory insufficiency due to COPD. Admitted with hypovolemic shock, possible gastric tumor causing outlet obst Had EGD yesterday and a ? duodenal mass was biopsied, await pathology CXR shows hyperinflation, unchanged with small pleural effusion on right, small basilar pulmonary opacities WBC has jumped up to 15, was 6, not on steroids On NC 3 lpm with SpO2 100# Still on IV Levo @ 0.05 Was on IV Cardizem for a fib, V rate about 96, WIll get IV digoxin today Sepsis Event Evaluation Height, Weight, BMI Height: 5'6.00" Weight: 180lbs. oz. 81.257047xf; 28.90 BMI Method:Stated Focused Exam Lactate Level 05/31/22 12:42: Lactic Acid Level 2.48*H 05/31/22 15:16: Lactic Acid Level 1.52 Exam Exam Patient acknowledged, consented, and participated in this virtual visit which was conducted using real time audio/video Vital Signs Date Time Temp Pulse Resp B/P (MAP) Pulse Ox O2 Delivery O2 Flow Rate FiO2 06/03/22 08:00 36.3 06/03/22 08:00 89 21 105/56 (72) 100 Nasal Cannula 3.00 06/03/22 07:20 105 06/03/22 07:00 93 23 106/57 (73) 100 Nasal Cannula 3.00 06/03/22 06:00 91 22 105/58 (65) 100 Nasal Cannula 3.00 06/03/22 05:00 93 22 104/55 (69) 100 Nasal Cannula 3.00 06/03/22 04:00 109 25 120/61 (82) 99 Nasal Cannula 3.00 06/03/22 04:00 99 Room Air 06/03/22 03:54 36.5 06/03/22 03:30 102 28 116/62 (87) 100 Nasal Cannula 3.00 06/03/22 03:15 98 88/46 06/03/22 02:27 96 Nasal Cannula 3.00 06/03/22 02:00 108 28 103/54 (75) 100 Nasal Cannula 3.00 06/03/22 01:00 98 28 102/48 (71) 99 Nasal Cannula 3.00 06/03/22 01:00 98 06/03/22 00:04 36.9 06/03/22 00:00 96 28 99/50 (68) 100 Nasal Cannula 3.00 06/03/22 00:00 99 Room Air 06/02/22 23:00 92 21 98/71 (81) 99 Nasal Cannula 3.00 06/02/22 22:00 98 26 109/53 (69) 98 Nasal Cannula 3.00 06/02/22 21:00 99 22 102/50 (69) 100 Nasal Cannula 3.00 06/02/22 20:00 36.5 06/02/22 20:00 96 29 109/58 (80) 97 Nasal Cannula 3.00 06/02/22 19:58 99 Room Air 06/02/22 19:08 94 Nasal Cannula 3.00 06/02/22 19:00 131 06/02/22 19:00 131 29 127/95 (107) 94 Nasal Cannula 3.00 06/02/22 18:00 161 131/83 (99) 94 Nasal Cannula 3.00 06/02/22 17:00 120 26 124/70 (88) 97 Nasal Cannula 3.00 06/02/22 16:50 138 06/02/22 16:03 36.4 150 93 32 06/02/22 16:00 99 Room Air 06/02/22 16:00 125 28 106/60 (75) 97 Nasal Cannula 3.00 06/02/22 16:00 35.9 06/02/22 15:00 142 27 106/71 (83) 92 Nasal Cannula 3.00 06/02/22 14:00 130 24 108/80 (89) 97 Room Air 06/02/22 13:35 139 24 100 Room Air 06/02/22 13:30 146 24 100 OxyMask 4.00 06/02/22 13:25 118 24 100 OxyMask 10.00 06/02/22 13:00 94 19 109/59 (76) 100 Room Air 06/02/22 12:39 98 06/02/22 12:36 98 06/02/22 12:00 99 Room Air 06/02/22 12:00 100 18 100/57 (71) 100 Room Air 06/02/22 12:00 36.4 06/02/22 11:00 105 20 106/60 (75) 95 Room Air 06/02/22 10:00 92 27 98/58 (71) 100 Room Air 06/02/22 09:00 96 21 96/72 (80) 100 Room Air I & O 06/03/22 07:00 Intake Total 450 ml Output Total 1075 ml Balance -625 ml Height & Weight Height: 5'6.00" Weight: 180lbs. oz. 81.158681dk; 28.90 BMI Method:Stated General Appearance: No Apparent Distress, WD/WN, Chronically ill, Thin HEENT: PERRL/EOMI, Moist Mucous Membranes Neck: Non Tender, Supple Respiratory: Lungs Clear, Rhonci, Other (some rhonchi LLL) Cardiovascular: Systolic Murmur, Irregularly Irregular, Tachycardia Capillary Refill: Less Than 3 Seconds Peripheral Pulses: 2+ Dorsalis Pedis (R), 2+ Left Dors-Pedis (L), 2+ Radial Pulses (R), 2+ Radial Pulses (L) Gastrointestinal: normal bowel sounds, non tender, soft; No hernia; other (passing gas, some in RUQ and LUQ, mild) Extremity: No Calf Tenderness, No Pedal Edema Neurologic/Psychiatric: Alert, Oriented x3, Normal Mood/Affect Skin: Cool, Other (multiple bruises on upper extremity) Lymphatic: No Adenopathy (cervical, axillary) Results Lab Laboratory Tests 06/02/22 04:07 06/03/22 04:15 Assessment/Plan Assessment/Plan Continue present managment for COPD, await results of EGD biopsy, continue on albuterol, complete IV Rocephin Will start IV digoxin for a fib, Critical Care: Critically Ill Patient Time spent with patient (mins): 30 ARMANDO CAAL MD Jun 03, 2022 08:13
--- NOTE | 2022-06-03 09:04 | Cardiology Progress Note ---
Subjective Date Seen by Provider: Jun 03, 2022 Time Seen by Provider: 09:02 Subjective/Events-last exam Patient was seen at bedside, laying down comfortably Had an episode of hypotension last night then she was started on Levophed Review of Systems General: No Chills, No Night Sweats; Fatigue, Malaise; No Appetite, No Other HEENT: No Head Aches, No Visual Changes, No Eye Pain, No Ear Pain, No Dysphasia, No Sinus Congestion, No Post Nasal Drip, No Sore Throat, No Other Pulmonary: No Dyspnea, No Cough, No Pleuritic Chest Pain, No Other Cardiovascular: No: Chest Pain, Palpitations, Orthopnea, Paroxysmal Noc. Dyspnea, Edema, Lt Headedness, Other Focused Exam Lactate Level 05/31/22 12:42: Lactic Acid Level 2.48*H 05/31/22 15:16: Lactic Acid Level 1.52 Objective-Cardiology Exam Last Set of Vital Signs Vital Signs 06/02/22 16:03 FiO2 32 I&O Intake and Output 06/03/22 00:00 Intake Total 250 ml Output Total 1055 ml Balance -805 ml Intake Oral 150 ml IV Total 100 ml Output Urine Total 1055 ml General: Alert, Oriented X3, Cooperative HEENT: Atraumatic, PERRLA Neck: Supple, No JVD, No Thyromegaly Lungs: Clear to Auscultation, Normal Air Movement Heart: Normal S1, Normal S2, No Murmurs, Other (Atrial fibrillation) Abdomen: Normal Bowel Sounds, Soft, No Hepatosplenomegaly, No Masses Extremities: No Clubbing, No Cyanosis, No Edema, Normal Pulses, No Tenderness/Swelling Skin: No Rashes, No Breakdown, No Significant Lesion Neuro: Normal Speech Psych/Mental Status: Mental Status NL, Mood NL Results Lab Laboratory Tests 06/03/22 04:15 A/P-Cardiology Admission Diagnosis Hypotensive shock Atrial fibrillation Gastric tumor UTI Assessment/Plan Hypotensive shock, most probably hypovolemic shock due to poor oral intake. Started on Levophed last night Blood pressure is more stable at this point, recommend trying to wean her off t he drip. Atrial fibrillation, borderline tachycardia History of chronic atrial fibrillation followed by a sanforizer at [facility]. Had transient episode of tachycardia, did not tolerate Cardizem drip I will try digoxin and evaluate tolerance and response 2D echo was done on June 01, 2022 showing normal LV size with a EF 55%, pulmonary hypertension with PA pressure 40 to 45 mmHg, moderate mitral regurgitation, mild aortic valve stenosis No recent cardiac work-up to evaluate for any ischemic heart disease Patient had extensive family history, atrial fibrillation, was scheduled for a stress test on June 06 which was canceled. Currently asymptomatic. Nausea and loss of appetite Gastric/antral thickening with questionable mets. Dr. Mitchell consulted for possible endoscopy. Pleural effusion, ascites, continue with IV fluid for now and monitor. UTI. Received antibiotic Strong family history of heart disease. Preoperative cardiac evaluation, patient is considered at intermediate to high risk for perioperative cardiovascular complications, decision regarding surgery, risk versus benefit is deferred to the surgeon NARDA GARCIA MD Jun 03, 2022 09:04
[2022-06-03] MEDS: PANTOPRAZOLE 40 MG (PROTONIX) VIAL IV SCH (09:18)
[2022-06-03] MEDS ORDERED: DIGOXIN 0.25 MG/ML (LANOXIN) 2 ML AMP IV NR (09:30)
[2022-06-03] MEDS ORDERED: PIPERACILLIN SODIUM/TAZOBACTAM 4.5 GM in NS (IVPB) 100 ML IV NR ×2 (10:00→15:00)
[2022-06-03] MEDS ORDERED: CEPH500C PO (10:04)
[2022-06-03] MEDS ORDERED: ONDA8TAB13 PO (10:04)
[2022-06-03] MEDS ORDERED: FLUT1AER INH (10:04)
[2022-06-03] MEDS ORDERED: ACET-2267 PO (10:04)
--- NOTE | 2022-06-03 10:46 | Diagnostic Imaging Report ---
CHEST 1 VIEW, AP/PA ONLY Indication: Pleural effusion Comparison: 06/02/2022 Findings: No change in the small to moderate right pleural effusion. Right basilar pulmonary opacities are unchanged. No pneumothorax. Stable cardiac silhouette. Stable position of left IJ central venous catheter which is flipped upon itself and tip terminating in the left subclavian vein. Impression: 1. Unchanged [id number] right pleural effusion. 2. Stable position of left IJ central venous catheter with tip flipped upon itself and terminating in the subclavian vein. Dictated by: Dictated on workstation # [id number]
--- NOTE | 2022-06-03 12:52 | Progress Note - Hospitalist ---
AMEENA MORGAN 06/03/22 1252: Subjective HPI/CC On Admission Date Seen by Provider: Jun 03, 2022 Time Seen by Provider: 09:15 CC: Hypotension from hypovolemic shock HPI: This is an 81yoWF who presented to the ER with weakness and found to have hypotension from dehydration. She recently was placed on abx for UTI but she had no signs of sepsis. Abdominal pain prompted CT scan in ER and was found to have findings consistent with gastric outlet mass with mets so Dr Mitchell will have OAC held and perform scope with biopsies to confirm suspicion of cancer. Subjective/Events-last exam Patient states she is feeling better today and was able to get some sleep, which has previously been difficult due to her nausea. She reports she still had some nausea overnight and was coughing up some mucus. She denies any fever or chills. She reports the nausea has improved since her EGD where they removed a lot of the food that was inside her stomach. Otherwise she has no other questions or concerns at this time. Review of Systems Gastrointestinal: Nausea, Vomiting Focused Exam Lactate Level 05/31/22 15:16: Lactic Acid Level 1.52 06/03/22 10:23: Lactic Acid Level 1.11 Respiratory: Chest Non Tender, Lungs Clear, No Accessory Muscle Use, No Respiratory Distress, Crackles (coarse crackles noted bilaterally on lung bases), Wheezing (expiratory wheezing bilaterally lower lobes) Cardiovascular: Regular Rate, Rhythm, No Edema, No Gallop, No JVD, No Murmur, Normal Peripheral Pulses Peripheral Pulses: 2+ Dorsalis Pedis (R), 2+ Left Dors-Pedis (L), 2+ Radial Pulses (R), 2+ Radial Pulses (L) Skin: normal color, warm/dry Lactic Acid Level Laboratory Tests Test 06/03/22 10:23 Lactic Acid Level 1.11 MMOL/L (0.50-2.00) Objective Exam Vital Signs Vital Signs Date Time Temp Pulse Resp B/P (MAP) Pulse Ox O2 Delivery O2 Flow Rate FiO2 06/03/22 10:00 96 29 108/61 (77) 100 Nasal Cannula 2.00 06/03/22 08:00 36.3 06/02/22 16:03 32 Capillary Refill : Less Than 3 Seconds General Appearance: No Apparent Distress, WD/WN HEENT: PERRL/EOMI Neck: Full Range of Motion, Normal Inspection Respiratory: Lungs Clear, No Accessory Muscle Use, No Respiratory Distress, Crackles (coarse crackles bilaterally on lung bases), Wheezing (expiratory wheezing on bilateral lung bases) Cardiovascular: Regular Rate, Rhythm, No Edema, No Gallop, No JVD, No Murmur, Normal Peripheral Pulses Gastrointestinal: Normal Bowel Sounds, Non Tender, Soft Extremity: Normal Capillary Refill, Non Tender, No Pedal Edema Neurologic/Psychiatric: Alert, Oriented x3, No Motor/Sensory Deficits, Normal Mood/Affect Skin: Normal Color, Warm/Dry Results/Procedures Lab Laboratory Tests 06/03/22 04:15 Patient resulted labs reviewed. Assessment/Plan Assessment and Plan Assess & Plan/Chief Complaint Ms. Dariela Sher is a 81 y/o F with past medical history of anemia, atrial fibrillation, HLD, and recent UTI who was admitted for weakness and found to be hypotensive secondary to dehydration. She was found to have a likely duodenal mass causing gastric outlet obstruction on EGD and likely metastases on CT scan. Diagnosis/Problems Diagnosis/Problems (1) Duodenal mass Status: Acute Assessment & Plan: EGD on 06/02 with signs of duodenal mass, purplish gastric inflammation, and hiatal hernia. 5 biopsies were obtained during the EGD which are still pending. CA 19-9, CEA, and AFP are pending. - Follow up on biopsy results - Consider NG tube if nausea and vomiting persist - Consider TPN for nutrition (2) Gastric outlet obstruction Status: Acute Assessment & Plan: - Cont to monitor nausea and vomiting, consider NG tube placement (3) Leukocytosis Status: Acute Assessment & Plan: 06/03/22 WBC of 15.4, up from 6.6 on 06/02. Patient denies fevers or chills. Some coarse crackles on lung auscultation. On EGD, noted to have some food particles in the trachea which were removed, but concern for aspiration pneumonia. Procal of 1.07, LA 1.11. 06/03 CXR with unchanged [id number] R pleural effusion, no obvious consolidation or increase in infiltrates. - Blood cultures pending - Start Zosyn 4.5 mg IV q8 hours - Cont Ceftriaxone 100 mls/hr daily (4) Generalized weakness Status: Chronic Assessment & Plan: - PT/OT ordered (5) Hypotension Status: Acute Assessment & Plan: Pt was hypotensive overnight to 88/46. - Cont Norepinephrine 11.25 ml/hr - Cont Lactated Ringers at 100ml/hr Qualifiers: Qualified Codes: I95.9 - Hypotension, unspecified (6) Atrial fibrillation with rapid ventricular response Status: Chronic Assessment & Plan: - Started on Digoxin 0.5 mg for loading dose - Start Digoxin 0.125 mg daily on 06/04 - Held Diltiazem (7) Dehydration Status: Resolved (8) Weight loss Status: Chronic Clinical Quality Measures DVT/VTE Risk/Contraindication: Contraindications-Pharm: Other *list below* Other: gastric cancer needs EGD STELLA GUNN DO 06/04/22 0522: Subjective Subjective/Events-last exam Patient still hypotensive Requires ICU stay to continue Overall very frail status Obtaining DPOA papers Review of Systems General: Fatigue, Malaise Objective Exam General Appearance: No Apparent Distress, WD/WN, Chronically ill, Other (Frail and pale) Respiratory: No Accessory Muscle Use, No Respiratory Distress, Crackles (coarse crackles bilaterally on lung bases), Wheezing (expiratory wheezing on bilateral lung bases) Cardiovascular: Regular Rate, Rhythm Neurologic/Psychiatric: Alert, Oriented x3, No Motor/Sensory Deficits, Normal Mood/Affect Assessment/Plan Assessment and Plan Assess & Plan/Chief Complaint Treat pneumonia empirically Poor prognosis Supervisory-Addendum Brief Verification & Attestation Participated in pt care: history, MDM, physical Personally performed: exam, history, MDM, supervision of care Care discussed with: Medical Student Procedures: n/a Results interpretation: Verified all documentation Verification and Attestation of Medical Student E/M Service A medical student performed and documented this service in my presence. I reviewed and verified all information documented by the medical student and made modifications to such information, when appropriate. I personally performed the physical exam and medical decision making. Stella Gunn Jun 04, 2022,05:21 AMEENA MORGAN Jun 03, 2022 12:52 STELLA GUNN DO Jun 04, 2022 05:22
[2022-06-03] MEDS: dilTIAZem DRIP PRE-MIX 125 ML IV SCH (16:00)
--- NOTE | 2022-06-03 18:38 | Tele-ICU Progress Note ---
Subjective Date Seen by a Provider: Jun 03, 2022 Time Seen by a Provider: 18:36 Subjective/Events-last exam called for sudden change in neuro exam, with new aphasia and right sided weakness, will get stat CT head Sepsis Event Evaluation Height, Weight, BMI Height: 5'6.00" Weight: 180lbs. oz. 81.272535lw; 28.90 BMI Method:Stated Focused Exam Lactate Level 06/03/22 10:23: Lactic Acid Level 1.11 Exam Exam Patient acknowledged, consented, and participated in this virtual visit which was conducted using real time audio/video Vital Signs Date Time Temp Pulse Resp B/P (MAP) Pulse Ox O2 Delivery O2 Flow Rate FiO2 06/03/22 17:29 101 108/59 06/03/22 17:00 95 18 107/55 (72) 100 Nasal Cannula 2.00 06/03/22 16:00 107 22 93/43 (60) 100 Nasal Cannula 2.00 06/03/22 16:00 88 108/52 06/03/22 16:00 Nasal Cannula 2.00 06/03/22 15:34 36.6 99 Nasal Cannula 2.00 06/03/22 15:00 88 23 108/52 (70) 100 Nasal Cannula 2.00 06/03/22 14:15 98 25 107/68 (81) 100 Nasal Cannula 2.00 06/03/22 14:15 101 107/68 06/03/22 13:02 112 06/03/22 12:45 104 21 116/71 (86) 100 Nasal Cannula 2.00 06/03/22 12:00 Nasal Cannula 2.00 06/03/22 11:45 103 23 98/47 (64) 100 Nasal Cannula 2.00 06/03/22 11:00 104 20 96/57 (70) 94 Nasal Cannula 2.00 06/03/22 10:00 96 29 108/61 (77) 100 Nasal Cannula 2.00 06/03/22 10:00 96 29 108/61 (77) 100 Nasal Cannula 2.00 06/03/22 09:45 100 Nasal Cannula 3.00 06/03/22 09:00 105 23 106/57 (73) 100 Nasal Cannula 3.00 06/03/22 09:00 105 23 106/57 (73) 100 Nasal Cannula 3.00 06/03/22 08:00 36.3 06/03/22 08:00 89 21 105/56 (72) 100 Nasal Cannula 3.00 06/03/22 08:00 89 21 105/56 (72) 100 Nasal Cannula 3.00 06/03/22 08:00 99 Room Air 06/03/22 07:20 105 06/03/22 07:20 105 06/03/22 07:00 93 23 106/57 (73) 100 Nasal Cannula 3.00 06/03/22 07:00 93 23 106/57 (73) 100 Nasal Cannula 3.00 06/03/22 06:00 91 22 105/58 (65) 100 Nasal Cannula 3.00 06/03/22 05:00 93 22 104/55 (69) 100 Nasal Cannula 3.00 06/03/22 04:00 109 25 120/61 (82) 99 Nasal Cannula 3.00 06/03/22 04:00 99 Room Air 06/03/22 03:54 36.5 06/03/22 03:30 102 28 116/62 (87) 100 Nasal Cannula 3.00 06/03/22 03:15 98 88/46 06/03/22 02:27 96 Nasal Cannula 3.00 06/03/22 02:00 108 28 103/54 (75) 100 Nasal Cannula 3.00 06/03/22 01:00 98 28 102/48 (71) 99 Nasal Cannula 3.00 06/03/22 01:00 98 06/03/22 00:04 36.9 06/03/22 00:00 96 28 99/50 (68) 100 Nasal Cannula 3.00 06/03/22 00:00 99 Room Air 06/02/22 23:00 92 21 98/71 (81) 99 Nasal Cannula 3.00 06/02/22 22:00 98 26 109/53 (69) 98 Nasal Cannula 3.00 06/02/22 21:00 99 22 102/50 (69) 100 Nasal Cannula 3.00 06/02/22 20:00 36.5 06/02/22 20:00 96 29 109/58 (80) 97 Nasal Cannula 3.00 06/02/22 19:58 99 Room Air 06/02/22 19:08 94 Nasal Cannula 3.00 06/02/22 19:00 131 06/02/22 19:00 131 29 127/95 (107) 94 Nasal Cannula 3.00 I & O 06/03/22 07:00 Intake Total 450 ml Output Total 1075 ml Balance -625 ml Height & Weight Height: 5'6.00" Weight: 180lbs. oz. 81.919647fc; 28.90 BMI Method:Stated General Appearance: No Apparent Distress, WD/WN HEENT: PERRL/EOMI Neck: Full Range of Motion, Normal Inspection Respiratory: Lungs Clear, No Accessory Muscle Use, No Respiratory Distress, Crackles (coarse crackles bilaterally on lung bases), Wheezing (expiratory wheezing on bilateral lung bases) Cardiovascular: Regular Rate, Rhythm, No Edema, No Gallop, No JVD, No Murmur, Normal Peripheral Pulses Capillary Refill: Less Than 3 Seconds Peripheral Pulses: 2+ Dorsalis Pedis (R), 2+ Left Dors-Pedis (L), 2+ Radial Pulses (R), 2+ Radial Pulses (L) Gastrointestinal: non tender, soft; No hernia Extremity: Normal Capillary Refill, Non Tender, No Pedal Edema Neurologic/Psychiatric: Alert, Oriented x3, No Motor/Sensory Deficits, Normal Mood/Affect Skin: Normal Color, Warm/Dry Lymphatic: No Adenopathy (cervical, axillary) Results Lab Laboratory Tests 06/02/22 04:07 06/03/22 04:15 Assessment/Plan Assessment/Plan Possible new CVA, will get stat CT head Critical Care: Critically Ill Patient ARMANDO CAAL MD Jun 03, 2022 18:38
--- NOTE | 2022-06-03 19:01 | Diagnostic Imaging Report ---
PROCEDURE: CT head wo r/o stroke. TECHNIQUE: Multiple contiguous axial images were obtained through the brain without the use of intravenous contrast. Auto Exposure Controls were utilized during the CT exam to meet ALARA standards for radiation dose reduction. INDICATION: Left-sided weakness. Left facial droop. Slurred speech. COMPARISON: None FINDINGS: [id number] generalized parenchymal volume loss. No CT evidence of a territorial infarction. Intracranial vascular calcifications. No intracranial hemorrhage, mass effect, hydrocephalus or extra-axial fluid collections. Paranasal sinuses and mastoids are unremarkable. No acute osseous findings. IMPRESSION: No acute intracranial CT findings. Dictated by: Dictated on workstation # [id number]
[2022-06-03] MEDS: PIPERACILLIN SODIUM/TAZOBACTAM 4.5 GM in NS (IVPB) 100 ML IV SCH (21:01)
[2022-06-03 22:16] LABS: HEMATOCRIT 30 % (35-52); HEMOGLOBIN 9.5 g/dL (11.5-16.0); MEAN CORPUSCULAR HEMOGLOBIN 31 pg (25-34); MEAN CORPUSCULAR HGB CONC 31 g/dL (32-36); MEAN CORPUSCULAR VOLUME 98 fL (80-99); MEAN PLATELET VOLUME 9.6 fL (9.0-12.2); PLATELET COUNT 202 10^3/uL (130-400)
[2022-06-03 22:30] LABS: INR 1.4 (0.8-1.4); PROTHROMBIN TIME PATIENT 17.6 SEC (12.2-14.7)
[2022-06-03] MEDS: HEParin 1000 UNIT/ML (10ML VIAL) FOR BOLUS IV PRN (22:43)
[2022-06-03] MEDS: HEParin DRIP 25000 UNIT/500ML 500 ML IV SCH (22:44)
[2022-06-04] MEDS: RT-ALBUTEROL SULF 2.5 MG/3 ML PRE-MIX VIAL INH SCH ×4 (03:03→21:31)
[2022-06-04 03:24] LABS: ALBUMIN 2.4 GM/DL (3.2-4.5)
[2022-06-04 03:25] LABS: POTASSIUM 3.7 MMOL/L (3.6-5.0)
[2022-06-04 03:26] LABS: CALCIUM 7.1 MG/DL (8.5-10.1)
[2022-06-04 03:27] LABS: TOTAL PROTEIN 4.5 GM/DL (6.4-8.2)
[2022-06-04] MEDS: HEParin 1000 UNIT/ML (10ML VIAL) FOR BOLUS IV PRN ×2 (03:28→23:36)
[2022-06-04 03:29] LABS: BILIRUBIN,TOTAL 0.5 MG/DL (0.1-1.0)
[2022-06-04 03:30] LABS: PHOSPHORUS 1.3 MG/DL (2.3-4.7)
[2022-06-04 03:31] LABS: CREATININE SERUM 0.72 MG/DL (0.60-1.30)
[2022-06-04 03:33] LABS: MAGNESIUM 1.8 MG/DL (1.6-2.4)
[2022-06-04] MEDS: MAGNESIUM 1 GM/100 ML IVPB 100 ML IV SCH (03:51)
[2022-06-04] MEDS: POTASSIUM CL 10MEQ/50ML IVPB 50 ML IV SCH (03:51)
[2022-06-04] MEDS: KCL 20 MEQ TAB (K-DUR) PO SCH (03:52)
[2022-06-04] MEDS: NS IV 1000 ML 1,000 ML IV SCH ×3 (03:52→17:53)
[2022-06-04] MEDS: PIPERACILLIN SODIUM/TAZOBACTAM 4.5 GM in NS (IVPB) 100 ML IV SCH ×3 (05:47→20:51)
[2022-06-04] MEDS: LEVOTHYROXINE 112 MCG (LEVOTHROID) TAB PO SCH (05:47)
[2022-06-04] MEDS: DOCUSATE SODIUM 100 MG (COLACE) CAP PO SCH ×2 (08:01→20:35)
[2022-06-04] MEDS: PANTOPRAZOLE 40 MG (PROTONIX) VIAL IV SCH (08:01)
[2022-06-04] MEDS: SENNOSIDES 8.6 MG (SENOKOT) TAB PO SCH ×2 (08:01→20:35)
[2022-06-04] MEDS: DIGOXIN 0.25 MG/ML (LANOXIN) 2 ML AMP IV SCH (08:03)
--- NOTE | 2022-06-04 08:35 | Cardiology Progress Note ---
Subjective Date Seen by Provider: Jun 04, 2022 Time Seen by Provider: 08:34 Subjective/Events-last exam Patient was seen at bedside, laying down comfortably, feeling better Other episodes of transient slurred speech and weakness, suspected TIA, CT scan was negative Review of Systems General: No Chills, No Night Sweats, No Fatigue, No Malaise, No Appetite, No Other HEENT: No Head Aches, No Visual Changes, No Eye Pain, No Ear Pain, No Dysphasia, No Sinus Congestion, No Post Nasal Drip, No Sore Throat, No Other Pulmonary: No Dyspnea, No Cough, No Pleuritic Chest Pain, No Other Cardiovascular: No: Chest Pain, Palpitations, Orthopnea, Paroxysmal Noc. Dyspnea, Edema, Lt Headedness, Other Focused Exam Lactate Level 06/03/22 10:23: Lactic Acid Level 1.11 Objective-Cardiology Exam Last Set of Vital Signs Vital Signs 06/02/22 06/04/22 06/04/22 16:03 07:37 08:00 Temp 36.1 Pulse 96 Resp 19 B/P (MAP) 103/52 (69) Pulse Ox 100 O2 Delivery Nasal Cannula O2 Flow Rate 2.00 FiO2 32 I&O Intake and Output 06/04/22 00:00 Intake Total 425 ml Output Total 735 ml Balance -310 ml Intake Oral 425 ml Output Urine Total 735 ml General: Alert, Oriented X3, Cooperative HEENT: Atraumatic, PERRLA Neck: Supple, No JVD, No Thyromegaly Lungs: Clear to Auscultation, Normal Air Movement Heart: Normal S1, Normal S2, No Murmurs, Other (Atrial fibrillation) Abdomen: Normal Bowel Sounds, Soft, No Hepatosplenomegaly, No Masses Extremities: No Clubbing, No Cyanosis, No Edema, Normal Pulses, No Tenderness/Swelling Skin: No Rashes, No Breakdown, No Significant Lesion Neuro: Normal Speech Psych/Mental Status: Mental Status NL, Mood NL Results Lab Laboratory Tests 06/03/22 22:10 06/04/22 02:45 A/P-Cardiology Admission Diagnosis Hypotensive shock Atrial fibrillation Gastric tumor UTI Assessment/Plan Hypotensive shock, most probably hypovolemic shock due to poor oral intake. Started on Levophed last night Blood pressure is more stable at this point, recommend trying to wean her off the drip. Atrial fibrillation, borderline tachycardia History of chronic atrial fibrillation followed by a religious education coordinator at [facility]. Had transient episode of tachycardia, did not tolerate Cardizem drip Tolerating digoxin well Status post TIA occurred on June 03, 2022 slurred speech and weakness. CT of the head without contrast was negative. I started on heparin drip, continue to monitor H&H [id number] score 4, has been off anticoagulation since admission, started on heparin drip 2D echo was done on June 01, 2022 showing normal LV size with a EF 55%, pulmonary hypertension with PA pressure 40 to 45 mmHg, moderate mitral regurgitation, mild aortic valve stenosis No recent cardiac work-up to evaluate for any ischemic heart disease Patient had extensive family history, atrial fibrillation, was scheduled for a stress test on June 06 which was canceled. Currently asymptomatic. Nausea and loss of appetite Gastric/antral thickening with questionable mets. Dr. Mitchell consulted for possible endoscopy. Pleural effusion, ascites, continue with IV fluid for now and monitor. UTI. Received antibiotic Strong family history of heart disease. Preoperative cardiac evaluation, patient is considered at intermediate to high risk for perioperative cardiovascular complications, decision regarding surgery, risk versus benefit is deferred to the surgeon NARDA GARCIA MD Jun 04, 2022 08:35
--- NOTE | 2022-06-04 08:45 | Diagnostic Imaging Report ---
INDICATION: Pleural effusion Frontal chest obtained at 0425 a.m. compared to yesterday. Heart is mildly enlarged. Central vascular congestion again noted. No change in right pleural effusion compared to yesterday. There is no pneumothorax. Left IJ central line remains looped over the left innominate vein. IMPRESSION: Stable appearance compared to yesterday. No change in right pleural effusion with passive atelectasis versus infiltrate in the right base. Left IJ catheter remains looped over the left innominate vein. Dictated by: Dictated on workstation # [id number]
[2022-06-04] MEDS: NOREPINEPHRINE 8 MG/250 ML 250 ML IV SCH (09:00)
--- NOTE | 2022-06-04 09:09 | Tele-ICU Progress Note ---
Subjective Date Seen by a Provider: Jun 04, 2022 Subjective/Events-last exam This virtual visit was conducted using real time audio/video. Thank you for asking us to see this patient for respiratory insufficiency due to COPD. Admitted with hypovolemic shock, possible gastric tumor causing outlet obst. S/P EGD, path. pending. Pressors stopped 06/03. Resolved aphasia/ R sided weakness. PE: Pale VSS.HR 90-110 irreg. O2 sat 100% on 2 LPM. HEENT: No obvious masses, adenopathy or JVD. Chest: Slightly coarse on auscultation. CV: Irreg. S1 S2 No murmur or added sounds. Abd: Non-tender. Bowel sounds Y. : Unremarkable. [place] Y. CONTRACT IMPLEMENTATION ANALYST/psychiatric: Grossly intact. No obvious focal findings. Extremities: No edema. Capillary refill < 3 seconds. Skin: unremarkable. Results: Decreased Hb 9.5, K 3.5, Alb 2.4. CXR: Hyperinflated, subpulmonic eff./elev L hemidiaph. Consider CT chest. CTH: no acute findings. Available chart/ vitals / labs / images reviewed. Video assessment done using teleICU camera, rest of exam as per RN. A/P: Respiratory insufficiency: Continue present management with O2, PRN Alb. Monitor for increasing oxygenation needs and/or need for intubation. Critical Care: critically ill patient. Cont. PPI, abx, synth., dig. Dilt held EGD path. results pending. Discussed with ROHIT Gay. Asked RN to reach out to eICU if any questions or concerns later. Time spent with patient/coordination of care with other health professionals (mins): 28 Sepsis Event Evaluation Height, Weight, BMI Height: 5'6.00" Weight: 180lbs. oz. 81.575250lt; 29.41 BMI Method:Stated Focused Exam Lactate Level 06/03/22 10:23: Lactic Acid Level 1.11 Exam Exam Patient acknowledged, consented, and participated in this virtual visit which was conducted using real time audio/video Vital Signs Date Time Temp Pulse Resp B/P (MAP) Pulse Ox O2 Delivery O2 Flow Rate FiO2 06/04/22 08:00 96 19 103/52 (69) 100 Nasal Cannula 2.00 06/04/22 07:37 36.1 06/04/22 07:26 98 Nasal Cannula 3.00 06/04/22 07:08 92 06/04/22 07:00 91 18 93/60 (71) 100 Nasal Cannula 2.00 06/04/22 06:00 92 19 103/57 (69) 100 Nasal Cannula 2.00 06/04/22 05:00 104 22 107/55 (74) 99 Nasal Cannula 2.00 06/04/22 04:05 Nasal Cannula 2.00 06/04/22 04:00 101 19 98/50 (70) 100 Nasal Cannula 2.00 06/04/22 03:03 100 Nasal Cannula 3.00 06/04/22 03:00 92 19 97/54 (69) 100 Nasal Cannula 2.00 06/04/22 02:00 99 17 101/61 (72) 100 Nasal Cannula 2.00 06/04/22 01:00 98 18 99/49 (66) 100 Nasal Cannula 2.00 06/04/22 01:00 98 06/04/22 00:00 94 15 99/51 (69) 100 Nasal Cannula 2.00 06/03/22 23:59 Nasal Cannula 2.00 06/03/22 23:00 101 19 102/51 (67) 100 Nasal Cannula 2.00 06/03/22 22:00 105 21 111/52 (71) 100 Nasal Cannula 2.00 06/03/22 21:30 98 21 121/57 (76) 100 Nasal Cannula 2.00 06/03/22 21:16 100 Nasal Cannula 3.00 06/03/22 21:15 109 20 100/64 (76) 100 Nasal Cannula 2.00 06/03/22 21:00 101 18 88/61 (68) 100 Nasal Cannula 2.00 06/03/22 20:45 102 31 110/68 (79) 100 Nasal Cannula 2.00 06/03/22 20:30 105 23 108/63 (78) 100 Nasal Cannula 2.00 06/03/22 20:15 109 25 101/66 (73) 100 Nasal Cannula 2.00 06/03/22 20:00 104 22 114/69 (74) 100 Nasal Cannula 2.00 06/03/22 19:55 Nasal Cannula 2.00 06/03/22 19:45 105 24 142/111 (128) 100 Nasal Cannula 2.00 06/03/22 19:30 113 18 134/90 (101) 94 Nasal Cannula 2.00 06/03/22 19:16 108 06/03/22 19:16 113 21 130/84 (97) 100 Nasal Cannula 2.00 06/03/22 17:29 101 108/59 06/03/22 17:00 95 18 107/55 (72) 100 Nasal Cannula 2.00 06/03/22 16:00 107 22 93/43 (60) 100 Nasal Cannula 2.00 06/03/22 16:00 88 108/52 06/03/22 16:00 Nasal Cannula 2.00 06/03/22 15:34 36.6 99 Nasal Cannula 2.00 06/03/22 15:00 88 23 108/52 (70) 100 Nasal Cannula 2.00 06/03/22 14:15 98 25 107/68 (81) 100 Nasal Cannula 2.00 06/03/22 14:15 101 107/68 06/03/22 13:02 112 06/03/22 12:45 104 21 116/71 (86) 100 Nasal Cannula 2.00 06/03/22 12:00 Nasal Cannula 2.00 06/03/22 11:45 103 23 98/47 (64) 100 Nasal Cannula 2.00 06/03/22 11:00 104 20 96/57 (70) 94 Nasal Cannula 2.00 06/03/22 10:00 96 29 108/61 (77) 100 Nasal Cannula 2.00 06/03/22 10:00 96 29 108/61 (77) 100 Nasal Cannula 2.00 06/03/22 09:45 100 Nasal Cannula 3.00 I & O 06/04/22 07:00 Intake Total 325 ml Output Total 810 ml Balance -485 ml Height & Weight Height: 5'6.00" Weight: 180lbs. oz. 81.342084ia; 29.41 BMI Method:Stated General Appearance: No Apparent Distress, WD/WN, Chronically ill, Other (Frail and pale) HEENT: PERRL/EOMI Neck: Full Range of Motion, Normal Inspection Respiratory: No Accessory Muscle Use, No Respiratory Distress, Crackles (coarse crackles bilaterally on lung bases), Wheezing (expiratory wheezing on bilateral lung bases) Cardiovascular: Regular Rate, Rhythm Capillary Refill: Less Than 3 Seconds Peripheral Pulses: 2+ Dorsalis Pedis (R), 2+ Left Dors-Pedis (L), 2+ Radial Pulses (R), 2+ Radial Pulses (L) Gastrointestinal: non tender, soft; No hernia Extremity: Normal Capillary Refill, Non Tender, No Pedal Edema Neurologic/Psychiatric: Alert, Oriented x3, No Motor/Sensory Deficits, Normal Mood/Affect Skin: Normal Color, Warm/Dry Lymphatic: No Adenopathy (cervical, axillary) Results Lab Laboratory Tests 06/03/22 04:15 06/03/22 22:10 06/04/22 02:45 Assessment/Plan Assessment/Plan See free text. Critical Care: Critically Ill Patient AVNI LUBIN MD Jun 04, 2022 09:09
--- NOTE | 2022-06-04 09:30 | Progress Note - Surgery ---
JOHN HARRIS 06/04/22 0930: Subjective Date Seen by a Provider: Jun 04, 2022 Time Seen by a Provider: 09:25 Subjective/Events-last exam Patient is awake and resting comfortably in bed. Last night she had a TIA that resulted in some slurred speech and sudden right sided weakness. Non-contrast CT Head from yesterday showed no acute intracranial findings. Today, patient is speaking without difficulty and states her facial droop and right sided weakness have resolved. She denies having any pain at present, but is still having some nausea and vomiting of clear liquids at times. She states Zoan is helping with that. Chest XR stable when compared to previous. Review of Systems General: No Chills; Fatigue Pulmonary: Dyspnea, Cough (with yellow sputum production) Cardiovascular: No: Chest Pain, Palpitations Gastrointestinal: Nausea, Vomiting; No: Abdominal Pain Neurological: No: Weakness, Change in speech Focused Exam Lactate Level 06/03/22 10:23: Lactic Acid Level 1.11 Objective Exam Vital Signs Date Time Temp Pulse Resp B/P (MAP) Pulse Ox O2 Delivery O2 Flow Rate FiO2 06/04/22 08:00 96 19 103/52 (69) 100 Nasal Cannula 2.00 06/04/22 08:00 Nasal Cannula 2.00 06/04/22 07:37 36.1 06/04/22 07:26 98 Nasal Cannula 3.00 06/04/22 07:08 92 06/04/22 07:00 91 18 93/60 (71) 100 Nasal Cannula 2.00 06/04/22 06:00 92 19 103/57 (69) 100 Nasal Cannula 2.00 06/04/22 05:00 104 22 107/55 (74) 99 Nasal Cannula 2.00 06/04/22 04:05 Nasal Cannula 2.00 06/04/22 04:00 101 19 98/50 (70) 100 Nasal Cannula 2.00 06/04/22 03:03 100 Nasal Cannula 3.00 06/04/22 03:00 92 19 97/54 (69) 100 Nasal Cannula 2.00 06/04/22 02:00 99 17 101/61 (72) 100 Nasal Cannula 2.00 06/04/22 01:00 98 18 99/49 (66) 100 Nasal Cannula 2.00 06/04/22 01:00 98 06/04/22 00:00 94 15 99/51 (69) 100 Nasal Cannula 2.00 06/03/22 23:59 Nasal Cannula 2.00 06/03/22 23:00 101 19 102/51 (67) 100 Nasal Cannula 2.00 06/03/22 22:00 105 21 111/52 (71) 100 Nasal Cannula 2.00 06/03/22 21:30 98 21 121/57 (76) 100 Nasal Cannula 2.00 06/03/22 21:16 100 Nasal Cannula 3.00 06/03/22 21:15 109 20 100/64 (76) 100 Nasal Cannula 2.00 06/03/22 21:00 101 18 88/61 (68) 100 Nasal Cannula 2.00 06/03/22 20:45 102 31 110/68 (79) 100 Nasal Cannula 2.00 06/03/22 20:30 105 23 108/63 (78) 100 Nasal Cannula 2.00 06/03/22 20:15 109 25 101/66 (73) 100 Nasal Cannula 2.00 06/03/22 20:00 104 22 114/69 (74) 100 Nasal Cannula 2.00 06/03/22 19:55 Nasal Cannula 2.00 06/03/22 19:45 105 24 142/111 (128) 100 Nasal Cannula 2.00 06/03/22 19:30 113 18 134/90 (101) 94 Nasal Cannula 2.00 06/03/22 19:16 108 06/03/22 19:16 113 21 130/84 (97) 100 Nasal Cannula 2.00 06/03/22 17:29 101 108/59 06/03/22 17:00 95 18 107/55 (72) 100 Nasal Cannula 2.00 06/03/22 16:00 107 22 93/43 (60) 100 Nasal Cannula 2.00 06/03/22 16:00 88 108/52 06/03/22 16:00 Nasal Cannula 2.00 06/03/22 15:34 36.6 99 Nasal Cannula 2.00 06/03/22 15:00 88 23 108/52 (70) 100 Nasal Cannula 2.00 06/03/22 14:15 98 25 107/68 (81) 100 Nasal Cannula 2.00 06/03/22 14:15 101 107/68 06/03/22 13:02 112 06/03/22 12:45 104 21 116/71 (86) 100 Nasal Cannula 2.00 06/03/22 12:00 Nasal Cannula 2.00 06/03/22 11:45 103 23 98/47 (64) 100 Nasal Cannula 2.00 06/03/22 11:00 104 20 96/57 (70) 94 Nasal Cannula 2.00 06/03/22 10:00 96 29 108/61 (77) 100 Nasal Cannula 2.00 06/03/22 10:00 96 29 108/61 (77) 100 Nasal Cannula 2.00 06/03/22 09:45 100 Nasal Cannula 3.00 I & O 06/04/22 07:00 Intake Total 325 ml Output Total 810 ml Balance -485 ml Capillary Refill : Less Than 3 Seconds General Appearance: No Apparent Distress, WD/WN, Chronically ill, Other (Frail and pale) HEENT: PERRL/EOMI Neck: Full Range of Motion, Normal Inspection Respiratory: Lungs Clear, No Accessory Muscle Use, No Respiratory Distress, Cr ackles (coarse crackles bilaterally on lung bases), Wheezing (expiratory wheezing on bilateral lung bases) Cardiovascular: No Edema, Other (Atrial Fibrillation ) Peripheral Pulses: 2+ Dorsalis Pedis (R), 2+ Left Dors-Pedis (L), 2+ Radial Pulses (R), 2+ Radial Pulses (L) Gastrointestinal: non tender, soft; No hernia Extremity: Normal Capillary Refill, Non Tender, No Pedal Edema Neurologic/Psychiatric: Alert, Oriented x3, No Motor/Sensory Deficits, Normal Mood/Affect Skin: Normal Color, Warm/Dry Lymphatic: No Adenopathy (cervical, axillary) Results Lab Laboratory Tests 06/03/22 10:23: Lactic Acid Level 1.11 06/03/22 18:27: Glucometer 99 06/03/22 22:10: White Blood Count 10.0, Red Blood Count 3.08L, Hemoglobin 9.5L, Hematocrit 30L, Mean Corpuscular Volume 98, Mean Corpuscular Hemoglobin 31, Mean Corpuscular Hemoglobin Concent 31L, Red Cell Distribution Width 15.4H, Platelet Count 202, Mean Platelet Volume 9.6, Prothrombin Time 17.6H, INR Comment 1.4, Activated Partial Thromboplast Time 42H 06/04/22 02:45: Activated Partial Thromboplast Time 124*H, Sodium Level 140, Potassium Level 3.7, Chloride Level 111H, Carbon Dioxide Level 19L, Anion Gap 10, Blood Urea Nitrogen 12, Creatinine 0.72, Estimat Glomerular Filtration Rate 83, BUN/Cre atinine Ratio 17, Glucose Level 104, Calcium Level 7.1L, Corrected Calcium 8.4L, Phosphorus Level 1.3L, Magnesium Level 1.8, Total Bilirubin 0.5, Aspartate Amino Transf (AST/SGOT) 14, Alanine Aminotransferase (ALT/SGPT) 6, Alkaline Phosphatase 55, Total Protein 4.5L, Albumin 2.4L 06/04/22 06:20: Glucometer 79 Microbiology 05/31/22 MRSA Screen - Final, Complete MRSA not isolated 05/31/22 Urine Culture - Final, Complete NO GROWTH 05/31/22 Blood Culture - Preliminary, Resulted No growth Assessment/Plan Assessment/Plan Assessment/Plan Gastric/Antral thickening Malnutrition - poor PO intake TIA 06/03/22 Pleural Effusion Ascites Weight loss, N/V, Anemia UTI- no growth on culture Afib, HTN Continue zofran PRN for nausea and vomiting. Monitor hgb with labs. Urine culture completed and showed no growth. Nothing to do for pleural effusion and not sure significance of ascites. For HTN she will be started on IV meds. Results of CEA, CA19-9 and AFP are within normal values. Still awaiting pathology on biopsies that were collected previously. Liquid diet with Ensure for protein. Pt may need Diagnostic laparoscopy with possible J-tube placement for nutrition; this was something that was discussed with family. Daughter wants to wait on pathology and labs. Agreed with Cardiology to start Heparin drip given patient's recent TIA. Clinical Quality Measures DVT/VTE Risk/Contraindication: Contraindications-Pharm: Other *list below* Other: gastric cancer needs EGD JUANCHO MITCHELL DO 06/05/22 1342: Subjective Time Seen by a Provider: 11:54 Subjective/Events-last exam Pt seen and examined, she is still having trouble swallowing. Any time she takes liquids she gets nausea and vomiting. Had TIA yesterday, no residual symptoms today. Denies abominal pain. Review of Systems General: No Chills; Fatigue Pulmonary: Dyspnea, Cough (with yellow sputum production) Cardiovascular: Palpitations; No: Chest Pain Gastrointestinal: Nausea, Vomiting; No: Abdominal Pain Objective Exam General Appearance: No Apparent Distress, Chronically ill, Other (Frail and pale) HEENT: PERRL/EOMI Respiratory: Lungs Clear, No Accessory Muscle Use, No Respiratory Distress, Crackles (coarse crackles bilaterally on lung bases), Wheezing (expiratory wheezing on bilateral lung bases), Other (decreased breath sounds right) Cardiovascular: No Edema, No Murmur, Irregularly Irregular Gastrointestinal: non tender, soft; No hernia Neurologic/Psychiatric: Alert, Oriented x3 Skin: Pallor Assessment/Plan Assessment/Plan Assessment/Plan Gastric/Antral thickening Malnutrition - poor PO intake TIA 06/03/22 Pleural Effusion Ascites Weight loss, N/V, Anemia UTI- no growth on culture Afib, HTN Continue zofran PRN for nausea and vomiting. Monitor hgb with labs. Urine culture completed and showed no growth. Nothing to do for pleural effusion and not sure significance of ascites. For HTN she will be started on IV meds. Results of CEA, CA19-9 and AFP are within normal values. Still awaiting pathology on biopsies that were collected previously. Liquid diet with Ensure for protein. Pt may need Diagnostic laparoscopy with possible J-tube placement for nutrition; this was something that was discussed with family. Daughter wants to wait on pathology and labs. Agreed with Cardiology to start Heparin drip given patient's recent TIA. Will wait and see if thickening/swelling in stomach resolve or pt may need J-tube placement. Supervisory-Addendum Brief Verification & Attestation Participated in pt care: history, MDM, physical Personally performed: exam, history, MDM, supervision of care Care discussed with: Medical Student Procedures: n/a Verification and Attestation of Medical Student E/M Service A medical student performed and documented this service. I then reviewed and verified all information documented by the medical student and made modifications to such information, when appropriate. I personally performed a physical exam, medical decision making and then discussed any differences between the notes and made revisions as necessary to create one note. Juancho Mitchell , 06/05/22 , 13:42 JOHN HARRIS Jun 04, 2022 09:30 JUANCHO MITCHELL DO Jun 05, 2022 13:42
--- NOTE | 2022-06-04 11:39 | Progress Note - Hospitalist ---
AMEENA MORGAN 06/04/22 1139: Subjective HPI/CC On Admission Date Seen by Provider: Jun 04, 2022 Time Seen by Provider: 09:15 CC: Hypotension from hypovolemic shock HPI: This is an 81yoWF who presented to the ER with weakness and found to have hypotension from dehydration. She recently was placed on abx for UTI but she had no signs of sepsis. Abdominal pain prompted CT scan in ER and was found to have findings consistent with gastric outlet mass with mets so Dr Mitchell will have OAC held and perform scope with biopsies to confirm suspicion of cancer. Subjective/Events-last exam Patient is feeling well this morning. Last night she had an episode of aphasia and right sided weakness. She states she was aware during this incident and knew she was unable to talk, which was terrifying to her. She reports those symptoms have resolved and she is feeling back to her baseline. She reports no residual weakness. This morning she reports no pain or discomfort. She has no questions besides wondering what the results of the biopsy are, but discussed that we do not know yet. She reports still having some mucus production and trying to cough it up, but denies any nausea. She occasionally will cough up a dark green color. She otherwise has no questions or concerns at this time. Review of Systems Gastrointestinal: Vomiting Focused Exam Lactate Level 06/03/22 10:23: Lactic Acid Level 1.11 Respiratory: Chest Non Tender, No Accessory Muscle Use, No Respiratory Distress, Crackles (improved from yesterday), Wheezing (consistent from exam yesterday) Cardiovascular: No Edema, No Gallop, No JVD, No Murmur, Irregularly Irregular Skin: normal color, warm/dry Objective Exam Vital Signs Vital Signs Date Time Temp Pulse Resp B/P (MAP) Pulse Ox O2 Delivery O2 Flow Rate FiO2 06/04/22 09:00 105 114/65 06/04/22 09:00 25 93 Nasal Cannula 2.00 06/04/22 07:37 36.1 06/02/22 16:03 32 Capillary Refill : Less Than 3 Seconds General Appearance: No Apparent Distress, WD/WN HEENT: PERRL/EOMI Neck: Full Range of Motion, Normal Inspection Respiratory: Chest Non Tender, No Accessory Muscle Use, No Respiratory Distress, Crackles (improved since yesterday's exam), Wheezing (consistent from exam yesterday) Cardiovascular: No Gallop, No JVD, No Murmur, Irregularly Irregular Gastrointestinal: Normal Bowel Sounds, No Organomegaly, No Pulsatile Mass, Non Tender, Soft Extremity: Normal Capillary Refill, Normal Inspection, Normal Range of Motion, Non Tender, No Calf Tenderness, Pedal Edema (1+ pitting edema bilaterally) Neurologic/Psychiatric: Alert, Oriented x3, No Motor/Sensory Deficits, Normal Mood/Affect, director of public health II-XII Norm as Tested (normal except maybe mild NL flattening on the left side. ) Skin: Normal Color, Warm/Dry Results/Procedures Lab Laboratory Tests 06/03/22 22:10 06/04/22 02:45 Patient resulted labs reviewed. Imaging: Reviewed Imaging Films, Reviewed Imaging Report Assessment/Plan Assessment and Plan Assess & Plan/Chief Complaint Ms. Dariela Sher is a 81 y/o F with past medical history of anemia, atrial fibrillation, HLD, and recent UTI who was admitted for weakness and found to be hypotensive secondary to dehydration. 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 AFP, CEA, CA19-9 all WNL. Diagnosis/Problems Diagnosis/Problems (1) Duodenal mass Status: Acute Assessment & Plan: EGD on 06/02 with signs of duodenal mass, purplish gastric inflammation, and hiatal hernia. 5 biopsies were obtained during the EGD which are still pending. 06/04: CA 19-9, CEA, and AFP are negative. - Follow up on biopsy results - Surgery following, considering J tube for nutrition and gastric venting depending on biopsy results - Consider TPN for nutrition (2) Gastric outlet obstruction Status: Acute Assessment & Plan: - Cont to monitor nausea and vomiting, considering J tube placement per surgery (3) TIA (transient ischemic attack) Status: Acute Assessment & Plan: 10 PM patient had episode of aphasia and right sided we akness. Pt had CT Head nonCon which showed no acute intracranial findings, did show some mod to sev parenchymal volume loss. Patient's symptoms resolved shortly after CT head. Patient was started on a Heparin Drip since anticoagulation had been held during her hospitalization. - Cont Heparin drip (4) Leukocytosis Status: Resolved Assessment & Plan: 06/03/22 WBC of 15.4, up from 6.6 on 06/02. Patient denies fevers or chills. Some coarse crackles on lung auscultation. On EGD, noted to have some food particles in the trachea which were removed, but concern for aspiration pneumonia. Procal of 1.07, LA 1.11. 06/03 CXR with unchanged [id number] R pleural effusion, no obvious consolidation or increase in infiltrates. 06/04: WBC of 10.0. - Blood cultures pending - Cont Zosyn 4.5 mg IV q8 hours (started 06/03) - s/p Ceftriaxone (05/31-06/03) Resolution Date/Time: 06/04/22 @ 11:43 (5) Generalized weakness Status: Chronic Assessment & Plan: - PT/OT ordered (6) Hypotension Status: Acute Assessment & Plan: Pt was hypotensive overnight to 88/46. - Holding pressors for now - Cont Lactated Ringers at 100ml/hr Qualifiers: Qualified Codes: I95.9 - Hypotension, unspecified (7) Atrial fibrillation with rapid ventricular response Status: Chronic Assessment & Plan: - s/p Digoxin 0.5 mg for loading dose - Start Digoxin 0.125 mg daily on 06/04 - Started on Heparin Drip - Held Diltiazem (8) Dehydration Status: Resolved (9) Weight loss Status: Chronic (10) Hypothyroidism Status: Chronic Assessment & Plan: - Cont Levothyroxine 112 mcg daily Clinical Quality Measures DVT/VTE Risk/Contraindication: Contraindications-Pharm: Other *list below* Other: gastric cancer needs EGD STELLA GUNN DO 06/05/22 0525: Subjective Subjective/Events-last exam Pt had an episode of a TIA last night Off anticoagulation due to gastric outlet mass Placed on heparin drip by eICU and Digoxin is maintaining good rate control of afib Off pressure therapy Transferring to cardiac step down unit Talked to him about a J tube Dr. Mitchell will talk to them Updated them on the presumed cancer and will give updates when pathology confirms our suspicion halfway prognosis very poor Review of Systems General: Fatigue, Malaise Objective Exam General Appearance: No Apparent Distress, WD/WN, Chronically ill Respiratory: Wheezing (consistent from exam yesterday) Cardiovascular: Irregularly Irregular Assessment/Plan Assessment and Plan Assess & Plan/Chief Complaint TIA J-tube? Supervisory-Addendum Brief Verification & Attestation Participated in pt care: history, MDM, physical Personally performed: exam, history, MDM, supervision of care Care discussed with: Medical Student Procedures: n/a Results interpretation: Verified all documentation Verification and Attestation of Medical Student E/M Service A medical student performed and documented this service in my presence. I reviewed and verified all information documented by the medical student and made modifications to such information, when appropriate. I personally performed the physical exam and medical decision making. Stella Gunn, Jun 05, 2022,05:24 AMEENA MORGAN Jun 04, 2022 11:39 STELLA GUNN DO Jun 05, 2022 05:25
[2022-06-04] MEDS: ONDANSETRON 4 MG/2 ML (SDV) Z0FRAN IV PRN ×2 (14:23→23:36)
[2022-06-04] MEDS: dilTIAZem DRIP PRE-MIX 125 ML IV SCH (16:24)
[2022-06-05] MEDS: NS IV 1000 ML 1,000 ML IV SCH ×3 (02:03→18:30)
[2022-06-05] MEDS: RT-ALBUTEROL SULF 2.5 MG/3 ML PRE-MIX VIAL INH SCH ×4 (02:27→21:15)
[2022-06-05 04:21] LABS: BASOPHILS % (AUTO) 0 % (0-10); EOSINOPHILS # (AUTO) 0.3 10^3/uL (0.0-0.3); EOSINOPHILS % (AUTO) 4 % (0-10); HEMATOCRIT 30 % (35-52); HEMOGLOBIN 9.4 g/dL (11.5-16.0); LYMPHOCYTES % (AUTO) 14 % (12-44); MEAN CORPUSCULAR HEMOGLOBIN 31 pg (25-34); MEAN CORPUSCULAR HGB CONC 31 g/dL (32-36); MEAN CORPUSCULAR VOLUME 99 fL (80-99); MEAN PLATELET VOLUME 9.8 fL (9.0-12.2); MONOCYTES # (AUTO) 0.7 10^3/uL (0.0-1.0); MONOCYTES % (AUTO) 9 % (0-12); NEUTROPHILS # (AUTO) 5.5 10^3/uL (1.8-7.8); NEUTROPHILS % (AUTO) 73 % (42-75); PLATELET COUNT 223 10^3/uL (130-400); WHITE BLOOD COUNT 7.5 10^3/uL (4.3-11.0)
[2022-06-05] MEDS: PIPERACILLIN SODIUM/TAZOBACTAM 4.5 GM in NS (IVPB) 100 ML IV SCH ×3 (04:41→20:31)
[2022-06-05 04:43] LABS: ALBUMIN 2.3 GM/DL (3.2-4.5); BILIRUBIN,TOTAL 0.5 MG/DL (0.1-1.0); CALCIUM 7.4 MG/DL (8.5-10.1); CREATININE SERUM 0.66 MG/DL (0.60-1.30); MAGNESIUM 1.6 MG/DL (1.6-2.4); PHOSPHORUS 1.1 MG/DL (2.3-4.7); POTASSIUM 3.6 MMOL/L (3.6-5.0); TOTAL PROTEIN 4.5 GM/DL (6.4-8.2)
[2022-06-05] MEDS: KCL 20 MEQ TAB (K-DUR) PO SCH (04:53)
[2022-06-05] MEDS: MAGNESIUM 1 GM/100 ML IVPB 100 ML IV SCH ×3 (04:54→07:44)
[2022-06-05] MEDS: POTASSIUM CL 10MEQ/50ML IVPB 50 ML IV SCH ×3 (04:54→07:44)
[2022-06-05] MEDS: ONDANSETRON 4 MG/2 ML (SDV) Z0FRAN IV PRN ×2 (06:44→22:40)
[2022-06-05] MEDS: LEVOTHYROXINE 112 MCG (LEVOTHROID) TAB PO SCH (06:45)
[2022-06-05] MEDS: NOREPINEPHRINE 8 MG/250 ML 250 ML IV SCH (07:26)
--- NOTE | 2022-06-05 07:30 | Diagnostic Imaging Report ---
Indication: Pleural effusion Frontal chest obtained at 0503 a.m. and compared to yesterday. There is cardiomegaly with mild central vascular congestion. There is a left IJ catheter which is looped over the left innominate vein. There is no change in right pleural effusion with passive atelectasis versus infiltrate in the right base. IMPRESSION: Stable appearance compared to yesterday. No change in right pleural effusion with passive atelectasis versus infiltrate in the right base. Left IJ catheter remains looped over the left innominate vein. There is mild central vascular congestion. Dictated by: Dictated on workstation # [id number]
[2022-06-05] MEDS: DOCUSATE SODIUM 100 MG (COLACE) CAP PO SCH ×2 (07:44→19:45)
[2022-06-05] MEDS: SENNOSIDES 8.6 MG (SENOKOT) TAB PO SCH ×2 (07:45→19:45)
--- NOTE | 2022-06-05 08:02 | Progress Note - Surgery ---
JOHN HARRIS 06/05/22 0802: Subjective Date Seen by a Provider: Jun 05, 2022 Time Seen by a Provider: 07:59 Subjective/Events-last exam Patient reports she slept well last night. She reports she did have nausea and emesis x2 this morning. She also states that she tried the Ensure protein drinks but they made her sick and nauseous. She denies any pain right now and states her cough has improved with less sputum since starting abx. Sputum culture from yesterday shows yeast. Albumin today is 2.3. Review of Systems General: No Chills, No Night Sweats Pulmonary: No Dyspnea; Cough Cardiovascular: No: Chest Pain, Palpitations Gastrointestinal: Nausea, Vomiting; No: Abdominal Pain Focused Exam Lactate Level 06/03/22 10:23: Lactic Acid Level 1.11 Objective Exam Vital Signs Date Time Temp Pulse Resp B/P (MAP) Pulse Ox O2 Delivery O2 Flow Rate FiO2 06/05/22 07:54 36.1 06/05/22 06:00 91 18 114/63 (81) 100 Nasal Cannula 2.00 06/05/22 05:00 90 20 120/62 (78) 100 Nasal Cannula 2.00 06/05/22 04:43 36.3 06/05/22 04:00 107 17 127/73 (92) 94 Nasal Cannula 2.00 06/05/22 04:00 Nasal Cannula 2.00 06/05/22 03:00 98 18 110/64 (78) 87 Nasal Cannula 2.00 06/05/22 02:27 100 Nasal Cannula 2.00 06/05/22 02:00 89 18 105/58 (73) 100 Nasal Cannula 2.00 06/05/22 01:00 85 17 103/50 (68) 100 Nasal Cannula 2.00 06/05/22 01:00 85 06/05/22 00:00 92 19 102/57 (71) 100 Nasal Cannula 2.00 06/04/22 23:44 Nasal Cannula 2.00 06/04/22 23:19 37.0 06/04/22 23:00 90 20 112/58 (75) 100 Nasal Cannula 2.00 06/04/22 22:00 86 18 100/52 (69) 100 Nasal Cannula 2.00 06/04/22 21:31 100 Nasal Cannula 2.00 06/04/22 21:00 98 18 125/68 (84) 100 Nasal Cannula 2.00 06/04/22 20:00 Nasal Cannula 2.00 06/04/22 20:00 54 18 111/58 (80) 100 Nasal Cannula 2.00 06/04/22 20:00 36.5 06/04/22 19:29 36.4 101 15 108/65 (79) 100 Nasal Cannula 2.00 06/04/22 19:00 81 06/04/22 18:00 93 21 111/56 (74) 100 Nasal Cannula 2.00 06/04/22 17:00 86 19 110/54 (72) 100 Nasal Cannula 2.00 06/04/22 16:24 84 114/56 06/04/22 16:00 Nasal Cannula 2.00 06/04/22 16:00 90 24 111/60 (77) 98 Nasal Cannula 2.00 06/04/22 15:00 84 19 114/56 (75) 100 Nasal Cannula 2.00 06/04/22 14:10 94 Nasal Cannula 3.00 06/04/22 14:00 82 19 115/61 (79) 100 Nasal Cannula 2.00 06/04/22 13:00 94 14 120/61 (80) 97 Nasal Cannula 2.00 06/04/22 12:39 115 06/04/22 12:00 36.2 06/04/22 12:00 98 15 117/74 (88) 96 Nasal Cannula 2.00 06/04/22 12:00 Nasal Cannula 2.00 06/04/22 11:00 101 18 105/71 (82) 100 Nasal Cannula 2.00 06/04/22 10:00 101 22 109/73 (85) 100 Nasal Cannula 2.00 06/04/22 09:00 105 114/65 06/04/22 09:00 105 25 114/65 (81) 93 Nasal Cannula 2.00 06/04/22 08:00 96 19 103/52 (69) 100 Nasal Cannula 2.00 06/04/22 08:00 Nasal Cannula 2.00 I & O 06/05/22 07:00 Intake Total 1675 ml Output Total 1125 ml Balance 550 ml Capillary Refill : Less Than 3 Seconds General Appearance: No Apparent Distress, WD/WN, Chronically ill HEENT: PERRL/EOMI Neck: Full Range of Motion, Normal Inspection Respiratory: Chest Non Tender, No Accessory Muscle Use, No Respiratory Distress, Wheezing (consistent from exam yesterday) Cardiovascular: Irregularly Irregular Peripheral Pulses: 2+ Dorsalis Pedis (R), 2+ Left Dors-Pedis (L), 2+ Radial Pulses (R), 2+ Radial Pulses (L) Gastrointestinal: non tender, soft; No hernia Extremity: Normal Capillary Refill, Non Tender, No Pedal Edema Neurologic/Psychiatric: Alert, Oriented x3, No Motor/Sensory Deficits, Normal Mood/Affect Skin: Normal Color, Warm/Dry Lymphatic: No Adenopathy (cervical, axillary) Results Lab Laboratory Tests 06/04/22 10:30: Activated Partial Thromboplast Time 87H 06/04/22 11:35: Glucometer 84 06/04/22 17:55: Activated Partial Thromboplast Time 53H 06/04/22 18:50: Glucometer 101 06/04/22 23:01: Activated Partial Thromboplast Time 37H 06/04/22 23:44: Glucometer 78 06/05/22 04:03: Activated Partial Thromboplast Time 134*H, White Blood Count 7.5, Red Blood Count 3.02L, Hemoglobin 9.4L, Hematocrit 30L, Mean Corpuscular Volume 99, Mean Corpuscular Hemoglobin 31, Mean Corpuscular Hemoglobin Concent 31L, Red Cell Distribution Width 15.5H, Platelet Count 223, Mean Platelet Volume 9.8, Immature Granulocyte % (Auto) 1, Neutrophils (%) (Auto) 73, Lymphocytes (%) (Auto) 14, Monocytes (%) (Auto) 9, Eosinophils (%) (Auto) 4, Basophils (%) (Auto) 0, Neutrophils # (Auto) 5.5, Lymphocytes # (Auto) 1.0, Monocytes # (Auto) 0.7, Eosinophils # (Auto) 0.3, Basophils # (Auto) 0.0, Immature Granulocyte # (Auto) 0.1, Sodium Level 144, Potassium Level 3.6, Chloride Level 114H, Carbon Dioxide Level 18L, Anion Gap 12, Blood Urea Nitrogen 10, Creatinine 0.66, Estimat Glomerular Filtration Rate 87, BUN/Creatinine Ratio 15, Glucose Level 88, Calcium Level 7.4L, Corrected Calcium 8.8, Phosphorus Level 1.1L, Magnesium Level 1.6, Total Bilirubin 0.5, Aspartate Amino Transf (AST/SGOT) 12, Alanine Aminotransferase (ALT/SGPT) 8, Alkaline Phosphatase 51, Total Protein 4.5L, Albumin 2.3L Microbiology 06/04/22 Gram Stain - Final, Resulted 06/04/22 Sputum Culture - Preliminary, Resulted Yeast species 06/03/22 Blood Culture - Preliminary, Resulted No growth 05/31/22 Urine Culture - Final, Complete NO GROWTH Assessment/Plan Assessment/Plan Assessment/Plan Gastric/Antral thickening Malnutrition - poor PO intake TIA 06/03/22 Pleural Effusion Ascites Weight loss, N/V, Anemia UTI- no growth on culture Afib, HTN Continue zofran PRN for nausea and vomiting. Monitor hgb with labs. Results of CEA, CA19-9 and AFP are within normal values. Pathology results from previous biopsies show no malignancy to be present, however, malignancies may be present elsewhere. Pt is agreeable to Diagnostic laparoscopy to find these with J-tube placement for nutrition. She also agrees to have thoracentesis at that time; this was something that was discussed with family (both daughter and son). Discontinue anticoagulants at midnight today per pre-op. Clinical Quality Measures DVT/VTE Risk/Contraindication: Contraindications-Pharm: Other *list below* Other: gastric cancer needs EGD JUANCHO MITCHELL DO 06/05/22 1350: Subjective Time Seen by a Provider: 11:37 Subjective/Events-last exam Pt seen and examined, states she can't keep anything down and is feeling weak. Pathology on biopsies came back, no malignancy seen. Review of Systems General: No Chills, No Night Sweats; Fatigue, Malaise Pulmonary: No Dyspnea; Cough Cardiovascular: Palpitations; No: Chest Pain Gastrointestinal: Nausea, Vomiting; No: Abdominal Pain Objective Exam General Appearance: No Apparent Distress, Chronically ill, Thin HEENT: PERRL/EOMI Respiratory: Chest Non Tender, No Accessory Muscle Use, No Respiratory Distress, Wheezing (consistent from exam yesterday), Other (decreased breath sounds right lung with dullness to percussion) Cardiovascular: No Murmur, Irregularly Irregular Gastrointestinal: non tender, soft; No hernia Extremity: No Pedal Edema Neurologic/Psychiatric: Alert, Oriented x3 Skin: Warm/Dry, Pallor Assessment/Plan Assessment/Plan Assessment/Plan Gastric/Antral thickening Malnutrition - poor PO intake TIA 06/03/22 Pleural Effusion Ascites Weight loss, N/V, Anemia UTI- no growth on culture Afib, HTN I spoke with pt and her children, I also talked to Dr. Manning and right now we unfortunately still don't know what is going on. In addition, she is not able to eat and getting weaker. We discussed Diagnostic laparoscopy to look at stomach and duodenum possibly do a biopsy, may also place a J-tube for nutrition. She also agrees to have thoracentesis at that time. Discontinue anticoagulants at midnight today for surgery tomorrow. Supervisory-Addendum Brief Verification & Attestation Participated in pt care: history, MDM, physical Personally performed: exam, history, MDM, supervision of care Care discussed with: Medical Student Procedures: n/a Verification and Attestation of Medical Student E/M Service A medical student performed and documented this service. I then reviewed and verified all information documented by the medical student and made modifications to such information, when appropriate. I personally performed a physical exam, medical decision making and then discussed any differences between the notes and made revisions as necessary to create one note. Juancho Mitchell , 06/05/22 , 13:50 JOHN HARRIS Jun 05, 2022 08:02 JUANCHO MITCHELL DO Jun 05, 2022 13:50
[2022-06-05] MEDS: DIGOXIN 0.25 MG/ML (LANOXIN) 2 ML AMP IV SCH (08:18)
[2022-06-05] MEDS: PANTOPRAZOLE 40 MG (PROTONIX) VIAL IV SCH (08:18)
--- NOTE | 2022-06-05 09:27 | Cardiology Progress Note ---
Subjective Date Seen by Provider: Jun 05, 2022 Time Seen by Provider: 09:26 Subjective/Events-last exam Patient was seen at bedside, laying down comfortably, feeling better. No new complaint Review of Systems General: No Chills, No Night Sweats; Fatigue, Malaise; No Appetite, No Other HEENT: No Head Aches, No Visual Changes, No Eye Pain, No Ear Pain, No Dysphasia, No Sinus Congestion, No Post Nasal Drip, No Sore Throat, No Other Pulmonary: No Dyspnea, No Cough, No Pleuritic Chest Pain, No Other Cardiovascular: No: Chest Pain, Palpitations, Orthopnea, Paroxysmal Noc. Dyspnea, Edema, Lt Headedness, Other Focused Exam Lactate Level 06/03/22 10:23: Lactic Acid Level 1.11 Objective-Cardiology Exam Last Set of Vital Signs Vital Signs 06/02/22 06/05/22 06/05/22 16:03 07:54 08:00 Temp 36.1 Pulse 112 Resp 26 B/P (MAP) 135/77 (96) Pulse Ox 100 O2 Delivery Nasal Cannula O2 Flow Rate 2.00 FiO2 32 I&O Intake and Output 06/05/22 00:00 Intake Total 650 ml Output Total 1125 ml Balance -475 ml Intake Oral 550 ml IV Total 100 ml Output Urine Total 925 ml Emesis 200 ml # Emeses 2 General: Alert, Oriented X3, Cooperative HEENT: Atraumatic, PERRLA Neck: Supple, No JVD, No Thyromegaly Lungs: Clear to Auscultation, Normal Air Movement Heart: Normal S1, Normal S2, No Murmurs, Other (Atrial fibrillation) Abdomen: Normal Bowel Sounds, Soft, No Hepatosplenomegaly, No Masses Extremities: No Clubbing, No Cyanosis, No Edema, Normal Pulses, No Tenderness/Swelling Skin: No Rashes, No Breakdown, No Significant Lesion Neuro: Normal Speech Psych/Mental Status: Mental Status NL, Mood NL Results Lab Laboratory Tests 06/05/22 04:03 A/P-Cardiology Admission Diagnosis Hypotensive shock Atrial fibrillation Gastric tumor UTI Assessment/Plan Hypotensive shock, most probably hypovolemic shock due to poor oral intake. Blood pressure is more stable at this time, continue to monitor Atrial fibrillation, borderline tachycardia History of chronic atrial fibrillation followed by a shearer screen measurer and trimmer at [facility] Had transient episode of tachycardia, did not tolerate Cardizem drip Tolerating digoxin well Status post TIA occurred on June 03, 2022 slurred speech and weakness. CT of the head without contrast was negative. Tolerating heparin drip well. Continue to monitor H&H and platelets. [id number] score 4, has been off anticoagulation since admission, started on heparin drip 2D echo was done on June 01, 2022 showing normal LV size with a EF 55%, pulmonary hypertension with PA pressure 40 to 45 mmHg, moderate mitral regurgitation, mild aortic valve stenosis No recent cardiac work-up to evaluate for any ischemic heart disease Patient had extensive family history, atrial fibrillation, was scheduled for a stress test on June 06 which was canceled. Currently asymptomatic. Nausea and loss of appetite Gastric/antral thickening with questionable mets. Dr. Mitchell consulted for possible endoscopy. Pleural effusion, ascites, continue with IV fluid for now and monitor. UTI. Received antibiotic Strong family history of heart disease. Preoperative cardiac evaluation, patient is considered at intermediate to high risk for perioperative cardiovascular complications, decision regarding surgery, risk versus benefit is deferred to the surgeon NARDA GARCIA MD Jun 05, 2022 09:27
--- NOTE | 2022-06-05 10:38 | Physical Therapy Evaluation ---
PT Evaluation-General Medical Diagnosis Admission Date May 31, 2022 at 14:37 Medical Diagnosis: hypotension, dehydration Onset Date: May 31, 2022 Therapy Diagnosis Therapy Diagnosis: impaired mobility, strength, endurance Height/Weight Height (Feet): 5 Height (Inches): 6.00 Weight (Pounds): 180 Precautions Precautions/Isolations: Fall Prevention, Standard Precautions Weight Bear Status Right Lower Extremity: Right Weight Bearing/Tolerated Left Lower Extremity: Left Weight Bearing/Tolerated Referral Physician: Stella Manning DO Reason for Referral: Evaluation/Treatment Medical History History of Falls (past yr): Unknown Prior Surgery (last 100 days): Unknown Additional Medical History Past Medical History Surgeries: Eye Surgery (cataracts b/l), Gallbladder, Orthopedic COPD Atrial Fibrillation, Hypertension, Valvular Heart Disease Gastroesophageal Reflux, Diverticulosis Degenerate Disk Disease, Arthritis, Chronic Back Pain Hypothyroidsim Cataract Blood Disorders: No Reviewed History: Yes Social History Home: Single Level Current Living Status: Children Entry Into Home: Stairs With Railing PT Steps Into Home: 5 Prior Prior Level of Function SCALE: Activities may be completed with or without assistive devices. 7-Fzaexnzorn-vymbfse completes the activity by him/herself with no assistance from a helper. 5-Set-up or Clean-up Assistance-helper sets up or cleans up; patient completes activity. [place] assists only prior to or following the activity. 4-Supervision or Touching Assistance-helper provides verbal cues and/or touching/steadying and/or contact guard assistance as patient completes activity. Assistance may be provided throughout the activity or intermittently. 3-Partial/Moderate Assistance-helper does LESS THAN HALF the effort. [place] lifts, holds or supports trunk or limbs, but provides less than half the effort. 2-Substantial/Maximal Assistance-helper does MORE THAN HALF the effort. [place] lifts or holds trunk or limbs and provides more than half the effort. 2-Nicjtvcwr-phqiaq does ALL the effort. Patient does none of the effort to complete the activity. Or, the assistance of 2 or more helpers is required for the patient to complete the activity. If activity was not attempted, code reason: 7-Patient Refused. 9-Not Applicable-not attempted and the patient did not perform the activity before the current illness, exacerbation or injury. 10-Not Attempted due to Environmental Limitations-(lack of equipment, weather restraints, etc.). 88-Not Attempted due to Medical Conditions or Safety Concerns. Bed Mobility: 6 Transfers (B,C,W/C): 6 Gait: 6 Stairs: 6 Indoor Mobility (Ambulation): Independent Stairs: Independent Prior Devices Use: Walker Patient uses a rolling walker inside the home and a single point cane outside the home. PT Evaluation-Current Subjective Patient in bed pre tx, agrees to PT, has no complaints of pain. Pt/Family Goals to be independent at home Objective Patient Orientation: Person, Place, Situation Attachments: [place] Catheter, IV ROM/Strength ROM Lower Extremities WNL Strength Lower Extremities LLE (hip flexion 3/5, knee flexion 4/5, knee extension 4/5, dorsiflexion 4/5), RLE (hip flexion 3/5, knee flexion 4/5, knee extension 4/5, dorsiflexion 4/5) Sensory Hearing: Functional Sensation Right Lower Extremit: Intact Sensation Left Lower Extremity: Intact Transfers Roll Left to Right (QC): 3 Lying to Sitting/Side of Bed(Q: 3 Sit to Stand (QC): 3 Chair/Oln-dd-Vtirm Xfer(QC): 4 Min assist for supine to sit and sit to stand. Patient was a little dizzy immediately upon sitting but recovered quickly. Shaky when standing, was able to ambulate about 5' to a recliner and sit, cues for hand placement and safety. Balance Sitting Static: Fair Sitting Dynamic: Fair Standing Static: Fair Standing Dynamic: Fair Treatment BLE seated exercises x20 (AP, LAQ) Assessment/Needs Patient in recliner post tx with nurse call, phone, tray, all needs met. Patient has impaired mobility, strength, endurance. Min assist needed to stand and supine to sit. Rehab Potential: Fair PT Outside Repairer Special Goals Outside Repairer Special Goals PT Outside Repairer Special Goals Time Frame: Jun 12, 2022 Roll Left & Right (QC): 6 Sit to Lying (QC): 6 Lying-Sitting on Side/Bed(QC): 6 Sit to Stand (QC): 6 Chair/Ifu-qb-Rcesd Xfer(QC): 6 Walk 10 feet (QC): 6 Walk 50ft with 2 Turns (QC): 6 PT Plan Problem List Problem List: Activity Tolerance, Functional Strength, Safety, Balance, Gait, Transfer, Bed Mobility, ROM Treatment/Plan Treatment Plan: Continue Plan of Care Treatment Plan: Bed Mobility, Education, Functional Activity John, Functional Strength, Gait, Safety, Therapeutic Exercise, Transfers Treatment Duration: Jun 12, 2022 Frequency: 6 times per week Estimated Hrs Per Day: .25 hour per day Patient and/or Family Agrees t: Yes Safety Risks/Education Patient Education: Gait Training, Transfer Techniques, Correct Positioning, Safety Issues Teaching Recipient: Patient Teaching Methods: Demonstration, Discussion Response to Teaching: Reinforcement Needed Discharge Recommendations Plan Patient will perform bed mobility and transfer training, balance and endurance training, functional strengthening, stair training, gait training, and education, to improve functional mobility and independence at home. Therapy Discharge Recommendati: Home & Family, Post Acute PT Time/GCodes Time In: 1000 Time Out: 1020 Total Billed Treatment Time: 20 Total Billed Treatment 1 visit MILENA Rodriguez' CATARINA KEARNS PT Jun 05, 2022 10:38
--- NOTE | 2022-06-05 11:25 | Occupational Therapy Eval ---
OT Evaluation-General/PLF Medical Diagnosis Admission Date May 31, 2022 at 14:37 Medical Diagnosis: hypotension, dehydration Onset Date: May 31, 2022 Therapy Diagnosis Therapy Diagnosis: reduced adl status Height/Weight Height (Feet): 5 Height (Inches): 6.00 Weight (Pounds): 180 Precautions Precautions/Isolations: Fall Prevention, Standard Precautions Referral Physician: Stella Manning DO Referral Reason: Evaluation/Treatment Medical History Pertinent Medical History: Atrial Fib, Arthritis, COPD, GERD Current History Pt presented to hospital with c/o weakness and abdominal pain. 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 EGD reveals duodenal mass and hiatal hernia. Per patient, she lives with her son in a single story home. She was indep with adls, cooking, and grocery shopping. She has a unit tender 2x/week. Pt states she uses a walker inside the home and a cane out in the community. Reviewed History: Yes Social History Home: Single Level Current Living Status: Children Entry Into Home: Stairs With Railing Steps Into Home: 5 ADL-Prior Level of Function SCALE: Activities may be completed with or without assistive devices. 6-Rddmjainfq-ckpzynx completes the activity by him/herself with no assistance from a helper. 5-Set-up or Clean-up Assistance-helper sets up or cleans up; patient completes activity. [place] assists only prior to or following the activity. 4-Supervision or Touching Assistance-helper provides verbal cues and/or touching/steadying and/or contact guard assistance as patient completes activity. Assistance may be provided throughout the activity or intermittently. 3-Partial/Moderate Assistance-helper does LESS THAN HALF the effort. [place] lifts, holds or supports trunk or limbs, but provides less than half the effort. 2-Substantial/Maximal Assistance-helper does MORE THAN HALF the effort. [place] lifts or holds trunk or limbs and provides more than half the effort. 5-Saqujwmtw-gnlber does ALL the effort. Patient does none of the effort to complete the activity. Or, the assistance of 2 or more helpers is required for the patient to complete the activity. If activity was not attempted, code reason: 7-Patient Refused. 9-Not Applicable-not attempted and the patient did not perform the activity before the current illness, exacerbation or injury. 10-Not Attempted due to Environmental Limitations-(lack of equipment, weather restraints, etc.). 88-Not Attempted due to Medical Conditions or Safety Concerns. Self Care: Independent Functional Cognition: Independent DME/Equipment: Bath Chair, Reachers (Pt believes it is broken and will need to purchase a new one. ), Tub/Shower Drive Self: Yes OT Current Status Subjective Pt denies pain, reports she feels good sitting up in the chair. Appearance Pt returned to sitting in recliner, all needs within reach, son in the room at OT departure. Mental Status/Objective Patient Orientation: Person, Place, Situation Attachments: Wren Catheter, IV, Oxygen (1L), Telemetry Current Glasses/Contacts: Yes Dentures/Partials: Yes Hand Dominance: Right Upper Extremity ROM WNL Upper Extremity Strength 3/5 grossly ADL-Treatment Eating (QC): 88 (Pt reports being NPO since 05/31/22 (5 days)) Oral Hygiene (QC): 5 On/Off Footwear (QC): 1 Toileting Hygiene (QC): 1 (wren catheter) Pt sitting in chair at OT arrival. She reports inability to complete footwear as she normally has to prop her feet onto the side of her bed. Pt unable to perform figure 4 method during assessment. OT discussed AE to assist in task in effort to improve energy conservation and reduce effort. Pt agreeable to practice next session. Oxygen often fluctuating from 83-97% when patient is talking. O2 Often recovers quickly when conversation ends. Min cues for PLB. Min a to stand, slightly unsteady on feet. Anticipate assist needed with clothing management at this time as pt would require BUE support to maintain balance. Education OT Patient Education: Correct positioning, Energy conservation, Modified ADL techniques, Purpose of tx/functional activities, Safety issues, Transfer techniques, Use of adapted equipment Teaching Recipient: Patient Teaching Methods: Discussion Response to Teaching: Verbalize Understanding, Reinforcement Needed OT Club Room Attendant Goals Club Room Attendant Goals Time Frame: Jun 19, 2022 Toileting Hygiene (QC): 4 Shower/Bathe Self (QC): 4 Upper Body Dressing (QC): 5 Lower Body Dressing (QC): 4 On/Off Footwear (QC): 4 1=Demonstrate adherence to instructed precautions during ADL tasks. 2=Patient will verbalize/demonstrate understanding of assistive devices/modifications for ADL. 3=Patient will improve strength/tolerance for activity to enable patient to perform ADL's. OT Education/Plan Problem List/Assessment Assessment: Decreased Activ Tolerance, Decreased UE Strength, Impaired Funct Balance, Impaired I ADL's, Impaired Self-Care Skills Discharge Recommendations Plan/Recommendations: Continue POC Therapy Discharge Recommendati: Post Acute OT (Home health pending progress ) Equpiment Recommendations-D/C: Fusion Juncture Grinder, Sock Aide Treatment Plan/Plan of Care Treatment,Training & Education: Yes Patient would benefit from OT for education, treatment and training to promote independence in ADL's, mobility, safety and/or upper extremity function for ADL's. Plan of Care: ADL Retraining, Functional Mobility, UE Funct Exercise/Act Treatment Duration: Jun 19, 2022 Frequency: 3 times per week (3-5x/week) Estimated Hrs Per Day: .25 hour per day Agreement: Yes Rehab Potential: Fair Time/GCodes Start Time: 10:56 Stop Time: 11:12 Total Time Billed (hr/min): 16 Billed Treatment Time 1 visit Myah Sullivan OT Jun 05, 2022 11:24
--- NOTE | 2022-06-05 12:11 | Progress Note - Hospitalist ---
AMEENA MORGAN 06/05/22 1211: Subjective HPI/CC On Admission Date Seen by Provider: Jun 05, 2022 Time Seen by Provider: 09:45 CC: Hypotension from hypovolemic shock HPI: This is an 81yoWF who presented to the ER with weakness and found to have hypotension from dehydration. She recently was placed on abx for UTI but she had no signs of sepsis. Abdominal pain prompted CT scan in ER and was found to have findings consistent with gastric outlet mass with mets so Dr Mitchell will have OAC held and perform scope with biopsies to confirm suspicion of cancer. Subjective/Events-last exam Patient is feeling okay this morning. She states she has had nausea and some vomiting over the past 24 hours. She has not been able to tolerate anything by mouth. She tried to have some Ensure yesterday but it came back up. She otherwise has no discomfort or pain at baseline. She slept well last night. She still has not had a bowel movement. She denies any recurrent symptoms from her TIA the day prior and denies any residual weakness from it as well. She has no questions or concerns besides just eager to hear about the biopsy results. Review of Systems Gastrointestinal: Nausea, Vomiting Focused Exam Lactate Level 06/03/22 10:23: Lactic Acid Level 1.11 Objective Exam Vital Signs Vital Signs Date Time Temp Pulse Resp B/P (MAP) Pulse Ox O2 Delivery O2 Flow Rate FiO2 06/05/22 12:00 110 21 120/62 (81) 94 Nasal Cannula 2.00 06/05/22 11:56 36.1 06/02/22 16:03 32 Capillary Refill : Less Than 3 Seconds General Appearance: No Apparent Distress, WD/WN HEENT: PERRL/EOMI Neck: Full Range of Motion, Normal Inspection Respiratory: Chest Non Tender, No Accessory Muscle Use, No Respiratory Distress, Crackles (very mild crackles on lung bases, but improved from prior e xams), Wheezing (mild wheezing bilaterally) Cardiovascular: No Edema, No Gallop, No JVD, No Murmur, Normal Peripheral Pulses, Irregularly Irregular Gastrointestinal: Normal Bowel Sounds, No Pulsatile Mass, Mass (able to palpate mid epigastric mass, which was tender on palpation ), Tenderness Extremity: Normal Capillary Refill, Normal Inspection, Non Tender, No Pedal Edema Neurologic/Psychiatric: Alert, Oriented x3, No Motor/Sensory Deficits, Normal Mood/Affect Skin: Normal Color, Warm/Dry Results/Procedures Lab Laboratory Tests 06/05/22 04:03 Patient resulted labs reviewed. Imaging: Reviewed Imaging Films, Reviewed Imaging Report Assessment/Plan Assessment and Plan Assess & Plan/Chief Complaint Ms. Dariela Sher is a 81 y/o F with past medical history of anemia, atrial fibrillation, HLD, and recent UTI who was admitted for weakness and found to be hypotensive secondary to dehydration. 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 AFP, CEA, CA19-9 all WNL. Biopsy results preliminary read as no obvious cancer. Diagnosis/Problems Diagnosis/Problems (1) Duodenal mass Status: Acute Assessment & Plan: EGD on 06/02 with signs of duodenal mass, purplish gastric inflammation, and hiatal hernia. 5 biopsies were obtained during the EGD which are still pending. 06/04: CA 19-9, CEA, and AFP are negative. 06/05: preliminary read of biopsy is that there is no obvious cancer. Dr. Gunn discussed with general surgery. - Surgery following, considering ex-lap and J tube placement. Will allow for resection/biopsy of mass which will better guide treatment. The J tube will improve nutrition and allow for her stomach to be vented as well. (2) Gastric outlet obstruction Status: Acute Assessment & Plan: - Cont to monitor nausea and vomiting, considering J tube placement per surgery (3) TIA (transient ischemic attack) Status: Resolved Assessment & Plan: 10/3 PM patient had episode of aphasia and right sided weakness. Pt had CT Head nonCon which showed no acute intracranial findings, did show some mod to sev parenchymal volume loss. Patient's symptoms resolved shortly after CT head. Patient was started on a Heparin Drip since anticoagulation had been held during her hospitalization. - Cont Heparin drip while patient remains NPO and cannot take OACs. Resolution Date/Time: 06/05/22 @ 12:21 (4) Leukocytosis Status: Resolved Assessment & Plan: 06/03/22 WBC of 15.4, up from 6.6 on 06/02. Patient denies fevers or chills. Some coarse crackles on lung auscultation. On EGD, noted to have some food particles in the trachea which were removed, but concern for aspiration pneumonia. Procal of 1.07, LA 1.11. 06/03 CXR with unchanged zrrnw-[id number]-nfwrjkhu R pleural effusion, no obvious consolidation or increase in infiltrates. 06/04: WBC of 10.0. 06/05: WBC of 7.5 - Blood cultures pending, no growth to date. - Cont Zosyn 4.5 mg IV q8 hours (started 06/03) - s/p Ceftriaxone (05/31-06/03) Resolution Date/Time: 06/04/22 @ 11:43 (5) Generalized weakness Status: Chronic Assessment & Plan: - PT/OT ordered (6) Hypotension Status: Resolved Assessment & Plan: Pt was hypotensive overnight to 88/46. - Holding pressors for now - Cont Lactated Ringers at 100ml/hr Qualifiers: Qualified Codes: I95.9 - Hypotension, unspecified Resolution Date/Time: 06/05/22 @ 12:22 (7) Atrial fibrillation with rapid ventricular response Status: Chronic Assessment & Plan: - s/p Digoxin 0.5 mg for loading dose - Start Digoxin 0.125 mg daily on 06/04 - Started on Heparin Drip - Held Diltiazem (8) Dehydration Status: Resolved (9) Weight loss Status: Chronic (10) Hypothyroidism Status: Chronic Assessment & Plan: - Cont Levothyroxine 112 mcg daily Clinical Quality Measures DVT/VTE Risk/Contraindication: Contraindications-Pharm: Other *list below* Other: gastric cancer needs EGD STELLA GUNN DO 06/06/22 0534: Subjective Subjective/Events-last exam EGD with biopsies showed no evidence of cancer CT scan and clinical status is very suspicious for neoplastic process Exploratory laparoscopy with G-tube placement will be placed tomorrow Heparin drip will be discontinued Objective Exam General Appearance: Thin, Other (Frail and pale) Respiratory: Crackles (very mild crackles on lung bases, but improved from prior exams), Wheezing (mild wheezing bilaterally) Assessment/Plan Assessment and Plan Assess & Plan/Chief Complaint Exploratory laparoscopy with J-tube placement Supervisory-Addendum Brief Verification & Attestation Participated in pt care: history, MDM, physical Personally performed: exam, history, MDM, supervision of care Care discussed with: Medical Student Procedures: n/a Results interpretation: Verified all documentation Verification and Attestation of Medical Student E/M Service A medical student performed and documented this service in my presence. I reviewed and verified all information documented by the medical student and made modifications to such information, when appropriate. I personally performed the physical exam and medical decision making. Stella Gunn, Jun 06, 2022,05:33 AMEENA MORGAN Jun 05, 2022 12:11 STELLA GUNN DO Jun 06, 2022 05:34
[2022-06-05] MEDS: HEParin DRIP 25000 UNIT/500ML 500 ML IV SCH (13:00)
[2022-06-05] MEDS: HEParin 1000 UNIT/ML (10ML VIAL) FOR BOLUS IV PRN (13:09)
[2022-06-05] MEDS ORDERED: HEParin 1000 UNIT/ML (10ML VIAL) FOR BOLUS IV NR (13:15)
[2022-06-06] VITALS (7 sets, daily range): BP systolic 116–131; BP diastolic 62–85
[2022-06-06 03:25] LABS: BASOPHILS % (AUTO) 1 % (0-10); EOSINOPHILS # (AUTO) 0.2 10^3/uL (0.0-0.3); EOSINOPHILS % (AUTO) 3 % (0-10); HEMATOCRIT 30 % (35-52); HEMOGLOBIN 9.3 g/dL (11.5-16.0); LYMPHOCYTES # (AUTO) 0.9 10^3/uL (1.0-4.0); LYMPHOCYTES % (AUTO) 16 % (12-44); MEAN CORPUSCULAR HEMOGLOBIN 31 pg (25-34); MEAN CORPUSCULAR HGB CONC 31 g/dL (32-36); MEAN CORPUSCULAR VOLUME 99 fL (80-99); MEAN PLATELET VOLUME 9.8 fL (9.0-12.2); MONOCYTES # (AUTO) 0.6 10^3/uL (0.0-1.0); MONOCYTES % (AUTO) 11 % (0-12); NEUTROPHILS % (AUTO) 69 % (42-75); PLATELET COUNT 227 10^3/uL (130-400); WHITE BLOOD COUNT 5.7 10^3/uL (4.3-11.0)
[2022-06-06 03:36] LABS: ALBUMIN 2.4 GM/DL (3.2-4.5); POTASSIUM 3.5 MMOL/L (3.6-5.0)
[2022-06-06 03:37] LABS: INR 1.3 (0.8-1.4); PROTHROMBIN TIME PATIENT 16.1 SEC (12.2-14.7)
[2022-06-06 03:38] LABS: CALCIUM 7.7 MG/DL (8.5-10.1)
[2022-06-06 03:39] LABS: TOTAL PROTEIN 4.6 GM/DL (6.4-8.2)
[2022-06-06 03:41] LABS: BILIRUBIN,TOTAL 0.6 MG/DL (0.1-1.0)
[2022-06-06 03:42] LABS: CREATININE SERUM 0.6 MG/DL (0.60-1.30)
[2022-06-06 03:45] LABS: MAGNESIUM 1.7 MG/DL (1.6-2.4)
[2022-06-06] MEDS: PIPERACILLIN SODIUM/TAZOBACTAM 4.5 GM in NS (IVPB) 100 ML IV SCH ×3 (04:56→20:32)
[2022-06-06] MEDS: ONDANSETRON 4 MG/2 ML (SDV) Z0FRAN IV PRN (05:35)
[2022-06-06] MEDS: LEVOTHYROXINE 112 MCG (LEVOTHROID) TAB PO SCH (05:36)
[2022-06-06] MEDS: RT-ALBUTEROL SULF 2.5 MG/3 ML PRE-MIX VIAL INH SCH ×2 (07:34→21:37)
[2022-06-06] MEDS: SENNOSIDES 8.6 MG (SENOKOT) TAB PO SCH ×2 (07:36→20:12)
[2022-06-06] MEDS: DOCUSATE SODIUM 100 MG (COLACE) CAP PO SCH ×2 (07:36→20:12)
--- NOTE | 2022-06-06 07:41 | Diagnostic Imaging Report ---
CHEST 1 VIEW, AP/PA ONLY Indication: Pleural effusion Comparison: 06/05/2022 Findings: Stable moderate-sized right pleural effusion. Bibasilar pulmonary opacities are unchanged. No pneumothorax. Stable enlargement of cardiac silhouette. The left IJ central venous catheter remains in stable position which is folded upon itself in the region of the subclavian vein. Impression: 1. No change since yesterday's exam. Dictated by: Dictated on workstation # [id number]
[2022-06-06] MEDS: DIGOXIN 0.25 MG/ML (LANOXIN) 2 ML AMP IV SCH (08:03)
[2022-06-06] MEDS: PANTOPRAZOLE 40 MG (PROTONIX) VIAL IV SCH (08:04)
[2022-06-06] MEDS: NS IV 1000 ML 1,000 ML IV SCH ×3 (08:04→15:34)
[2022-06-06] MEDS: FLUCONAZOLE 100 MG/50 ML 50 ML IV SCH (08:04)
--- NOTE | 2022-06-06 08:30 | Cardiology Progress Note ---
Subjective Date Seen by Provider: Jun 06, 2022 Time Seen by Provider: 08:29 Subjective/Events-last exam Patient was seen at bedside, laying down comfortably, still having nausea and vomiting Review of Systems General: No Chills, No Night Sweats; Fatigue, Malaise; No Appetite, No Other HEENT: No Head Aches, No Visual Changes, No Eye Pain, No Ear Pain, No Dysphasia, No Sinus Congestion, No Post Nasal Drip, No Sore Throat, No Other Pulmonary: No Dyspnea, No Cough, No Pleuritic Chest Pain, No Other Cardiovascular: No: Chest Pain, Palpitations, Orthopnea, Paroxysmal Noc. Dyspnea, Edema, Lt Headedness, Other Focused Exam Lactate Level 06/03/22 10:23: Lactic Acid Level 1.11 Objective-Cardiology Exam Last Set of Vital Signs Vital Signs 06/05/22 06/06/22 15:22 07:37 Temp 36.1 Pulse 92 Resp 18 B/P (MAP) 127/67 (87) Pulse Ox 100 O2 Delivery Nasal Cannula O2 Flow Rate 1.00 FiO2 24 I&O Intake and Output 06/05/22 23:59 Intake Total 1950 ml Output Total 1415 ml Balance 535 ml Intake Oral 300 ml IV Total 1650 ml Output Urine Total 1415 ml # [place] 5 General: Alert, Oriented X3, Cooperative HEENT: Atraumatic, PERRLA Neck: Supple, No JVD, No Thyromegaly Lungs: Clear to Auscultation, Normal Air Movement Heart: Normal S1, Normal S2, No Murmurs, Other (Atrial fibrillation) Abdomen: Normal Bowel Sounds, Soft, No Hepatosplenomegaly, No Masses Extremities: No Clubbing, No Cyanosis, No Edema, Normal Pulses, No Tenderness/Swelling Skin: No Rashes, No Breakdown, No Significant Lesion Neuro: Normal Speech Psych/Mental Status: Mental Status NL, Mood NL Results Lab Laboratory Tests 06/06/22 03:18 A/P-Cardiology Admission Diagnosis Hypotensive shock Atrial fibrillation Gastric tumor UTI Assessment/Plan Hypotension, status post hypovolemic shock Blood pressure is better, heart rate is better. Patient has been having nausea and loss of appetite, Scheduled for feeding tube placement Atrial fibrillation, borderline tachycardia History of chronic atrial fibrillation followed by a apartment hotel manager at [facility]. Had transient episode of tachycardia, did not tolerate Cardizem drip Tolerating digoxin well, I will check dig level Status post TIA occurred on June 03, 2022 slurred speech and weakness. CT of the head without contrast was negative. Tolerating heparin drip well. Continue to monitor H&H and platelets. [id number] score 4, has been off anticoagulation since admission, started on heparin drip 2D echo was done on June 01, 2022 showing normal LV size with a EF 55%, pulmonary hypertension with PA pressure 40 to 45 mmHg, moderate mitral regurgitation, mild aortic valve stenosis No recent cardiac work-up to evaluate for any ischemic heart disease Patient had extensive family history, atrial fibrillation, was scheduled for a stress test on June 06 which was canceled. Currently asymptomatic. Pleural effusion, ascites, continue with IV fluid for now and monitor. UTI. Received antibiotic Strong family history of heart disease. Preoperative cardiac evaluation, patient is considered at intermediate to high risk for perioperative cardiovascular complications, decision regarding surgery, risk versus benefit is deferred to the surgeon NARDA GARCIA MD Jun 06, 2022 08:30
--- NOTE | 2022-06-06 08:41 | Progress Note - Surgery ---
JOHN HARRIS 06/06/22 0841: Subjective Date Seen by a Provider: Jun 06, 2022 Time Seen by a Provider: 08:34 Subjective/Events-last exam Patient to have Diagnostic Laparoscopy today with possible J tube placement. She states her children will be coming to the hospital for that today. Family says they do not want the patient to have thoracentesis any more after patient's lung doctor advised fluid collection would just come back after the procedure. She denies any pain at the moment, but is still having nausea and vomiting. She states that her cough has been improving with less sputum production. Seen by cardiology this morning and continues to have Afib, but still ok to proceed with procedure. Review of Systems General: No Chills; Fatigue Pulmonary: Dyspnea; No Cough Cardiovascular: No: Chest Pain, Palpitations Gastrointestinal: Nausea, Vomiting; No: Abdominal Pain Focused Exam Lactate Level 06/03/22 10:23: Lactic Acid Level 1.11 Objective Exam Vital Signs Date Time Temp Pulse Resp B/P (MAP) Pulse Ox O2 Delivery O2 Flow Rate FiO2 06/06/22 07:37 36.1 92 18 127/67 (87) 100 Nasal Cannula 1.00 06/06/22 06:00 90 20 114/68 (83) 100 Nasal Cannula 1.00 06/06/22 05:00 89 18 112/53 (72) 100 Nasal Cannula 1.00 06/06/22 04:00 89 18 118/62 (80) 100 Nasal Cannula 1.00 06/06/22 03:25 36.2 84 21 109/64 (79) 100 Nasal Cannula 1.00 06/06/22 03:24 Nasal Cannula 1.00 06/06/22 03:00 85 19 109/62 (78) 100 Nasal Cannula 1.00 06/06/22 02:00 93 23 105/63 (77) 100 Nasal Cannula 1.00 06/06/22 01:03 82 06/06/22 01:00 83 15 107/57 (74) 100 Nasal Cannula 1.00 06/05/22 23:57 Nasal Cannula 1.00 06/05/22 23:55 36.4 95 17 118/66 (83) 99 Nasal Cannula 1.00 06/05/22 23:00 92 21 104/51 (68) 98 Nasal Cannula 2.00 06/05/22 22:00 89 18 107/52 (70) 97 Nasal Cannula 2.00 06/05/22 21:15 100 Room Air 06/05/22 21:00 84 19 103/58 (73) 98 Nasal Cannula 2.00 06/05/22 20:00 111 20 100/65 (77) 95 Nasal Cannula 2.00 06/05/22 19:43 Nasal Cannula 2.00 06/05/22 19:10 138 06/05/22 19:00 36.2 100 16 129/66 (87) 92 Nasal Cannula 2.00 06/05/22 18:00 79 19 118/66 (83) 100 Nasal Cannula 2.00 06/05/22 17:00 89 18 110/58 (75) 92 Nasal Cannula 2.00 06/05/22 16:00 105 22 124/74 (91) 100 Nasal Cannula 2.00 06/05/22 16:00 Nasal Cannula 2.00 06/05/22 15:22 93 Nasal Cannula 1.00 06/05/22 15:22 83 93 24 06/05/22 15:00 88 20 115/72 (86) 93 Nasal Cannula 2.00 06/05/22 14:00 84 20 110/83 (92) 99 Nasal Cannula 2.00 06/05/22 13:00 96 21 118/76 (90) 97 Nasal Cannula 2.00 06/05/22 13:00 90 06/05/22 12:00 Nasal Cannula 2.00 06/05/22 12:00 110 21 120/62 (81) 94 Nasal Cannula 2.00 06/05/22 11:56 36.1 06/05/22 11:00 112 18 117/65 (82) 91 Nasal Cannula 2.00 06/05/22 10:06 97 Nasal Cannula 2.00 06/05/22 10:00 92 23 120/71 (87) 95 Nasal Cannula 2.00 06/05/22 09:00 99 12 129/75 (93) 97 Nasal Cannula 2.00 I & O 06/06/22 07:00 Intake Total 925 ml Output Total 1310 ml Balance -385 ml Capillary Refill : Less Than 3 Seconds General Appearance: Thin, Other (Frail and pale) HEENT: PERRL/EOMI Neck: Full Range of Motion, Normal Inspection Respiratory: No Accessory Muscle Use, No Respiratory Distress, Crackles (very mild crackles on lung bases, but improved from prior exams), Wheezing (mild wheezing bilaterally) Cardiovascular: No Murmur, Irregularly Irregular Peripheral Pulses: 2+ Dorsalis Pedis (R), 2+ Left Dors-Pedis (L), 2+ Radial Pulses (R), 2+ Radial Pulses (L) Gastrointestinal: non tender, soft; No hernia Extremity: No Pedal Edema Neurologic/Psychiatric: Alert, Oriented x3 Skin: Warm/Dry, Pallor Lymphatic: No Adenopathy (cervical, axillary) Results Lab Laboratory Tests 06/05/22 11:33: Glucometer 78 06/05/22 12:00: Activated Partial Thromboplast Time 41H 06/05/22 18:57: Activated Partial Thromboplast Time 84H 06/05/22 23:54: Glucometer 81 06/06/22 03:18: White Blood Count 5.7, Red Blood Count 3.03L, Hemoglobin 9.3L, Hematocrit 30L, Mean Corpuscular Volume 99, Mean Corpuscular Hemoglobin 31, Mean Corpuscular Hemoglobin Concent 31L, Red Cell Distribution Width 15.6H, Platelet Count 227, Mean Platelet Volume 9.8, Immature Granulocyte % (Auto) 1, Neutrophils (%) (Auto) 69, Lymphocytes (%) (Auto) 16, Monocytes (%) (Auto) 11, Eosinophils (%) (Auto) 3, Basophils (%) (Auto) 1, Neutrophils # (Auto) 4.0, Lymphocytes # (Auto) 0.9L, Monocytes # (Auto) 0.6, Eosinophils # (Auto) 0.2, Basophils # (Auto) 0.0, Immature Granulocyte # (Auto) 0.0, Prothrombin Time 16.1H, INR Comment 1.3, Sodium Level 144, Potassium Level 3.5L, Chloride Level 116H, Carbon Dioxide Level 19L, Anion Gap 9, Blood Urea Nitrogen 9, Creatinine 0.60, Estimat Glomerular Filtration Rate 89, BUN/Creatinine Ratio 15, Glucose Level 88, Calcium Level 7.7L, Corrected Calcium 9.0, Magnesium Level 1.7, Total Bilirubin 0.6, Aspartate Amino Transf (AST/SGOT) 11, Alanine Aminotransferase (ALT/SGPT) 6, Alkaline Phosphatase 58, Total Protein 4.6L, Albumin 2.4L Microbiology 06/04/22 Gram Stain - Final, Resulted 06/04/22 Sputum Culture - Preliminary, Resulted YEAST 06/03/22 Blood Culture - Preliminary, Resulted No growth 05/31/22 Urine Culture - Final, Complete NO GROWTH Assessment/Plan Assessment/Plan Assessment/Plan Gastric/Antral thickening Malnutrition - poor PO intake TIA 06/03/22 Pleural Effusion Ascites Weight loss, N/V, Anemia UTI- no growth on culture Afib, HTN I spoke with pt and her children, I also talked to Dr. Manning and right now we unfortunately still don't know what is going on. In addition, she is not able to eat and getting weaker. We discussed Diagnostic laparoscopy to look at stomach and duodenum possibly do a biopsy, may also place a J-tube for nutrition. Clinical Quality Measures DVT/VTE Risk/Contraindication: Contraindications-Pharm: Other *list below* Other: gastric cancer needs EGD JUANCHO MITCHELL DO 06/06/22 1341: Subjective Time Seen by a Provider: 11:59 Subjective/Events-last exam Pt seen and examined, in [facility] prior to going to OR. Daughter at bedside with multiple questions. Review of Systems General: No Chills; Fatigue Pulmonary: Dyspnea; No Cough Cardiovascular: No: Chest Pain, Palpitations Gastrointestinal: Nausea, Vomiting; No: Abdominal Pain Objective Exam General Appearance: Thin, Other (Frail and pale) HEENT: PERRL/EOMI Respiratory: No Accessory Muscle Use, No Respiratory Distress, Crackles (very mild crackles on lung bases, but improved from prior exams), Wheezing (mild wheezing bilaterally) Cardiovascular: No Murmur, Irregularly Irregular Gastrointestinal: non tender, soft; No hernia Extremity: No Pedal Edema Neurologic/Psychiatric: Alert, Oriented x3 Assessment/Plan Assessment/Plan Assessment/Plan Gastric/Antral thickening Malnutrition - poor PO intake TIA 06/03/22 Pleural Effusion Ascites Weight loss, N/V, Anemia UTI- no growth on culture Afib, HTN I spoke with pt and her Daughter, answering all questions. She was concerned mainly about the thoracentesis because surgeon at told her not to remove it. I believe the surgeon was talking about the capsule, not the fluid. Daughter stated it did take up 1/3 of lung. I explained that now it was at least 3/4 of the lung (per CT). Plan to do Diagnostic laparoscopy to look at stomach and duodenum possibly do a biopsy, may also place a J-tube for nutrition. Daughter and pt both agree to thoracentesis. Supervisory-Addendum Brief Verification & Attestation Participated in pt care: history, MDM, physical Personally performed: exam, history, MDM, supervision of care Care discussed with: Medical Student Procedures: n/a Verification and Attestation of Medical Student E/M Service A medical student performed and documented this service. I then reviewed and ve rified all information documented by the medical student and made modifications to such information, when appropriate. I personally performed a physical exam, medical decision making and then discussed any differences between the notes and made revisions as necessary to create one note. Juancho Mitchell , 06/06/22 , 13:41 JOHN HARRIS Jun 06, 2022 08:41 JUANCHO MITCHELL DO Jun 06, 2022 13:41
--- NOTE | 2022-06-06 09:59 | Physical Therapy Progress Note ---
Therapy Progress Note Patient on hold per RN due to prepping for surgery on this date. PT will reassess in PRAMOD Díaz PT Jun 06, 2022 09:59
[2022-06-06] MEDS ORDERED: LACTATED RINGERS 1,000 ML IV PRN (10:45)
--- NOTE | 2022-06-06 11:52 | Occ Therapy Progress Note ---
Therapy Progress Note Per nrsg: Pt being taken to surgery at this time. Pt on hold until tomorrow. MINNIE BONILLA Jun 06, 2022 11:52
[2022-06-06] MEDS ORDERED: SEVOFLURANE (ULTANE) 15 ML INHAL SOLN ONE ×2 (11:55→13:23)
[2022-06-06] MEDS ORDERED: proPOfol 200 MG/20 ML (DIPRIVAN) VIAL IV ONE (11:55)
[2022-06-06] MEDS ORDERED: fentaNYL INJ 100 MCG/2 ML AMP ONE (11:55)
[2022-06-06] MEDS ORDERED: ONDANSETRON 4 MG/2 ML (SDV) Z0FRAN ONE (11:55)
[2022-06-06] MEDS ORDERED: ROCURONIUM 10 MG/ML 5 ML SYRINGE IV ONE (11:55)
[2022-06-06] MEDS ORDERED: LIDOCAINE PF 2% 5 ML (XYLOCAINE) VIAL ONE (11:55)
[2022-06-06] MEDS ORDERED: LIDOCAINE/EPI 2% 1:200,00 (XYLOCAINE) 10 ML VIAL ONE (12:14)
[2022-06-06] MEDS ORDERED: PHENYLEPHRINE 100 MCG/ML 10 ML (ANESTHESIA) SYR ONE (12:19)
--- NOTE | 2022-06-06 12:19 | Progress Note - Hospitalist ---
AMEENA MORGAN 06/06/22 1219: Subjective HPI/CC On Admission Date Seen by Provider: Jun 06, 2022 Time Seen by Provider: 11:00 CC: Hypotension from hypovolemic shock HPI: This is an 81yoWF who presented to the ER with weakness and found to have hypotension from dehydration. She recently was placed on abx for UTI but she had no signs of sepsis. Abdominal pain prompted CT scan in ER and was found to have findings consistent with gastric outlet mass with mets so Dr Mitchell will have OAC held and perform scope with biopsies to confirm suspicion of cancer. Subjective/Events-last exam Feeling nauseous today. Didnt sleep well No acute pain or discomfort No questions or concerns Pt states eventually wanting to go home, briefly discussed goals of care Review of Systems Gastrointestinal: Nausea, Vomiting Objective Exam Vital Signs Vital Signs Date Time Temp Pulse Resp B/P (MAP) Pulse Ox O2 Delivery O2 Flow Rate FiO2 06/06/22 11:53 36.3 06/06/22 11:19 Nasal Cannula 1.00 06/06/22 09:00 100 20 121/83 (96) 100 06/05/22 15:22 24 Capillary Refill : Less Than 3 Seconds General Appearance: No Apparent Distress, WD/WN HEENT: PERRL/EOMI Neck: Full Range of Motion, Normal Inspection Respiratory: Chest Non Tender, No Accessory Muscle Use, No Respiratory Distress, Crackles (decreased), Wheezing (persistent from yesterday) Cardiovascular: No Edema, No Gallop, No JVD, No Murmur, Normal Peripheral Pulses, Irregularly Irregular Gastrointestinal: Normal Bowel Sounds, No Organomegaly, Mass, Tenderness Extremity: Normal Capillary Refill, Normal Inspection, Non Tender, No Pedal Edema Neurologic/Psychiatric: Alert, Oriented x3, No Motor/Sensory Deficits, Normal Mood/Affect Skin: Normal Color, Warm/Dry Results/Procedures Lab Laboratory Tests 06/06/22 03:18 Patient resulted labs reviewed. Imaging: Reviewed Imaging Films, Reviewed Imaging Report Assessment/Plan Assessment and Plan Assess & Plan/Chief Complaint Ms. Dariela Sher is a 81 y/o F with past medical history of anemia, atrial fibrillation, HLD, and recent UTI who was admitted for weakness and found to be hypotensive secondary to dehydration. 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 AFP, CEA, CA19-9 all WNL. Biopsy results preliminary read as no obvious cancer. Plan for diagnostic laprascopy with possible J tube placement and thoracentesis. Diagnosis/Problems Diagnosis/Problems (1) Duodenal mass Status: Acute Assessment & Plan: EGD on 06/02 with signs of duodenal mass, purplish gastric inflammation, and hiatal hernia. 5 biopsies were obtained during the EGD which are still pending. 06/04: CA 19-9, CEA, and AFP are negative. 06/05: preliminary read of biopsy is that there is no obvious cancer. Dr. Gunn discussed with general surgery. - Surgery planning diagnostic laprascopy with possible J tube placement and thoracentesis. (2) Gastric outlet obstruction Status: Acute Assessment & Plan: - Cont to monitor nausea and vomiting (3) TIA (transient ischemic attack) Status: Resolved Assessment & Plan: 06/03 PM patient had episode of aphasia and right sided weakness. Pt had CT Head nonCon which showed no acute intracranial findings, did show some mod to sev parenchymal volume loss. Patient's symptoms resolved shortly after CT head. Patient was started on a Heparin Drip since anticoagulation had been held during her hospitalization. - D/c Heparin drip for procedure. - will need to resume heparin post-procedure or transition to OACs if able to tolerate PO Resolution Date/Time: 06/05/22 @ 12:21 (4) Leukocytosis Status: Resolved Assessment & Plan: 06/03/22 WBC of 15.4, up from 6.6 on 06/02. Patient denies fevers or chills. Some coarse crackles on lung auscultation. On EGD, noted to have some food particles in the trachea which were removed, but concern for aspiration pneumonia. Procal of 1.07, LA 1.11. 06/03 CXR with unchanged [id number] R pleural effusion, no obvious consolidation or increase in infiltrates. 06/04: WBC of 10.0. 06/05: WBC of 7.5, prelim of yeast in sputum 06/06: WBC 5.7 - Blood cultures pending, no growth to date. - Cont Zosyn 4.5 mg IV q8 hours (started 06/03) - Cont Fluconazole (started 06/05) - s/p Ceftriaxone (05/31-06/03) Resolution Date/Time: 06/04/22 @ 11:43 (5) Generalized weakness Status: Chronic Assessment & Plan: - PT/OT ordered (6) Hypotension Status: Resolved Assessment & Plan: - Off pressors - Cont Lactated Ringers at 100ml/hr Qualifiers: Qualified Codes: I95.9 - Hypotension, unspecified Resolution Date/Time: 06/05/22 @ 12:22 (7) Atrial fibrillation with rapid ventricular response Status: Chronic Assessment & Plan: - Cont Digoxin 0.125 mg daily - Digoxin level ordered - Holding AC perioperatively, will need to either restart Heparin or OAC if tolerating PO. (8) Dehydration Status: Resolved (9) Weight loss Status: Chronic (10) Hypothyroidism Status: Chronic Assessment & Plan: - Cont Levothyroxine 112 mcg daily Clinical Quality Measures DVT/VTE Risk/Contraindication: Contraindications-Pharm: Other *list below* Other: gastric cancer needs EGD STELLA GUNN DO 06/06/224: Subjective Subjective/Events-last exam Pt is having an exploratory laparoscopy with J tube placement by Dr. Mitchell Also thoracentesis will be a possibility I did confer with Dr. 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 It wouldn't be anything that a J tube would be able to be placed Supervisory-Addendum Brief Verification & Attestation Participated in pt care: history, MDM, physical Personally performed: exam, history, MDM, supervision of care Care discussed with: Medical Student Procedures: n/a Results interpretation: Verified all documentation Verification and Attestation of Medical Student E/M Service A medical student performed and documented this service in my presence. I reviewed and verified all information documented by the medical student and made modifications to such information, when appropriate. I personally performed the physical exam and medical decision making. Stella Gunn, Jun 06, 2022,21:04 AMEENA MORGAN Jun 06, 2022 12:19 STELLA GUNN DO Jun 06, 2022 21:04
[2022-06-06] MEDS ORDERED: LIDOCAINE/EPI 2% 1:100,00 (XYLOCAINE) 20 ML VIAL IJ ONE (13:29)
--- NOTE | 2022-06-06 13:44 | Progress Note-Post Operative ---
Post-Operative Progess Note Surgeon (s)/Meter Record Clerk (s) Surgeon JESICA RIBERA DO Meter Record Clerk: Luke Pre-Operative Diagnosis Gastric/Antral and Duodenal thickening, malnourished Post-Operative Diagnosis Gastric mass Peritoneal seeding Ascites Pleural fluid Procedure & Operative Findings Date of Procedure 06/06/22 Procedure Performed/Findings Diagnostic Laparoscopy with intraperitoneal bx Drainage of Ascites Thoracentesis Anesthesia Type GET Estimated Blood Loss Estimated blood loss (mL): scant Specimens/Packing Specimens Removed pertioneal mass/seeding peritoneal fluid pleural fluid JESICA RIBERA DO Jun 06, 2022 13:44
[2022-06-06] MEDS ORDERED: fentaNYL INJ 100 MCG/2 ML AMP IVP ONE (13:45)
[2022-06-06] MEDS ORDERED: ONDANSETRON 4 MG/2 ML (SDV) Z0FRAN IVP PRN (13:45)
--- NOTE | 2022-06-06 14:01 | Diagnostic Imaging Report ---
Indication: Postthoracentesis Compared with radiograph of earlier this same date. There is no pneumothorax. Elevated right diaphragm redemonstrated. Lung volumes have improved in the interim. Heart mildly enlarged but unchanged. There is some borderline vascular congestion unchanged. Left IJ catheter remains looped in the left innominate with its distal component directed retrograde to project over the medial 3rd of the left subclavian. This is unchanged. Impression: No pneumothorax post thoracentesis. Improved lung expansion. Malpositioning of the left IJ catheter unchanged. Dictated by: Dictated on workstation # [id number]
[2022-06-06] MEDS ORDERED: HEParin 1000 UNIT/ML (10ML VIAL) FOR BOLUS IV NR (17:30)
--- NOTE | 2022-06-07 03:01 | OPERATIVE REPORT ---
DATE OF SERVICE: 06/06/2022 PREOPERATIVE DIAGNOSES: Gastric/antral and duodenal thickening with malnourishment, pleural fluid. POSTOPERATIVE DIAGNOSES: 1. Gastric mass. 2. Peritoneal seeding. 3. Ascites. 4. Pleural fluid. PROCEDURES: 1. Diagnostic laparoscopy with intraperitoneal biopsy. 2. Drainage of ascites. 3. Thoracentesis. SURGEON: Juancho Mitchell DO. CAR SERVICER: Bryce Butler DO. ANESTHESIA: General endotracheal tube. SPECIMENS: 1. Peritoneal mass/feeding. 2. Peritoneal fluid. 3. Pleural fluid. BLOOD LOSS: Scant. FLUIDS: Per anesthesia. POSTOPERATIVE CONDITION: Stable. INDICATION FOR PROCEDURE: The patient is an 81-year-old female who had some gastric/antral and duodenal thickening. EGD did not find anything. She has been having nausea, vomiting, unable to eat. The thought was to see if we could see what was going on in the outside and possibly to place a jejunostomy tube. She also noted to have large pleural effusion that was much larger than it had been and discussion to do a thoracentesis of the right lung. FINDINGS: The patient had unfortunately what looked like masses on the stomach as well as the small bowel, the duodenum and the peritoneal seeding. Multiple pictures were taken. She also had a lot of ascitic fluid. PROCEDURE NOTE: After informed consent was obtained, the patient was brought to the operating room, placed on the operating table in supine position. She was sterilely prepped and draped in normal fashion. Local lidocaine was used to infiltrate the skin above the umbilicus. I made the incision with 11 blade, carried down through skin and subcutaneous tissue, then deepened down to subcutaneous tissue with Bovie electrocautery down to fascia. Fascia was incised with Bovie electrocautery and bluntly entered the abdomen. Immediately upon entering with S retractor, got out lot of fluid, placed 0 Vicryl [id number] suture, then placed limited trocar port under direct visualization. Created pneumoperitoneum, placed the camera and upon entry, noted masses on the stomach as well as on the small bowel, the duodenum and then peritoneal seeding. Took pictures of this, placed a 5 mm port and then suctioned out the fluid in the abdomen, the ascites, suctioned out about 800 fluid and then sent this to pathology and then suctioned out another 2000 mL, elected to do biopsies, take portions of this peritoneal seeding off the abdominal wall, used the graspers to pull this off, put multiple specimens, sent one for frozen and then sent the rest for normal pathology in formalin. At this point, I then broke scrub and went out and talked to the family members, wanted to find out if they wanted me to proceed with a jejunostomy tube. After discussion with me, they decided, they did not want to do that, would rather have the patient made the decision because she might need to be on hospice, went back in, we took all the instruments out, closed the supraumbilical incision with 0 Vicryl [id number] suture and then closed the supraumbilical incision, the 5 mm incisions in the right upper quadrant. This had been placed with local lidocaine, 11 blade for stab incision and VersaStep system, all done under direct visualization. These were closed with rigo. The patient was then rotated onto her left side. Her right back was sterilely prepped and draped and then made a small stab incision with #11 blade just over the top of the eighth or ninth rib and then advanced the thoracentesis needle, went in easily, got a flash of a brownish liquid and then hooked this up to vacutainer and advanced the catheter and pulled the needle out and hooked this up to the vacutainer and only got about 500 mL out. This was then removed and occlusive dressing placed. The patient was then transferred to recovery room in stable condition. Sponge, instrument and needle count correct at the end of the case. Dr. Butler assisted on this case helping to make incisions, close incisions, identify anatomy, hold anatomy out of the way. Job ID: [id number] DocumentID: [id number] Dictated Date: 06/06/2022 19:23:15 Senior Hr Business Partner Date: 06/07/2022 03:00:53 Dictated By: DO JULIET COLEY
[2022-06-07] MEDS: NS IV 1000 ML 1,000 ML IV SCH ×2 (03:09→08:00)
[2022-06-07 03:24] LABS: BASOPHILS % (AUTO) 0 % (0-10); EOSINOPHILS % (AUTO) 0 % (0-10); HEMATOCRIT 30 % (35-52); HEMOGLOBIN 9.5 g/dL (11.5-16.0); LYMPHOCYTES # (AUTO) 0.9 10^3/uL (1.0-4.0); LYMPHOCYTES % (AUTO) 15 % (12-44); MEAN CORPUSCULAR HEMOGLOBIN 31 pg (25-34); MEAN CORPUSCULAR HGB CONC 31 g/dL (32-36); MEAN CORPUSCULAR VOLUME 98 fL (80-99); MEAN PLATELET VOLUME 9.7 fL (9.0-12.2); MONOCYTES # (AUTO) 0.3 10^3/uL (0.0-1.0); MONOCYTES % (AUTO) 5 % (0-12); NEUTROPHILS # (AUTO) 4.9 10^3/uL (1.8-7.8); NEUTROPHILS % (AUTO) 79 % (42-75); PLATELET COUNT 225 10^3/uL (130-400); WHITE BLOOD COUNT 6.2 10^3/uL (4.3-11.0)
[2022-06-07 03:38] LABS: ALBUMIN 2.3 GM/DL (3.2-4.5)
[2022-06-07 03:39] LABS: CHLORIDE 116 MMOL/L (98-107); POTASSIUM 3.8 MMOL/L (3.6-5.0); SODIUM 145 MMOL/L (135-145)
[2022-06-07 03:40] LABS: CALCIUM 7.8 MG/DL (8.5-10.1)
[2022-06-07 03:41] LABS: GLUCOSE 118 MG/DL (70-105); TOTAL PROTEIN 4.4 GM/DL (6.4-8.2)
[2022-06-07 03:42] LABS: CARBON DIOXIDE 17 MMOL/L (21-32)
[2022-06-07 03:43] LABS: BILIRUBIN,TOTAL 0.5 MG/DL (0.1-1.0)
[2022-06-07 03:44] LABS: ALKALINE PHOSPHATASE 54 U/L (40-136); PHOSPHORUS 2.1 MG/DL (2.3-4.7)
[2022-06-07 03:45] LABS: CREATININE SERUM 0.62 MG/DL (0.60-1.30); GFR ESTIMATED 88
[2022-06-07 03:46] LABS: BUN/CREATININE RATIO 19
[2022-06-07 03:47] LABS: MAGNESIUM 1.6 MG/DL (1.6-2.4)
[2022-06-07 03:48] LABS: ALANINE AMINOTRANSFERASE < 6 U/L (0-55)
[2022-06-07] MEDS: PIPERACILLIN SODIUM/TAZOBACTAM 4.5 GM in NS (IVPB) 100 ML IV SCH ×2 (04:23→13:24)
[2022-06-07] MEDS: MAGNESIUM 1 GM/100 ML IVPB 100 ML IV SCH (04:23)
[2022-06-07] MEDS ORDERED: NS IV 500 ML 500 ML IV PRN (05:30)
[2022-06-07] MEDS ORDERED: MAGNESIUM 1 GM/100 ML IVPB 100 ML IV SCH (06:00)
[2022-06-07] MEDS ORDERED: KCL 20 MEQ TAB (K-DUR) PO SCH (06:00)
[2022-06-07] MEDS ORDERED: POTASSIUM CL 10MEQ/50ML IVPB 50 ML IV SCH (06:00)
[2022-06-07] MEDS: LEVOTHYROXINE 112 MCG (LEVOTHROID) TAB PO SCH (06:10)
[2022-06-07] MEDS: RT-ALBUTEROL SULF 2.5 MG/3 ML PRE-MIX VIAL INH SCH (06:55)
--- NOTE | 2022-06-07 08:39 | Progress Note - Surgery ---
JOHN HARRIS 06/07/22 0839: Subjective Date Seen by a Provider: Jun 07, 2022 Time Seen by a Provider: 08:34 Subjective/Events-last exam Patient is awake today. She still has left sided facial droop and some difficulty speaking. She denies any shortness of breath and is not wearing any oxygen currently. Denies any nausea or vomiting. Dressings are clean and dry. Review of Systems General: No Chills, No Night Sweats Pulmonary: No Dyspnea, No Cough Cardiovascular: No: Chest Pain, Palpitations Gastrointestinal: No: Nausea, Vomiting, Abdominal Pain Objective Exam Vital Signs Date Time Temp Pulse Resp B/P (MAP) Pulse Ox O2 Delivery O2 Flow Rate FiO2 06/07/22 08:00 86 21 115/81 (92) 97 Room Air 06/07/22 07:00 80 19 122/63 (82) 96 Room Air 06/07/22 07:00 79 06/07/22 06:55 96 Room Air 06/07/22 06:00 80 17 112/67 (82) 95 Room Air 06/07/22 05:00 87 19 124/75 (91) 94 Room Air 06/07/22 04:00 88 19 130/71 (90) 92 Room Air 06/07/22 03:58 93 Room Air 06/07/22 03:25 36.1 06/07/22 03:00 72 15 119/74 (89) 90 Room Air 06/07/22 02:00 76 16 116/57 (76) 95 Room Air 06/07/22 01:00 92 18 122/81 (95) 95 Room Air 06/07/22 01:00 93 06/07/22 00:00 93 19 126/59 (81) 96 Room Air 06/06/22 23:42 35.9 06/06/22 23:41 95 Room Air 06/06/22 23:00 89 18 103/56 (72) 95 Room Air 06/06/22 22:00 96 19 117/69 (85) 96 Room Air 06/06/22 21:37 96 Room Air 06/06/22 21:00 96 Room Air 06/06/22 21:00 77 19 119/70 (86) 96 Room Air 06/06/22 20:00 82 18 123/75 (91) 96 Room Air 10/6/22 19:38 35.8 06/06/22 19:00 100 18 122/75 (91) 95 Room Air 06/06/22 19:00 85 06/06/22 18:00 92 21 105/66 (79) 95 Room Air 06/06/22 17:00 84 20 121/69 (86) 94 Room Air 06/06/22 16:05 35.8 92 20 108/78 (88) 94 Room Air 06/06/22 15:00 80 16 112/60 (77) 92 Room Air 06/06/22 14:30 36.5 18 122/74 (90) 93 Room Air 06/06/22 14:30 Room Air 06/06/22 14:20 18 120/70 (87) 93 Room Air 06/06/22 14:19 Room Air 06/06/22 14:11 OxyMask 3.00 06/06/22 14:10 18 126/71 (89) 98 Face Tent 3.00 06/06/22 14:05 OxyMask 4.00 06/06/22 14:01 OxyMask 6.00 06/06/22 14:00 18 123/85 (98) 99 OxyMask 6.00 06/06/22 14:00 126/68 (87) Room Air 06/06/22 13:51 OxyMask 6.00 06/06/22 13:50 18 131/79 (96) 99 OxyMask 6.00 06/06/22 13:44 OxyMask 6.00 06/06/22 13:40 18 116/71 (86) 97 OxyMask 6.00 06/06/22 13:30 OxyMask 6.00 06/06/22 13:30 36.3 18 124/62 (82) 100 OxyMask 6.00 06/06/22 11:53 36.3 06/06/22 11:19 Nasal Cannula 1.00 06/06/22 11:00 92 27 130/64 (86) 100 Nasal Cannula 1.00 06/06/22 10:00 84 18 120/62 (81) 99 Nasal Cannula 1.00 06/06/22 09:00 100 20 121/83 (96) 100 Nasal Cannula 1.00 I & O 06/07/22 07:00 Intake Total 1450 ml Output Total 875 ml Balance 575 ml Capillary Refill : Less Than 3 Seconds General Appearance: Thin, Other (Frail and pale) HEENT: PERRL/EOMI Neck: Full Range of Motion, Normal Inspection Respiratory: No Accessory Muscle Use, No Respiratory Distress, Crackles (very mild crackles on lung bases, but improved from prior exams), Wheezing (mild wheezing bilaterally) Cardiovascular: No Murmur, Irregularly Irregular Peripheral Pulses: 2+ Dorsalis Pedis (R), 2+ Left Dors-Pedis (L), 2+ Radial Pulses (R), 2+ Radial Pulses (L) Gastrointestinal: non tender, soft; No hernia Extremity: No Pedal Edema Neurologic/Psychiatric: Alert, Facial Droop (left) Skin: Normal Color, Warm/Dry Lymphatic: No Adenopathy (cervical, axillary) Results Lab Laboratory Tests 06/06/22 11:36: Glucometer 84 06/06/22 17:10: Activated Partial Thromboplast Time 28 06/06/22 18:15: Glucometer 80 06/06/22 21:44: Activated Partial Thromboplast Time > 200*H 06/06/22 23:39: Glucometer 119H 06/07/22 03:10: White Blood Count 6.2, Red Blood Count 3.10L, Hemoglobin 9.5L, Hematocrit 30L, Mean Corpuscular Volume 98, Mean Corpuscular Hemoglobin 31, Mean Corpuscular Hemoglobin Concent 31L, Red Cell Distribution Width 15.8H, Platelet Count 225, Mean Platelet Volume 9.7, Immature Granulocyte % (Auto) 1, Neutrophils (%) (Auto) 79H, Lymphocytes (%) (Auto) 15, Monocytes (%) (Auto) 5, Eosinophils (%) (Auto) 0, Basophils (%) (Auto) 0, Neutrophils # (Auto) 4.9, Lymphocytes # (Auto) 0.9L, Monocytes # (Auto) 0.3, Eosinophils # (Auto) 0.0, Basophils # (Auto) 0.0, Immature Granulocyte # (Auto) 0.0, Activated Partial Thromboplast Time 116*H, Sodium Level 145, Potassium Level 3.8, Chloride Level 116H, Carbon Dioxide Level 17L, Anion Gap 12, Blood Urea Nitrogen 12, Creatinine 0.62, Estimat Glomerular Filtration Rate 88, BUN/Creatinine Ratio 19, Glucose Level 118H, Calcium Level 7.8L, Corrected Calcium 9.2, Phosphorus Level 2.1L, Magnesium Level 1.6, Total Bilirubin 0.5, Aspartate Amino Transf (AST/SGOT) 11, Alanine Aminotransferase (ALT/SGPT) < 6, Alkaline Phosphatase 54, Total Protein 4.4L, Albumin 2.3L, Digoxin Level 0.75L Microbiology 06/04/22 Gram Stain - Final, Complete 06/04/22 Sputum Culture - Final, Complete YEAST 06/03/22 Blood Culture - Preliminary, Resulted No growth 05/31/22 Urine Culture - Final, Complete NO GROWTH Assessment/Plan Assessment/Plan Assessment/Plan Gastric/Antral thickening Malnutrition - poor PO intake TIA 06/03/22 Pleural Effusion Ascites Weight loss, N/V, Anemia UTI- no growth on culture Afib, HTN Plan: Continue to monitor labs. Discussed results of ex lap with family and patient showing metastasis throughout the abdominal cavity. Patient states she does not want cancer treatment. Discussed other options like having J tube placed and its complications with patient and family. She is agreeable to going home with hospice care. She will be NPO. cone worker to talk with patient and family. Clinical Quality Measures DVT/VTE Risk/Contraindication: Contraindications-Pharm: Other *list below* Other: gastric cancer needs EGD JUANCHO MITCHELL DO 06/07/22 1152: Subjective Time Seen by a Provider: 10:01 Subjective/Events-last exam Pt seen and examined, she is lying in bed and appears comfortable. Signs of stroke are visible, she is talking (with slight slur) and is alert. Review of Systems General: Fatigue, Malaise Pulmonary: No Dyspnea, No Cough Cardiovascular: No: Chest Pain, Palpitations Gastrointestinal: No: Nausea, Vomiting, Abdominal Pain Neurological: Weakness, Change in speech Objective Exam General Appearance: Thin, Other (Frail and pale) HEENT: PERRL/EOMI Respiratory: No Accessory Muscle Use, No Respiratory Distress, Crackles (very mild crackles on lung bases, but improved from prior exams), Decreased Breath Sounds (right base), Wheezing (mild wheezing bilaterally) Cardiovascular: Irregularly Irregular Gastrointestinal: non tender, soft, other (incisions c/d/i) Neurologic/Psychiatric: Alert, Facial Droop (left) Assessment/Plan Assessment/Plan Assessment/Plan Gastric/Antral thickening Malnutrition - poor PO intake TIA 06/03/22 Pleural Effusion Ascites Weight loss, N/V, Anemia UTI- no growth on culture Afib, HTN Plan: Continue to monitor labs. Discussed results of ex lap with family and patient showing metastasis throughout the abdominal cavity. Patient states she does not want cancer treatment. Discussed other options like having J tube placed and its complications with patient and family. She doesn't want any cancer treatment. She will be NPO. cone worker to talk with patient and family. Supervisory-Addendum Brief Verification & Attestation Participated in pt care: history, MDM, physical Personally performed: exam, history, MDM, supervision of care Care discussed with: Medical Student Procedures: n/a Verification and Attestation of Medical Student E/M Service A medical student performed and documented this service. I then reviewed and verified all information documented by the medical student and made modifications to such information, when appropriate. I personally performed a physical exam, medical decision making and then discussed any differences between the notes and made revisions as necessary to create one note. Juancho Mitchell , 06/07/22 , 11:55 JOHN HARRIS Jun 07, 2022 08:39 JUANCHO MITCHELL DO Jun 07, 2022 11:52
[2022-06-07] MEDS: DOCUSATE SODIUM 100 MG (COLACE) CAP PO SCH (09:00)
[2022-06-07] MEDS: SENNOSIDES 8.6 MG (SENOKOT) TAB PO SCH (09:00)
--- NOTE | 2022-06-07 09:03 | Diagnostic Imaging Report ---
INDICATION: Pleural effusion. Frontal chest obtained at 4:03 a.m. and compared to 06/06/2022 FINDINGS: The heart is mildly enlarged. There is no change in right basilar atelectatic change versus infiltrate and small right pleural effusion. Left IJ catheter remains looped over the left innominate vein. There is no pneumothorax. IMPRESSION: Stable appearance compared to yesterday. No change in mild right basilar infiltrate versus atelectasis and small right pleural effusion. No new abnormality. Dictated by: Dictated on workstation # [id number]
[2022-06-07] MEDS: PANTOPRAZOLE 40 MG (PROTONIX) VIAL IV SCH (09:07)
[2022-06-07] MEDS: FLUCONAZOLE 100 MG/50 ML 50 ML IV SCH (09:07)
[2022-06-07] MEDS: DIGOXIN 0.25 MG/ML (LANOXIN) 2 ML AMP IV SCH (09:07)
--- NOTE | 2022-06-07 09:14 | Cardiology Progress Note ---
Subjective Date Seen by Provider: Jun 07, 2022 Time Seen by Provider: 09:11 Subjective/Events-last exam Patient is laying down in bed, unable to move her left side, trying to open her eyes, able to move her right arm Review of Systems General: Other (Unable to provide review of system) Objective-Cardiology Exam Last Set of Vital Signs Vital Signs 06/05/22 06/06/22 06/07/22 15:22 14:11 08:00 Temp 36.0 Pulse 86 Resp 21 B/P (MAP) 115/81 (92) Pulse Ox 97 O2 Delivery Room Air O2 Flow Rate 3.00 FiO2 24 I&O Intake and Output 06/07/22 00:00 Intake Total 250 ml Output Total 845 ml Balance -595 ml Intake Oral 0 ml IV Total 250 ml Output Urine Total 845 ml # Emes[place] 2 General: Alert, Cooperative, Mild Distress HEENT: Atraumatic, PERRLA Neck: Supple, No JVD, No Thyromegaly Lungs: Clear to Auscultation, Normal Air Movement Heart: Normal S1, Normal S2, No Murmurs, Other (Atrial fibrillation) Abdomen: Normal Bowel Sounds, Soft, No Hepatosplenomegaly, No Masses Extremities: No Clubbing, No Cyanosis, No Edema, Normal Pulses, No Tenderness/Swelling Skin: No Rashes, No Breakdown, No Significant Lesion Neuro: Other (Left hemiaplasia) Psych/Mental Status: Mental Status NL, Mood NL Results Lab Laboratory Tests 06/07/22 03:10 A/P-Cardiology Admission Diagnosis Hypotensive shock Atrial fibrillation Gastric tumor UTI Assessment/Plan Status post hypotension with hypovolemic shock Blood pressure is better Poor oral intake, status post jejunostomy tube Still unable to take any oral meds Managed by medical team Acute CVA, left hemiplegia Status post TIA on June 03, 2022 CT of the head was negative Probably need to repeat work-up Heparin was restarted. Has a feeding tube. Atrial fibrillation, borderline tachycardia History of chronic atrial fibrillation followed by a balance bridge assembler at [facility]. Had transient episode of tachycardia, did not tolerate Cardizem drip Tolerating digoxin well 2D echo was done on June 01, 2022 showing normal LV size with a EF 55%, pulmonary hypertension with PA pressure 40 to 45 mmHg, moderate mitral regurgitation, mild aortic valve stenosis No recent cardiac work-up to evaluate for any ischemic heart disease Patient had extensive family history, atrial fibrillation, was scheduled for a stress test on June 06 which was canceled. Currently asymptomatic. Pleural effusion, ascites, status postthoracentesis UTI. Received antibiotic Strong family history of heart disease. NARDA GARCIA MD Jun 07, 2022 09:14
--- NOTE | 2022-06-07 09:49 | Tele-ICU Progress Note ---
Subjective Date Seen by a Provider: Jun 07, 2022 Time Seen by a Provider: 09:43 Subjective/Events-last exam Last night developed more facial dropping and weakness, Failed her swallow study, Speech therapy to see pt BP has been ok 124/74, On digoxin for a fib, dig level 0.75 no CP or SOB, On IV heparin with PTT 112, will repeat CXR shows RLL atelectasis, with ? effusion Continues on IV Zosyn, also on fluconazole for yeast in sputum, probably not needed Will get new CT head looking for bleed or infarct Sepsis Event Evaluation Height, Weight, BMI Height: 5'6.00" Weight: 180lbs. oz. 81.991845er; 31.32 BMI Method:Stated Exam Exam Patient acknowledged, consented, and participated in this virtual visit which was conducted using real time audio/video Vital Signs Date Time Temp Pulse Resp B/P (MAP) Pulse Ox O2 Delivery O2 Flow Rate FiO2 06/07/22 08:00 36.0 06/07/22 08:00 86 21 115/81 (92) 97 Room Air 06/07/22 07:00 80 19 122/63 (82) 96 Room Air 06/07/22 07:00 79 06/07/22 06:55 96 Room Air 06/07/22 06:00 80 17 112/67 (82) 95 Room Air 06/07/22 05:00 87 19 124/75 (91) 94 Room Air 06/07/22 04:00 88 19 130/71 (90) 92 Room Air 06/07/22 03:58 93 Room Air 06/07/22 03:25 36.1 06/07/22 03:00 72 15 119/74 (89) 90 Room Air 06/07/22 02:00 76 16 116/57 (76) 95 Room Air 06/07/22 01:00 92 18 122/81 (95) 95 Room Air 06/07/22 01:00 93 06/07/22 00:00 93 19 126/59 (81) 96 Room Air 06/06/22 23:42 35.9 06/06/22 23:41 95 Room Air 06/06/22 23:00 89 18 103/56 (72) 95 Room Air 06/06/22 22:00 96 19 117/69 (85) 96 Room Air 06/06/22 21:37 96 Room Air 06/06/22 21:00 96 Room Air 06/06/22 21:00 77 19 119/70 (86) 96 Room Air 06/06/22 20:00 82 18 123/75 (91) 96 Room Air 06/06/22 19:38 35.8 06/06/22 19:00 100 18 122/75 (91) 95 Room Air 06/06/22 19:00 85 06/06/22 18:00 92 21 105/66 (79) 95 Room Air 06/06/22 17:00 84 20 121/69 (86) 94 Room Air 06/06/22 16:05 35.8 92 20 108/78 (88) 94 Room Air 06/06/22 15:00 80 16 112/60 (77) 92 Room Air 06/06/22 14:30 36.5 18 122/74 (90) 93 Room Air 06/06/22 14:30 Room Air 06/06/22 14:20 18 120/70 (87) 93 Room Air 06/06/22 14:19 Room Air 06/06/22 14:11 OxyMask 3.00 06/06/22 14:10 18 126/71 (89) 98 Face Tent 3.00 06/06/22 14:05 OxyMask 4.00 06/06/22 14:01 OxyMask 6.00 06/06/22 14:00 18 123/85 (98) 99 OxyMask 6.00 06/06/22 14:00 126/68 (87) Room Air 06/06/22 13:51 OxyMask 6.00 06/06/22 13:50 18 131/79 (96) 99 OxyMask 6.00 06/06/22 13:44 OxyMask 6.00 06/06/22 13:40 18 116/71 (86) 97 OxyMask 6.00 06/06/22 13:30 OxyMask 6.00 06/06/22 13:30 36.3 18 124/62 (82) 100 OxyMask 6.00 06/06/22 11:53 36.3 06/06/22 11:19 Nasal Cannula 1.00 06/06/22 11:00 92 27 130/64 (86) 100 Nasal Cannula 1.00 06/06/22 10:00 84 18 120/62 (81) 99 Nasal Cannula 1.00 I & O 06/07/22 07:00 Intake Total 1450 ml Output Total 875 ml Balance 575 ml Height & Weight Height: 5'6.00" Weight: 180lbs. oz. 81.708783eq; 31.32 BMI Method:Stated General Appearance: Thin, Other (Frail and pale) HEENT: PERRL/EOMI Neck: Full Range of Motion, Normal Inspection Respiratory: Lungs Clear, No Accessory Muscle Use, No Respiratory Distress, Crackles (very mild crackles on lung bases, but improved from prior exams), Decreased Breath Sounds, Wheezing (mild wheezing bilaterally) Cardiovascular: No Murmur, Irregularly Irregular Capillary Refill: Less Than 3 Seconds Peripheral Pulses: 2+ Dorsalis Pedis (R), 2+ Left Dors-Pedis (L), 2+ Radial Pulses (R), 2+ Radial Pulses (L) Gastrointestinal: normal bowel sounds, non tender, soft; No hernia Extremity: No Pedal Edema, Other (pt has been NPO) Neurologic/Psychiatric: Alert, No Motor/Sensory Deficits (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
--- NOTE | 2022-06-07 10:07 | Anesthesia-General Post-Op ---
General Patient Condition Mental Status/LOC: Same as Preop Cardiovascular: Satisfactory Nausea/Vomiting: Absent Respiratory: Satisfactory Pain: Controlled Complications: Absent Post Op Complications Complications None Follow Up Care/Instructions Patient Instructions None needed. Anesthesia/Patient Condition Patient Condition Patient is doing well, no complaints, stable vital signs, no apparent adverse anesthesia problems. No complications reported per nursing. YASH SILVEIRA DO Jun 07, 2022 10:07
--- NOTE | 2022-06-07 11:48 | Occ Therapy Progress Note ---
Therapy Progress Note At OT arrival, family speaking to Dr. Santa. Per Dr and family request, cancel OT orders as pt is not medically appropriate to participate at this time. Pt with possible discharge on hospice. Myah Mehta OT Jun 07, 2022 11:48
--- NOTE | 2022-06-07 12:16 | Speech Therapy Progress Note ---
Therapy Progress Note Speech pathology received the consultation, extensively reviewed the patient's medical chart, and attempted completion of the visit at 1200. The patient was lying in bed with eyes closed at this time. The patient's family member was present at bedside. The clinician introduced herself and the patient's family member stated, "We're not doing any of that." The clinician stated she comprehended the cancelation of the occupational and physical therapy orders, however, speech pathology is often utilized to assess for swallowing safety. With this the patient stated, "They won't give me anything, not even water." The clinician stated the patient may be N.P.O. pending evaluation by speech pathology. The patient's family member reported the patient is N.P.O. due to her recent surgical site and nausea ("We're not going to get into any of that."), repeating her wishes to politely refuse speech pathology. The patient does state, "No one understands me." The clinician provided intelligibility strategies to the patient, which she demonstrated and comprehended well. To respect the family's wishes and gentle refusal, the clinician will not proceed with a clinical swallowing evaluation. If speech pathology services are warranted, please re-consult as appropriate. BRANDEE KNIGHT Jun 07, 2022 12:16
--- NOTE | 2022-06-07 12:49 | Physical Therapy Progress Note ---
Therapy Progress Note Per Dr and family request, cancel PT orders as pt is not medically appropriate to participate at this time. Pt with possible discharge on hospice. CATARINA KEARNS PT Jun 07, 2022 12:49
--- NOTE | 2022-06-07 13:21 | Tele-ICU Progress Note ---
Subjective Date Seen by a Provider: Jun 07, 2022 Time Seen by a Provider: 13:19 Subjective/Events-last exam Spoke with medical attending Dr Santa, Pt has widespread cancer on explor lap, family has decided on comfort care only, Will forgo CT head Sepsis Event Evaluation Height, Weight, BMI Height: 5'6.00" Weight: 180lbs. oz. 81.932612mv; 31.32 BMI Method:Stated Exam Exam Patient acknowledged, consented, and participated in this virtual visit which was conducted using real time audio/video Vital Signs Date Time Temp Pulse Resp B/P (MAP) Pulse Ox O2 Delivery O2 Flow Rate FiO2 06/07/22 12:41 96 06/07/22 12:00 82 20 126/55 (78) 96 Room Air 06/07/22 11:00 92 17 122/78 (93) 95 Room Air 06/07/22 10:00 86 17 126/64 (84) 96 Room Air 06/07/22 09:00 98 19 124/74 (91) 92 Room Air 06/07/22 08:00 36.0 06/07/22 08:00 86 21 115/81 (92) 97 Room Air 06/07/22 07:00 80 19 122/63 (82) 96 Room Air 06/07/22 07:00 79 06/07/22 06:55 96 Room Air 06/07/22 06:00 80 17 112/67 (82) 95 Room Air 06/07/22 05:00 87 19 124/75 (91) 94 Room Air 06/07/22 04:00 88 19 130/71 (90) 92 Room Air 06/07/22 03:58 93 Room Air 06/07/22 03:25 36.1 06/07/22 03:00 72 15 119/74 (89) 90 Room Air 06/07/22 02:00 76 16 116/57 (76) 95 Room Air 06/07/22 01:00 92 18 122/81 (95) 95 Room Air 06/07/22 01:00 93 06/07/22 00:00 93 19 126/59 (81) 96 Room Air 06/06/22 23:42 35.9 06/06/22 23:41 95 Room Air 06/06/22 23:00 89 18 103/56 (72) 95 Room Air 06/06/22 22:00 96 19 117/69 (85) 96 Room Air 06/06/22 21:37 96 Room Air 06/06/22 21:00 96 Room Air 06/06/22 21:00 77 19 119/70 (86) 96 Room Air 06/06/22 20:00 82 18 123/75 (91) 96 Room Air 06/06/22 19:38 35.8 06/06/22 19:00 100 18 122/75 (91) 95 Room Air 06/06/22 19:00 85 06/06/22 18:00 92 21 105/66 (79) 95 Room Air 06/06/22 17:00 84 20 121/69 (86) 94 Room Air 06/06/22 16:05 35.8 92 20 108/78 (88) 94 Room Air 06/06/22 15:00 80 16 112/60 (77) 92 Room Air 06/06/22 14:30 36.5 18 122/74 (90) 93 Room Air 06/06/22 14:30 Room Air 06/06/22 14:20 18 120/70 (87) 93 Room Air 06/06/22 14:19 Room Air 06/06/22 14:11 OxyMask 3.00 06/06/22 14:10 18 126/71 (89) 98 Face Tent 3.00 06/06/22 14:05 OxyMask 4.00 06/06/22 14:01 OxyMask 6.00 06/06/22 14:00 18 123/85 (98) 99 OxyMask 6.00 06/06/22 14:00 126/68 (87) Room Air 06/06/22 13:51 OxyMask 6.00 06/06/22 13:50 18 131/79 (96) 99 OxyMask 6.00 06/06/22 13:44 OxyMask 6.00 06/06/22 13:40 18 116/71 (86) 97 OxyMask 6.00 06/06/22 13:30 OxyMask 6.00 06/06/22 13:30 36.3 18 124/62 (82) 100 OxyMask 6.00 I & O 06/07/22 07:00 Intake Total 1450 ml Output Total 875 ml Balance 575 ml Height & Weight Height: 5'6.00" Weight: 180lbs. oz. 81.889730cx; 31.32 BMI Method:Stated General Appearance: Thin, Other (Frail and pale) HEENT: PERRL/EOMI Neck: Full Range of Motion, Normal Inspection Respiratory: No Accessory Muscle Use, No Respiratory Distress, Crackles (very mild crackles on lung bases, but improved from prior exams), Decreased Breath Sounds (right base), Wheezing (mild wheezing bilaterally) Cardiovascular: Irregularly Irregular Capillary Refill: Less Than 3 Seconds Peripheral Pulses: 2+ Dorsalis Pedis (R), 2+ Left Dors-Pedis (L), 2+ Radial Pulses (R), 2+ Radial Pulses (L) Gastrointestinal: non tender, soft, other (incisions c/d/i) Extremity: No Pedal Edema, Other (pt has been NPO) Neurologic/Psychiatric: Alert, Facial Droop (left) Skin: Normal Color, Warm/Dry Lymphatic: No Adenopathy (cervical, axillary) Results Lab Laboratory Tests 06/06/22 03:18 06/07/22 03:10 Assessment/Plan Assessment/Plan cancel CT head Critical Care: Critically Ill Patient Time spent with patient (mins): 15 ARMANDO CAAL MD Jun 07, 2022 13:21
[2022-06-07] MEDS ORDERED: BISACODYL 10 MG SUPP (DULCOLAX) PR PRN (14:45)
[2022-06-07] MEDS ORDERED: RT-ALBUTEROL/IPRATROPIUM 3 ML (DUONEB) VIAL INH PRN (14:45)
[2022-06-07] MEDS ORDERED: ARTIFICAL TEARS 0.4 ML UNIT DOSE (REFRESH PLUS) OU PRN (14:45)
[2022-06-07] MEDS ORDERED: ONDANSETRON 4 MG/2 ML (SDV) Z0FRAN IVP PRN (14:45)
[2022-06-07] MEDS ORDERED: ACETAMINOPHEN 650 MG SUPP (TYLENOL) PR PRN (14:45)
[2022-06-07] MEDS ORDERED: SALIVA STIMULANT MOUTH SPRAY (BIOTENE) 1.5 OZ MM PRN (14:45)
[2022-06-07] MEDS ORDERED: PROMETHAZINE INJ 25 MG/ML (PHENERGAN) AMP IVP PRN (14:45)
--- NOTE | 2022-06-07 14:58 | Progress Note - Hospitalist ---
SYDNEE MONTANO 06/07/22 1458: Subjective HPI/CC On Admission Date Seen by Provider: Jun 07, 2022 Time Seen by Provider: 11:05 CC: Hypotension from hypovolemic shock HPI: This is an 81yoWF who presented to the ER with weakness and found to have hypotension from dehydration. She recently was placed on abx for UTI but she had no signs of sepsis. Abdominal pain prompted CT scan in ER and was found to have findings consistent with gastric outlet mass with mets so Dr Mitchell will have OAC held and perform scope with biopsies to confirm suspicion of cancer. Subjective/Events-last exam Pt is awake and talking, with family in room. She is pain free at and 97% on room air. Dr. Mitchell discussed results of ex lap showing metastasis throughout abdominal cavity. She does not want cancer treatment and would like hospice care. Daughter reports she was made a DNR/DNI yesterday. She is NPO. Social care team will be in to talk to pt and family. Review of Systems General: No Chills, No Night Sweats Cardiovascular: No: Chest Pain Gastrointestinal: No: Nausea, Vomiting, Abdominal Pain Genitourinary: No Retention Neurological: Confusion (per daughter ), Other Objective Exam Vital Signs Vital Signs Date Time Temp Pulse Resp B/P (MAP) Pulse Ox O2 Delivery O2 Flow Rate FiO2 06/07/22 14:00 83 16 127/70 (89) 96 Room Air 06/07/22 08:00 36.0 06/06/22 21:00 06/05/22 15:22 24 Capillary Refill : Less Than 3 Seconds General Appearance: No Apparent Distress, Chronically ill, Obese, Other (Pt with moist towels over eyes. Appears comfortable. She talks some. ) HEENT: PERRL/EOMI, Moist Mucous Membranes Neck: Non Tender, Supple Respiratory: No Accessory Muscle Use, No Respiratory Distress, Crackles, Wheezing (bilaterally) Cardiovascular: No Gallop, No Murmur, Irregularly Irregular Gastrointestinal: Non Tender, Soft, Abnormal Bowel Sounds (decreased), Other (incisions clean dry and intact) Extremity: Non Tender, No Calf Tenderness, No Pedal Edema Neurologic/Psychiatric: Alert, Facial Droop (on left ), Other (pt responds to questions ) Skin: Normal Color, Warm/Dry Lymphatic: No Adenopathy Results/Procedures Lab Laboratory Tests 06/07/22 03:10 Patient resulted labs reviewed. Imaging: Reviewed Imaging Films, Reviewed Imaging Report Assessment/Plan Assessment and Plan Assess & Plan/Chief Complaint Assessment: Gastric/antral thickening Inoperable metastasis throughout abdominal cavity Malnutrition - NPO TIA - 06/03/22 Weight loss - N/V, anemia Critically ill - poor prognosis Hospice candidate Plan: Dr. Mitchell discussed results of ex lap with family and pt indicating mets throughout abdominal cavity. Pt does not want cancer treatment and is seeking hospice care. Will have social care team come speak with pt and her family. She continues NPO. Will monitor labs while here. She was made a DNR/DNI. Clinical Quality Measures DVT/VTE Risk/Contraindication: Contraindications-Pharm: Other *list below* Other: gastric cancer needs EGD DINORAH VARNER MD 06/07/22 1716: Supervisory-Addendum Brief Verification & Attestation Participated in pt care: history, MDM, physical Personally performed: exam, history, MDM, supervision of care Care discussed with: Medical Student Procedures: n/a Patient evaluated in conjunction with medical student electronic medical record reviewed discussed terminal prognosis with family who are in agreement with setting up hospice. They are agreement with comfort care will transfer to the floor and have palliative care help set up arrangements with hospice services. SYDNEE MONTANO Jun 07, 2022 14:58 DINORAH VARNER MD Jun 07, 2022 17:16
[2022-06-07] MEDS: LORazepam INJ 2 MG/ML (ATIVAN) VIAL IVP PRN (20:15)
[2022-06-08] MEDS: morphine INJ 4 MG/ML 1 ML (VIAL/SYRINGE) IV PRN (01:36)
--- NOTE | 2022-06-08 10:34 | Progress Note - Hospitalist ---
Subjective HPI/CC On Admission Date Seen by Provider: Jun 08, 2022 Time Seen by Provider: 10:00 CC: Hypotension from hypovolemic shock HPI: This is an 81yoWF who presented to the ER with weakness and found to have hypotension from dehydration. She recently was placed on abx for UTI but she had no signs of sepsis. Abdominal pain prompted CT scan in ER and was found to have findings consistent with gastric outlet mass with mets so Dr Mitchell will have OAC held and perform scope with biopsies to confirm suspicion of cancer. Subjective/Events-last exam Patient currently on arousable breathing easy with no respiratory distress. She required 1 dose of morphine per family request due to some agitated behavior mostly just picking it up the covers no evidence for pain. Daughter at bedside. Objective Exam Vital Signs Vital Signs Date Time Temp Pulse Resp B/P (MAP) Pulse Ox O2 Delivery O2 Flow Rate FiO2 06/08/22 08:00 Room Air 06/07/22 14:00 83 16 127/70 (89) 96 06/07/22 08:00 36.0 06/06/22 21:00 06/05/22 15:22 24 Capillary Refill : Less Than 3 Seconds General Appearance: No Apparent Distress, Chronically ill Respiratory: Other (Coarse bilateral breath sounds without wheezing respiratory rate 8 nonlabored) Cardiovascular: Regular Rate, Rhythm Results/Procedures Lab Patient resulted labs reviewed. Imaging: Reviewed Imaging Films, Reviewed Imaging Report Assessment/Plan Assessment and Plan Assess & Plan/Chief Complaint 1. Probable gastric cancer with extensive abdominal metastasis histopathology pending patient in the active stage of dying on comfort care. Discussed end-of-life issues with the daughter continue morphine as needed. 2. 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 Critical Care Critically Ill Patient Clinical Quality Measures DVT/VTE Risk/Contraindication: Contraindications-Pharm: Other *list below* Other: gastric cancer needs EGD DINORAH VARNER MD Jun 08, 2022 10:34
[2022-06-08] MEDS: LORazepam INJ 2 MG/ML (ATIVAN) VIAL IVP PRN ×2 (11:59→20:19)
[2022-06-08] MEDS: GLYCOPYRROLATE 0.2 MG/ML (ROBINUL) 2 ML VIAL IV PRN (18:55)
[2022-06-09] MEDS: morphine INJ 4 MG/ML 1 ML (VIAL/SYRINGE) IV PRN ×2 (07:40→20:43)
--- NOTE | 2022-06-09 09:46 | Progress Note - Hospitalist ---
Subjective HPI/CC On Admission Date Seen by Provider: Jun 09, 2022 Time Seen by Provider: 09:44 CC: Hypotension from hypovolemic shock HPI: This is an 81yoWF who presented to the ER with weakness and found to have hypotension from dehydration. She recently was placed on abx for UTI but she had no signs of sepsis. Abdominal pain prompted CT scan in ER and was found to have findings consistent with gastric outlet mass with mets so Dr Mitchell will have OAC held and perform scope with biopsies to confirm suspicion of cancer. Subjective/Events-last exam Patient not arousable sleeping appears to be in no acute distress with family at bedside. They cite no concerns about care with no evidence that the patient has been in distress. Objective Exam Vital Signs Vital Signs Date Time Temp Pulse Resp B/P (MAP) Pulse Ox O2 Delivery O2 Flow Rate FiO2 06/09/22 07:58 Room Air 06/09/22 07:26 0.00 06/07/22 14:00 83 16 127/70 (89) 96 06/07/22 08:00 36.0 06/05/22 15:22 24 Capillary Refill : Less Than 3 Seconds General Appearance: No Apparent Distress, Chronically ill Respiratory: No Accessory Muscle Use, No Respiratory Distress, Other (Coarse breath sounds bilaterally without wheezing) Cardiovascular: Regular Rate, Rhythm Results/Procedures Lab Patient resulted labs reviewed. Imaging: Reviewed Imaging Films, Reviewed Imaging Report Assessment/Plan Assessment and Plan Assess & Plan/Chief Complaint 1. Probable gastric cancer with extensive abdominal metastasis histopathology pending patient in the active stage of dying on comfort care. Discussed en d-of-life issues with the daughter continue morphine as needed. If does not appear eminent will need to discuss hospice at home versus hospice in a senior living facility the beginning of the week. 2. 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 Critical Care Critically Ill Patient Clinical Quality Measures DVT/VTE Risk/Contraindication: Contraindications-Pharm: Other *list below* Other: gastric cancer needs EGD DINORAH VARNER MD Jun 09, 2022 09:46
[2022-06-09] MEDS: LORazepam INJ 2 MG/ML (ATIVAN) VIAL IVP PRN (16:22)
[2022-06-09] MEDS: GLYCOPYRROLATE 0.2 MG/ML (ROBINUL) 2 ML VIAL IV PRN (20:42)
[2022-06-10] MEDS: GLYCOPYRROLATE 0.2 MG/ML (ROBINUL) 2 ML VIAL IV PRN ×3 (10:22→22:50)
[2022-06-10] MEDS: LORazepam INJ 2 MG/ML (ATIVAN) VIAL IVP PRN ×3 (10:22→22:51)
--- NOTE | 2022-06-10 13:43 | Progress Note ---
Subjective Subjective/Events-last exam Daughter at bedside reports patient hasn't spoken in 2 or 3 days, moves hands slightly but no other movement noted. She has not noted any grimacing or signs of pain. Objective Exam Last Set of Vital Signs Vital Signs Date Time Temp Pulse Resp B/P (MAP) Pulse Ox O2 Delivery O2 Flow Rate FiO2 06/10/22 10:10 Room Air 06/09/22 07:26 0.00 06/07/22 14:00 83 16 127/70 (89) 96 06/07/22 08:00 36.0 06/05/22 15:22 24 Capillary Refill : Less Than 3 Seconds I&O Intake and Output 06/10/22 00:00 Intake Total 0 ml Output Total 400 ml Balance -400 ml Intake Oral 0 ml Output Urine Total 400 ml General: Other (somnolent, breathing with mouth wide open) Extremities: Other (warm, no edema) Psych/Mental Status: Other (unresponsive to voice) Results/Procedures Lab Microbiology 06/04/22 Gram Stain - Final, Complete 06/04/22 Sputum Culture - Final, Complete YEAST 06/03/22 Blood Culture - Final, Complete No growth 05/31/22 Urine Culture - Final, Complete NO GROWTH Radiology Date of Exam:05/31/22 CT ABDOMEN/PELVIS WO PROCEDURE: CT abdomen and pelvis without contrast. TECHNIQUE: Multiple contiguous axial images were obtained through the abdomen and pelvis without the use of intravenous contrast. Auto Exposure Controls were utilized during the CT exam to meet ALARA standards for radiation dose reduction. INDICATION: Vomiting. Weakness. Nausea. COMPARISON: None FINDINGS: Included portions of the lung bases show large likely loculated subpulmonic pleural effusion in the right base. There is associated partial consolidation of the right lower lobe. Note is also made of mild cardiomegaly. Prominent pericardial lymph node is identified and measures 1 cm in diameter. There is also moderate calcified coronary atherosclerosis. CT ABDOMEN: Small amount of abdominopelvic ascites is present. There is no loculated fluid collection or free air. Small bowel loops are nondistended. There is scattered colonic diverticulosis, but no CT evidence of acute diverticulitis. Normal appendix cannot be adequately identified, but there is no pericecal inflammation. There is moderate distention of the stomach. There is abnormal thickened appearance to the antrum and distal body of the stomach. This does result in moderate narrowing of the lumen of the stomach in this area. This is suspicious for gastric malignancy. Several mildly prominent perigastric lymph nodes are also present. The kidneys, adrenal glands, spleen, pancreas, and liver have an unremarkable noncontrast CT appearance. There is moderate diffuse calcified aortic and arterial atherosclerosis. Osseous structures show no acute abnormalities. CT PELVIS: Small amount of free fluid is also present within the pelvis. There is no loculated fluid collection or free air. Urinary bladder is unopacified. No calculi are seen within the urinary bladder. No abnormal lymph nodes are seen. Osseous structures show no acute abnormalities. IMPRESSION: 1. Findings suspicious for malignant thickening of the distal body and antrum of the stomach. This may result in at least partial gastric outlet obstruction. Correlation with upper endoscopy is advised. 2. Moderate-sized likely loculated subpulmonic effusion in the right base. 3. Multiple mildly prominent perigastric and pericardial lymph nodes suspicious for metastatic disease. Correlation with CT PET is advised. 4. Mild abdominal pelvic ascites. 5. Colonic diverticulosis, but no CT evidence of acute diverticulitis. Dictated by: Dictated on workstation # [id number] Dict: 05/31/22 1355 Trans: 05/31/22 1650 [facility] [id number] Interpreted by: NITO QUIROGA MD Electronically signed by: NITO QUIROGA MD 05/31/22 1655 Assessment/Plan Assessment/Plan (1) Hypovolemic shock Status: Resolved Assessment & Plan: Resolved with IVF, secondary to poor intake due to gastric disease noted below. (2) Atrial fibrillation Status: Chronic (3) Duodenal mass Status: Acute Assessment & Plan: Seen on laparoscopy. (4) Gastric mass Status: Acute (5) Adenocarcinoma Status: Acute Assessment & Plan: Ascitic fluid cells positive for adenocarcinoma per path report. (6) Peritoneal lesion Status: Acute (7) TIA (transient ischemic attack) Status: Resolved Assessment & Plan: 06/03 had episode of left sided weakness, CT head okay and symptoms resolved. (8) Ascites Status: Acute Qualifiers: Qualified Codes: R18.0 - Malignant ascites (9) Need for comfort care Status: Acute Assessment & Plan: 06/10- Given metastatic intra abdominal cancer (now with path positive for adenocarcinoma from ascitic fluid) and rapid decline, patient and family have chosen to proceed with comfort goals, seems to be well managed currently but is unable to transfer to home with hospice given her unresponsiv eness. Continue comfort measures here. Clinical Quality Measures DVT/VTE Risk/Contraindication: Contraindications-Pharm: Other *list below* Other: gastric cancer needs EGD KODI COMBS MD Jun 10, 2022 13:43
[2022-06-10] MEDS: morphine INJ 4 MG/ML 1 ML (VIAL/SYRINGE) IV PRN (14:10)
[2022-06-11] MEDS: morphine INJ 4 MG/ML 1 ML (VIAL/SYRINGE) IV PRN ×5 (04:22→21:08)
[2022-06-11] MEDS: GLYCOPYRROLATE 0.2 MG/ML (ROBINUL) 2 ML VIAL IV PRN ×5 (04:22→21:08)
[2022-06-11] MEDS: LORazepam INJ 2 MG/ML (ATIVAN) VIAL IVP PRN ×3 (10:47→21:07)
--- NOTE | 2022-06-11 15:05 | Progress Note ---
Subjective Subjective/Events-last exam Daughter at bedside reports she has slightly more labored breathing, otherwise about the same as yesterday. Objective Exam Last Set of Vital Signs Vital Signs Date Time Temp Pulse Resp B/P (MAP) Pulse Ox O2 Delivery O2 Flow Rate FiO2 06/11/22 08:00 Room Air 06/09/22 07:26 0.00 06/07/22 14:00 83 16 127/70 (89) 96 06/07/22 08:00 36.0 06/05/22 15:22 24 Capillary Refill : Less Than 3 Seconds I&O Intake and Output 06/11/22 00:00 Intake Total 0 ml Output Total 270 ml Balance -270 ml Intake Oral 0 ml Output Urine Total 270 ml General: Other (unresponsive to voice, open mouthed breathing with small amount of rattling) Extremities: Other (warm, 2+ pedal pulses) Results/Procedures Lab Microbiology 06/04/22 Gram Stain - Final, Complete 06/04/22 Sputum Culture - Final, Complete YEAST 06/03/22 Blood Culture - Final, Complete No growth 05/31/22 Urine Culture - Final, Complete NO GROWTH Radiology Date of Exam:05/31/22 CT ABDOMEN/PELVIS WO PROCEDURE: CT abdomen and pelvis without contrast. TECHNIQUE: Multiple contiguous axial images were obtained through the abdomen and pelvis without the use of intravenous contrast. Auto Exposure Controls were utilized during the CT exam to meet ALARA standards for radiation dose reduction. INDICATION: Vomiting. Weakness. Nausea. COMPARISON: None FINDINGS: Included portions of the lung bases show large likely loculated subpulmonic pleural effusion in the right base. There is associated partial consolidation of the right lower lobe. Note is also made of mild cardiomegaly. Prominent pericardial lymph node is identified and measures 1 cm in diameter. There is also moderate calcified coronary atherosclerosis. CT ABDOMEN: Small amount of abdominopelvic ascites is present. There is no loculated fluid collection or free air. Small bowel loops are nondistended. There is scattered colonic diverticulosis, but no CT evidence of acute diverticulitis. Normal appendix cannot be adequately identified, but there is no pericecal inflammation. There is moderate distention of the stomach. There is abnormal thickened appearance to the antrum and distal body of the stomach. This does result in moderate narrowing of the lumen of the stomach in this area. This is suspicious for gastric malignancy. Several mildly prominent perigastric lymph nodes are also present. The kidneys, adrenal glands, spleen, pancreas, and liver have an unremarkable noncontrast CT appearance. There is moderate diffuse calcified aortic and arterial atherosclerosis. Osseous structures show no acute abnormalities. CT PELVIS: Small amount of free fluid is also present within the pelvis. There is no loculated fluid collection or free air. Urinary bladder is unopacified. No calculi are seen within the urinary bladder. No abnormal lymph nodes are seen. Osseous structures show no acute abnormalities. IMPRESSION: 1. Findings suspicious for malignant thickening of the distal body and antrum of the stomach. This may result in at least partial gastric outlet obstruction. Correlation with upper endoscopy is advised. 2. Moderate-sized likely loculated subpulmonic effusion in the right base. 3. Multiple mildly prominent perigastric and pericardial lymph nodes suspicious for metastatic disease. Correlation with CT PET is advised. 4. Mild abdominal pelvic ascites. 5. Colonic diverticulosis, but no CT evidence of acute diverticulitis. Dictated by: Dictated on workstation # [id number] Dict: 05/31/22 1355 Trans: 05/31/22 1650 [facility] [id number] Interpreted by: NITO QUIROGA MD Electronically signed by: NITO QUIROGA MD 05/31/22 4281 Assessment/Plan Assessment/Plan (1) Hypovolemic shock Status: Resolved Assessment & Plan: Resolved with IVF, secondary to poor intake due to gastric disease noted below. (2) Atrial fibrillation Status: Chronic (3) Duodenal mass Status: Acute Assessment & Plan: Seen on laparoscopy. (4) Gastric mass Status: Acute (5) Adenocarcinoma Status: Acute Assessment & Plan: Ascitic fluid cells positive for adenocarcinoma per path report. (6) Peritoneal lesion Status: Acute (7) TIA (transient ischemic attack) Status: Resolved Assessment & Plan: 06/03 had episode of left sided weakness, CT head okay and symptoms resolved. (8) Ascites Status: Acute Qualifiers: Qualified Codes: R18.0 - Malignant ascites (9) Need for comfort care Status: Acute Assessment & Plan: 06/10- Given metastatic intra abdominal cancer (now with path positive for adenocarcinoma from ascitic fluid) and rapid decline, patient and family have chosen to proceed with comfort goals, seems to be well managed currently but is unable to transfer to home with hospice given her unresponsiveness. Continue comfort measures here. 06/11- requiring slightly more morphine than prior days, continue to adjust as needed. Clinical Quality Measures DVT/VTE Risk/Contraindication: Contraindications-Pharm: Other *list below* Other: gastric cancer needs EGD KODI COMBS MD Jun 11, 2022 15:05
[2022-06-12] MEDS: GLYCOPYRROLATE 0.2 MG/ML (ROBINUL) 2 ML VIAL IV PRN (00:57)
[2022-06-12] MEDS: morphine INJ 4 MG/ML 1 ML (VIAL/SYRINGE) IV PRN ×2 (00:58→04:32)
[2022-06-12] MEDS: LORazepam INJ 2 MG/ML (ATIVAN) VIAL IVP PRN (04:33)
--- NOTE | 2022-06-14 13:47 | Discharge Summary ---
Discharge Summary Date of Admission May 31, 2022 at 14:37 Date of Discharge Jun 12, 2022 at 07:52 Admission Diagnosis Assessment: Shock Hypotension without evidence of sepsis Dehydration Gastric outlet mass with mets 100# weight loss in past 6 months Anemia AF OAC HLP UTI Plan: ICU IVF Cardiology Dr Mitchell Comfort Measures/ End of Life Care: Comfort Measures Discharge Diagnosis (1) Duodenal mass Status: Acute Assessment & Plan: EGD on 06/02 with signs of duodenal mass, purplish gastric inflammation, and hiatal hernia. 5 biopsies were obtained during the EGD which are still pending. 06/04: CA 19-9, CEA, and AFP are negative. 06/05: preliminary read of biopsy is that there is no obvious cancer. Dr. Manning discussed with general surgery. - Surgery planning diagnostic laprascopy with possible J tube placement and thoracentesis. (2) Gastric outlet obstruction Status: Acute Assessment & Plan: - Cont to monitor nausea and vomiting (3) TIA (transient ischemic attack) Status: Resolved Assessment & Plan: 06/03 PM patient had episode of aphasia and right sided weakness. Pt had CT Head nonCon which showed no acute intracranial findings, did show some mod to sev parenchymal volume loss. Patient's symptoms resolved shortly after CT head. Patient was started on a Heparin Drip since anticoagulation had been held during her hospitalization. - D/c Heparin drip for procedure. - will need to resume heparin post-procedure or transition to OACs if able to tolerate PO (4) Leukocytosis Status: Resolved Assessment & Plan: 06/03/22 WBC of 15.4, up from 6.6 on 06/02. Patient denies fevers or chills. Some coarse crackles on lung auscultation. On EGD, noted to have some food particles in the trachea which were removed, but concern for aspiration pneumonia. Procal of 1.07, LA 1.11. 06/03 CXR with unchanged [id number] R pleural effusion, no obvious consolidation or increase in infiltrates. 06/04: WBC of 10.0. 06/05: WBC of 7.5, prelim of yeast in sputum 06/06: WBC 5.7 - Blood cultures pending, no growth to date. - Cont Zosyn 4.5 mg IV q8 hours (started 06/03) - Cont Fluconazole (started 06/05) - s/p Ceftriaxone (05/31-06/03) (5) Generalized weakness Status: Chronic Assessment & Plan: - PT/OT ordered (6) Hypotension Status: Resolved Assessment & Plan: - Off pressors - Cont Lactated Ringers at 100ml/hr Qualifiers: Qualified Codes: I95.9 - Hypotension, unspecified (7) Atrial fibrillation with rapid ventricular response Status: Resolved Assessment & Plan: - Cont Digoxin 0.125 mg daily - Digoxin level ordered - Holding AC perioperatively, will need to either restart Heparin or OAC if tolerating PO. (8) Dehydration Status: Resolved (9) Weight loss Status: Chronic (10) Hypothyroidism Status: Chronic Assessment & Plan: - Cont Levothyroxine 112 mcg daily KODI COMBS MD Jun 14, 2022 13:47
== END 2022-06-12 07:52 | disposition expired | DRG 374 ==
LOC: EDUNIT# 12:29 → ER 12:31 → ICU 14:37 → 4TH 06-07 15:27
PROVIDERS: ADMIT Internal Medicine; ATTEND Family Medicine
PROC: 0DB78ZX Excision of Stomach, Pylorus, Via Natural or Artificial Opening Endoscopic, Diagnostic (ICD-10-PCS; 2022-06-02)
PROC: 0DB48ZX Excision of Esophagogastric Junction, Via Natural or Artificial Opening Endoscopic, Diagnostic (ICD-10-PCS; 2022-06-02)
PROC: 0DB98ZX Excision of Duodenum, Via Natural or Artificial Opening Endoscopic, Diagnostic (ICD-10-PCS; 2022-06-02)
PROC: 0DB68ZX Excision of Stomach, Via Natural or Artificial Opening Endoscopic, Diagnostic (ICD-10-PCS; 2022-06-06)
PROC: 0W9G3ZX Drainage of Peritoneal Cavity, Percutaneous Approach, Diagnostic (ICD-10-PCS; principal; 2022-06-06 12:07)
PROC: 0W993ZX Drainage of Right Pleural Cavity, Percutaneous Approach, Diagnostic (ICD-10-PCS; 2022-06-06 12:07)
DX: C16.2 Malignant neoplasm of body of stomach (principal); I63.9 Cerebral infarction, unspecified; C78.4 Secondary malignant neoplasm of small intestine; C78.6 Secondary malignant neoplasm of retroperitoneum and peritoneum; R18.0 Malignant ascites; K31.1 Adult hypertrophic pyloric stenosis; G81.94 Hemiplegia, unspecified affecting left nondominant side; G45.9 Transient cerebral ischemic attack, unspecified; I48.20 Chronic atrial fibrillation, unspecified; N39.0 Urinary tract infection, site not specified; E46 Unspecified protein-calorie malnutrition; K44.9 Diaphragmatic hernia without obstruction or gangrene; R57.1 Hypovolemic shock; Z66 Do not resuscitate; Z51.5 Encounter for palliative care; E86.0 Dehydration; E87.6 Hypokalemia; I10 Essential (primary) hypertension; E78.5 Hyperlipidemia, unspecified; J44.9 Chronic obstructive pulmonary disease, unspecified; Z68.31 Body mass index [BMI] 31.0-31.9, adult; K20.90 Esophagitis, unspecified without bleeding; I27.20 Pulmonary hypertension, unspecified; I08.0 Rheumatic disorders of both mitral and aortic valves; B96.89 Other specified bacterial agents as the cause of diseases classified elsewhere; Z87.891 Personal history of nicotine dependence; Z82.49 Family history of ischemic heart disease and other diseases of the circulatory system; Z88.1 Allergy status to other antibiotic agents
CPT/HCPCS: 36415; 51702; 70450; 71045; 74176; 80053; 80162; 81000; 82105; 82378; 82947; 83605; 83690; 83735; 84100; 84145; 84484; 85007; 85025; 85027; 85610; 85730; 86301; 87040; 87070; 87077; 87081; 87088; 87186; 87205; 93005; 93041; 93306; 94640; 94760; 96361; 96365; 96375; 96376